=== PATIENT | female | born 1945 | race Caucasian/White ===

== ENCOUNTER → 2016-03-22 | Outpatient (CLI) | payer OTHER ==
[~2016-03-22] MED LIST: ACET325T96 PO; ALBINS/ INH; AMT24 PO; ARTIOIN2 OPB; ARTISOL8 OPB; ARTISPR; ARTISPR PO; ASPCH81X PO; CARB1GEL14 OPB; CLON0.5T3 PO; CRAN1TAB3 PO; CRANLIQ PO; CYAN10005 PO; CYM/30 PO; DICL50TA3 PO; DOCU100C31 PO; DULCOLOX SUPP RE; FAMO1TAB71 PO; FURO-85 PO; GLC/500 PO; GUAISYP4 PO; HMLI SC; INSU100I SC; INSU100I2 SC; LACTCAP3 PO; LEVO50TA6 PO; LINA1CAP PO; LINICRE EXT; LVMI SC; METO1TAB66 PO; METO50TA7 PO; MOML PO; MORP1CAP PO; MORP1CAP96 PO; MORP30TA PO; MOUTLIQ80 PO; MOUTLIQ83 PO; ONDA4TAB46 PO; POLYPOW97 PO; POTA10CA28 PO; PROB1CAP54; SALI0.6510 NAE; SENN-65 PO; SIMV40TA2 PO; SODIENE PR; SPRIN/30 INH; SUMA50TA15 PO; TRAM-10 PO; VENL150T33 PO; [UNRECOGNIZED DRUG - CODE] PO
[2016-03-22 10:39] LABS: BASO % 0.3 %; BASO ABS # 0.02 K/uL (0-0.2); COMPLETE YES; EOS % 3.5 %; HEMATOCRIT 37.8 % (37-47); IG% 0.3 %; LYMPH ABS # 1.75 K/uL (1.2-3.4); MEAN CELL VOLUME 92.9 fL (80-100); MEAN CORPUSCULAR HEMOGLOBIN 29.2 pg (25-34); MEAN CORPUSCULAR HGB CONC 31.5 g/dl (32-36); MEAN PLATELET VOLUME 10.7 fL (7.4-10.4); MONO % 15.2 %; NEUT % 51.7 %; PLATELET COUNT 168 K/uL (130-400); RED BLOOD COUNT 4.07 M/uL (4.2-5.4); WHITE BLOOD COUNT 6.04 K/uL (4.8-10.8)
[2016-03-22 10:57] LABS: BLOOD UREA NITROGEN 17 mg/dl (7-18); BUN/CREATININE RATIO 18.8 (10-20); CALCIUM 9.1 mg/dl (8.5-10.1); CARBON DIOXIDE 33 mmol/L (21-32); CHLORIDE 104 mmol/L (98-107); CREATININE 0.92 mg/dl (0.60-1.20); GLUCOSE 106 mg/dl (70-99); POTASSIUM 4.1 mmol/L (3.5-5.1); SODIUM 144 mmol/L (136-145)
== END ==
LOC: C.LABCC 09:56
PROVIDERS: ATTEND Internal Medicine
DX: N64.9 Disorder of breast, unspecified (principal)

== ENCOUNTER 2016-05-17 07:59 | Day surgery (SDC) | payer OTHER ==
--- NOTE | 2016-04-04 15:41 | PAT Medication Instructions ---
Service Date Apr 04, 2016. Current Home Medication List Acetaminophen Tab (Tylenol), 650 MG PO Q6H PRN for PRN Carboxymethylcellulose-Glyceri (Refresh Optive 1-0.9 %), 1 DOSE OPB QID [place] Oil (Pharmaceutic Aid) ([place] Oil), 30 ML PO QPM Clonazepam (Klonopin), 0.25 MG PO QAM Cranberry (Vaccinium Macrocarp (Cranberry), 450 MG PO QAM Duloxetine HCl (Cymbalta), 1 CAP PO QAM Famotidine (Pepcid), 20 MG PO BID Furosemide (Lasix), 20 MG PO QAM Guaifenesin/Codeine (Robitussin-Ac Syrup), 10 ML PO Q6H PRN for RN Insulin Detemir (Levemir), 90 UNITS SC QPM Insulin Lispro (Humalog), 1 DOSE SC DIRECTED Insulin Lispro (Human) (Humalog Kwikpen), 20 UNITS SC TID Lactobacillus (Acidophilus), 1 CAP PO HS Levothyroxine Sodium (Levothyroxine Sodium), 1 TAB PO QAM Linaclotide (Linzess), 1 CAP PO QAM Lubiprostone (Amitiza), 24 MCG PO BID Magnesium Hydroxide (Milk Of Magnesia), 30 ML PO UD PRN for N Menthol-Methyl Salicylate (Marissa (Bengay Arthritis Formula), 1 DOSE EXT QID PRN for MUSCLE SPASMS Metformin Hcl (Glucophage), 500 MG PO BIDM Metoprolol Succinate (Toprol Xl), 50 MG PO BID Morphine Sulfate (Morphine Sulfate Er), 1 TAB PO Q8H Morphine Sulfate (Morphine Sulfate Er), 1 TAB PO Q8H Mouthwashes (Biotene Pbf Dry Mouth Ashlee), 1 SPRAY PO TID Ondansetron Hcl (Zofran), 4 MG PO Q8H PRN for Nausea Potassium Chloride (Micro-K Ext Rel), 2 TAB PO QAM Senna/Docusate Sod (Senokot S), 4 TAB PO TID Simvastatin (Zocor), 40 MG PO QPM Sodium Phosphate/Biphosphate (Fleet Enema), 1 EA HI DAILY PRN Sumatriptan Succinate (Imitrex), 50 MG PO PRN Tiotropium [place] (Spiriva Handihaler), 1 CAP INH QAM Tramadol (Ultram), 50 MG PO Q6 PRN for Pain Venlafaxine Hcl (Venlafaxine Hcl Er), 1 TAB PO QAM [Artificial Tears], 1 DROP OPB TID PRN for RN [Dulcolox Supp], 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 Instructions For Your Scheduled Surgery - Hold the following medications as of 04/04/16: Cranberry (Vaccinium Macrocarp (Cranberry), 450 MG PO QAM - Hold the following medications 24 hours prior to surgery: Menthol-Methyl Salicylate (Marissa (Bengay Arthritis Formula), 1 DOSE EXT QID PRN for MUSCLE SPASMS - Hold the following medications 48 hours prior to surgery: Metformin Hcl (Glucophage), 500 MG PO BIDM - Hold the following medications the morning of surgery: Carboxymethylcellulose-Glyceri (Refresh Optive 1-0.9 %), 1 DOSE OPB QID Furosemide (Lasix), 20 MG PO QAM Lubiprostone (Amitiza), 24 MCG PO BID Linaclotide (Linzess), 1 CAP PO QAM Mouthwashes (Biotene Pbf Dry Mouth [place]), 1 SPRAY PO TID Guaifenesin/Codeine (Robitussin-Ac Syrup), 10 ML PO Q6H PRN Magnesium Hydroxide (Milk Of Magnesia), 30 ML PO UD PRN [Dulcolox Supp], 1 SUPP RE UD PRN Senna/Docusate Sod (Senokot S), 4 TAB PO TID Sodium Phosphate/Biphosphate (Fleet Enema), 1 EA HI DAILY PRN Potassium Chloride (Micro-K Ext Rel), 2 TAB PO QAM Insulin Lispro (Human) (Humalog Kwikpen), 20 UNITS SC TID Insulin Lispro (Humalog), 1 DOSE SC DIRECTED - Take the following medications the morning of surgery with a sip of water: Acetaminophen Tab (Tylenol), 650 MG PO Q6H PRN for PRN (may take if needed up to 4 hours prior to surgery) Tramadol (Ultram), 50 MG PO Q6 PRN for Pain (may take if needed up to 4 hours prior to surgery) Morphine Sulfate (Morphine Sulfate Er), 1 TAB PO Q8H (may take if needed up to 4 hours prior to surgery) Morphine Sulfate (Morphine Sulfate Er), 1 TAB PO Q8H (may take if needed up to 4 hours prior to surgery) Duloxetine HCl (Cymbalta), 1 CAP PO QAM Famotidine (Pepcid), 20 MG PO BID Levothyroxine Sodium (Levothyroxine Sodium), 1 TAB PO QAM Metoprolol Succinate (Toprol Xl), 50 MG PO BID Clonazepam (Klonopin), 0.25 MG PO QAM Sumatriptan Succinate (Imitrex), 50 MG PO PRN Venlafaxine Hcl (Venlafaxine Hcl Er), 1 TAB PO QAM Tiotropium [place] (Spiriva Handihaler), 1 CAP INH QAM [Dulcolox Supp], 1 SUPP RE UD PRN [Artificial Tears], 1 DROP OPB TID PRN Ondansetron Hcl (Zofran), 4 MG PO Q8H PRN for Nausea - Take the following medications as scheduled the night before surgery: Acetaminophen Tab (Tylenol), 650 MG PO Q6H PRN for PRN Tramadol (Ultram), 50 MG PO Q6 PRN for Pain Morphine Sulfate (Morphine Sulfate Er), 1 TAB PO Q8H Morphine Sulfate (Morphine Sulfate Er), 1 TAB PO Q8H Carboxymethylcellulose-Glyceri (Refresh Optive 1-0.9 %), 1 DOSE OPB QID Famotidine (Pepcid), 20 MG PO BID Simvastatin (Zocor), 40 MG PO QPM Insulin Detemir (Levemir), 90 UNITS SC QPM Metoprolol Succinate (Toprol Xl), 50 MG PO BID Lubiprostone (Amitiza), 24 MCG PO BID Lactobacillus (Acidophilus), 1 CAP PO HS Sumatriptan Succinate (Imitrex), 50 MG PO PRN [place] Oil (Pharmaceutic Aid) ([place] Oil), 30 ML PO QPM Mouthwashes (Biotene Pbf Dry Mouth [place]), 1 SPRAY PO TID Guaifenesin/Codeine (Robitussin-Ac Syrup), 10 ML PO Q6H PRN Magnesium Hydroxide (Milk Of Magnesia), 30 ML PO UD PRN [Artificial Tears], 1 DROP OPB TID PRN Senna/Docusate Sod (Senokot S), 4 TAB PO TID Sodium Phosphate/Biphosphate (Fleet Enema), 1 EA HI DAILY PRN Ondansetron Hcl (Zofran), 4 MG PO Q8H PRN for Nausea Insulin Lispro (Human) (Humalog Kwikpen), 20 UNITS SC TID If you have any questions please call us at [phone] or [phone] or [phone]
[2016-04-04 15:43] VITALS: BMI 48.0
[2016-04-05 10:07] VITALS: BMI 48.0
[~2016-05-17] VITALS: Ht 167.6 cm; Wt 136.4 kg
[~2016-05-17 07:59] MED LIST changes: -ALBINS/ INH; -ARTIOIN2 OPB; -ARTISPR; -ARTISPR PO; -ASPCH81X PO; -CRANLIQ PO; -CYAN10005 PO; -DICL50TA3 PO; -INSU100I SC; +LACTATED RINGER'S 1000ML 1,000 ML IV SCH; +METO-452 PO; -METO1TAB66 PO; -METO50TA7 PO; -MORP30TA PO; -MOUTLIQ83 PO; -PROB1CAP54; -SALI0.6510 NAE
[2016-05-17 09:20] VITALS: BP 135/66; PULSE 89; TEMP 37.7; O2SAT 92; Ht 167.6 cm; Wt 136.4 kg
[2016-05-17] MEDS ORDERED: FENTANYL CITRATE INJ 50 MCG/1 ML 2 ML VIAL ONE (09:48)
[2016-05-17] MEDS ORDERED: MIDAZOLAM HCL 1 MG/ML 2ML VIAL ONE (09:48)
[2016-05-17] MEDS ORDERED: BUPIVACAINE/EPINEPHRINE 0.5% MPF 1:200,000 30 ML VIAL ONE (10:07)
[2016-05-17] MEDS ORDERED: NURSING VERBAL MED ORDER ONE (10:15)
[2016-05-17] MEDS ORDERED: CIPROFLOXACIN / D5W 400 MG IV SCH (10:15)
[2016-05-17] MEDS ORDERED: CIPROFLOXACIN 400MG / 200ML D5W ONE (10:19)
--- NOTE | 2016-05-17 10:19 | History and Physical ---
History & Physical Date May 17, 2016. Chief Complaint pt had abnormal mammogram and bx and excisional bx recommended...pt had needle loc earlier to day and is here for excisional bx History of Present Illness The patient is a 71 year old female with complaints of Past Medical/Surgical History Medical Problems: (1) Chronic urinary tract infection (2) Diabetes mellitus (3) fibromyalgia (4) Herniated disc (5) Hypothyroidism (6) Multiple sclerosis Additional History Hepatic Disease: No Endocrine Disorder: Yes (hypothyroid) Kidney Disease: Yes (hematoma of kidney; vascular disorder of kidney; kidney stones) Hypertension: Yes Other: MS; parkinson's disease; diabetes mellitus; bipolar disorder; Allergies Coded Allergies: Adhesives (Verified Allergy, Unknown, unknown, 05/17/16) Amitriptyline (Verified Allergy, Unknown, unknown, 05/17/16) Amoxicillin (Verified Allergy, Unknown, unknown, 05/17/16) Baclofen (Verified Allergy, Unknown, unknown, 05/17/16) Benzalkonium Chloride (Verified Allergy, Unknown, UNKNOWN, 05/17/16) Benzocaine (Verified Allergy, Unknown, UNKNOWN, 05/17/16) Erythromycin (Verified Allergy, Unknown, unknown, 05/17/16) Isoflurane (Verified Allergy, Unknown, unknown, 05/17/16) Lanolin (Verified Allergy, Unknown, unknown, 05/17/16) Latex (Verified Allergy, Unknown, unknown, 05/17/16) Nitrofurantoin (Verified Allergy, Unknown, unknown, 05/17/16) Oxycodone (Verified Allergy, Unknown, unknown, 05/17/16) PATIENT TOLERATES MORPHINE Penicillins (Verified Allergy, Unknown, unknown, 05/17/16) Procaine (Verified Allergy, Unknown, unknown, 05/17/16) Promethazine (Verified Allergy, Unknown, unknown, 05/17/16) Propoxyphene (Verified Allergy, Unknown, unknown, 05/17/16) Sulfa Drugs (Verified Allergy, Unknown, unknown - CAN TAKE LASIX, 05/17/16) Zinc (Verified Allergy, Unknown, UNKNOWN, 05/17/16) Prednisone (Verified Adverse Reaction, Unknown, UNKNOWN, 05/17/16) Home Medications Scheduled Carboxymethylcellulose-Glyceri (Refresh Optive 1-0.9 %), 1 DOSE OPB QID [place] Oil (Pharmaceutic Aid) ([place] Oil), 30 ML PO QPM Clonazepam (Klonopin), 0.25 MG PO QAM Cranberry (Vaccinium Macrocarp (Cranberry), 450 MG PO QAM Duloxetine HCl (Cymbalta), 1 CAP PO QAM Famotidine (Pepcid), 20 MG PO BID Furosemide (Lasix), 20 MG PO QAM Insulin Detemir (Levemir), 90 UNITS SC QPM Insulin Lispro (Humalog), 1 DOSE SC DIRECTED Insulin Lispro (Human) (Humalog Kwikpen), 20 UNITS SC TID Lactobacillus (Acidophilus), 1 CAP PO HS Levothyroxine Sodium (Levothyroxine Sodium), 1 TAB PO QAM Linaclotide (Linzess), 1 CAP PO QAM Lubiprostone (Amitiza), 24 MCG PO BID Metformin Hcl (Glucophage), 500 MG PO BIDM Metoprolol Succinate (Toprol Xl), 50 MG PO BID Morphine Sulfate (Morphine Sulfate Er), 1 TAB PO Q8H Morphine Sulfate (Morphine Sulfate Er), 1 TAB PO Q8H Mouthwashes (Biotene Pbf Dry Mouth [place]), 1 SPRAY PO TID Potassium Chloride (Micro-K Ext Rel), 2 TAB PO QAM Senna/Docusate Sod (Senokot S), 4 TAB PO TID Simvastatin (Zocor), 40 MG PO QPM Sodium Phosphate/Biphosphate (Fleet Enema), [address] DAILY PRN Sumatriptan Succinate (Imitrex), 50 MG PO PRN Tiotropium [place] (Spiriva Handihaler), 1 CAP INH QAM Venlafaxine Hcl (Venlafaxine Hcl Er), 1 TAB PO QAM Scheduled PRN Acetaminophen Tab (Tylenol), 650 MG PO Q6H PRN for PRN Guaifenesin/Codeine (Robitussin-Ac Syrup), 10 ML PO Q6H PRN for RN Magnesium Hydroxide (Milk Of Magnesia), 30 ML PO UD PRN for N Menthol-Methyl Salicylate (Marissa (Bengay Arthritis Formula), 1 DOSE EXT QID PRN for MUSCLE SPASMS Ondansetron Hcl (Zofran), 4 MG PO Q8H PRN for Nausea Tramadol (Ultram), 50 MG PO Q6 PRN for Pain [Artificial Tears], 1 DROP OPB TID PRN for RN [Dulcolox Supp], 1 SUPP RE UD PRN for RN Physical Examination Skin: warm/dry Eyes: EOMI Head: normocephalic Neck: supple, no adenopathy Respiratory/Chest: no respiratory distress Cardiovascular: regular rate, rhythm Abdomen / GI: non tender Extremities: normal inspection Addiitonal Comments: nonpalpable breast mass. needle in place Diagnosis nonpalpable breast mass.... Plan of Treatment discussed options/risks. plan excisional bx of breast abnormality with needle loc.
[2016-05-17] MEDS ORDERED: ATROPINE SULFATE 0.1 MG/ML 5ML SYR IV PRN (10:30)
[2016-05-17] MEDS ORDERED: EpHEDrine SULFATE INJ 50 MG/ML AMP IV PRN (10:30)
[2016-05-17] MEDS ORDERED: ONDANSETRON INJ 2 MG/ML 2 ML VIAL IV PRN ×2 (10:30→12:00)
[2016-05-17] MEDS ORDERED: PROPOFOL IV EMULSION 10 MG/ML 20 ML VIAL IV ONE (11:00)
[2016-05-17] MEDS ORDERED: LIDOCAINE HCL 2% 2 ML VIAL (20MG/ML) ONE (11:00)
[2016-05-17] MEDS ORDERED: TISSEEL FIBRIN SEALANT 4ML TOP ONE (11:46)
[2016-05-17] MEDS ORDERED: SODIUM CHLORIDE 0.9% 1000ML 1,000 ML IV SCH (11:47)
[2016-05-17] MEDS: FENTANYL CITRATE INJ 50 MCG/1 ML 2 ML VIAL IV PRN ×4 (11:50→12:05)
--- NOTE | 2016-05-17 11:50 | [facility] Operative Report ---
Operative Report Operative Date May 17, 2016. Pre-Operative Diagnosis Abnormal Mammogram, Nonpalable Breast Mass Post-Operative Diagnosis same Procedure(s) Performed right breast lumpectomy s/p needle loc Surgeon Time Signal Wirer Surgeon(s) None Estimated Blood Loss 30 ml Findings abnormal breast tissue...neoplasm vs scarring Specimens A. Right breast tissue /2 short superior and 1 long lateral -Faxitron in room and sent to lab fresh at 1128 Anesthesia mac Disposition Recovery Room / PACU I attest to the content of the Intraoperative Record and any orders documented therein. Any exceptions are noted below.
--- NOTE | 2016-05-17 11:55 | Discharge Instructions ---
Discharge Instructions Date of Service May 17, 2016. Admission Reason for Admission: Rt Breast Lump, Diabetes, Parkinson's/Hosp Loc Discharge Discharge Diagnosis / Problem: right breast mass Discharge Goals Goal(s): Diagnostic testing, Prevent Disease Progression Activity Recommendations Activity Limitations: resume your previous activity Shower/Bathe: tomorrow . Instructions / Follow-Up Instructions / Follow-Up f/u as scheduled with dr. rivas on may 30. call [phone] if any problems or questions..... Current Hospital Diet Patient's current hospital diet: Discharge Diet Recommended Diet: Regular Diet Procedures Procedures Performed: Excisional Biopsy Right Breast with Needle Localization Pending Studies Studies pending at discharge: yes List of pending studies: path report Medical Emergencies . Who to Call and When: Medical Emergencies: If at any time you feel your situation is an emergency, please call 911 immediately. . Non-Emergent Contact Non-Emergency issues call your: Primary Care Provider, Surgeon Call Non-Emergent contact if: temperature is above 101, wound has increased drainage, wound has increased redness, wound has increased pain . "Provider Documentation" section prepared by Mason Rivas. VTE Core Measure Inpt VTE Proph given/why not?: SCD's
[2016-05-17] MEDS ORDERED: MoRPHine SULFATE 4 MG/ML 1 ML CARP\\VIAL IV PRN (12:00)
--- NOTE | 2016-05-17 12:18 | Anesthesiology Progress Note ---
Anesthesia Post Op Note Date & Time May 17, 2016 at 12:18 Vital Signs Vital Signs Past 12 Hours Date Time Temp Pulse Resp B/P Pulse Ox O2 Delivery O2 Flow Rate FiO2 05/17/16 12:10 79 16 126/87 100 Room Air 05/17/16 12:01 81 16 139/99 100 Room Air 05/17/16 11:51 79 16 131/85 94 Room Air 05/17/16 11:44 36.5 79 16 126/76 94 Room Air 05/17/16 09:20 37.7 89 20 135/66 92 Room Air Notes Mental Status: alert / awake / arousable, participated in evaluation Pt Amnestic to Procedure: Yes Nausea / Vomiting: adequately controlled Pain: adequately controlled Airway Patency, RR, SpO2: stable & adequate BP & HR: stable & adequate Hydration State: stable & adequate Anesthetic Complications: no major complications apparent
--- NOTE | 2016-05-17 12:22 | OPERATIVE REPORT ---
DATE OF OPERATION: 05/17/2016 PREOPERATIVE DIAGNOSIS: Abnormal mammogram of the right breast. POSTOPERATIVE DIAGNOSIS: Same. PROCEDURE: Right breast excisional biopsy after wire localization by radiology. SURGEON: Dr. Rivas. ESTIMATED BLOOD LOSS: Approximately 30 mL. COMPLICATIONS: No immediate. ANESTHESIA: MAC with local anesthetic. OPERATIVE NOTE: After informed consent was obtained, the patient was taken to the operating suite, placed in supine position. IV sedation was administered by anesthesia and titrated to effect. The tape and bandage from the needle was taken down and the right breast including the wire were sterilely prepped and draped in usual fashion. prior to incision we did use Marcaine with epinephrine to inject the skin as well as the deep spaces. We tried to create a field block around the area of the known lump. We then made an incision curvilinear just lateral to the wire. We carried this down through the skin and soft tissue using electrocautery. We made skin flaps medially and laterally. I then cut the wire and pulled it through the skin so it was in the middle of the incision. We then continued to use traction countertraction, retractors and electrocautery to continue to take down breast tissue at 360 degrees around the wire keeping it centrally located. We controlled bleeding points as we went primarily with cautery. We did tie off one of the vessels with 3-0 Vicryl. We continued to come down around the tip of the wire. We removed the specimen as 1 piece and oriented it such as 2 short sutures were superior 1 long suture laterally. It was then passed off. Radiograph was performed and did in fact show the clip as well as the wire centrally located in the specimen. We then thoroughly irrigated the wound. We controlled any small bleeders with electrocautery and then covered all the raw surfaces with Tisseel sealant. I then closed the wound with 2-0 Vicryl for the deep layers, 3-0 Vicryl for the mid layers and 4-0 Monocryl for the skin. Dermabond glue was used as a dressing. The patient was awakened and transferred to recovery in stable condition. I attest to the content of the Intraoperative Record and any orders documented therein. Any exceptio ns are noted below.
[2016-05-17 12:30] VITALS: BP 137/84; PULSE 79; TEMP 36.6; O2SAT 97
[2016-05-17 13:00] VITALS: BP 132/81; PULSE 80; O2SAT 97
--- NOTE | 2016-05-17 13:33 | MAMMOGRAPHY REPORT ---
NEEDLE LOCALIZATION RIGHT BREAST: 05/17/2016 CLINICAL HISTORY: Previous biopsy of a hypoechoic lesion in the right 10:00 breast yielded an atypic al glandular proliferation. PROCEDURE DESCRIPTION: The procedure was somewhat difficult due to difficulties with patient derick mary. She remains on a gurney and has difficulties being placed in a oblique position and cannot op timally raise her arm over her head. With imaging guidance, aseptic technique, and 1% lidocaine as the local anesthetic, the area of concern in the right breast at 10:00 was localized under ultrasoun d guidance with a 5 cm Hubbard II needle. The path of approach was lateral. The needle was removed . The hypoechoic lesion and associated biopsy marker clip is located approximately 1 cm proximal to the hook of the wire. The patient tolerated the procedure without complication. COMPARISON: Comparison is made to exams dated: 12/24/2014 ultrasound and 01/18/2016 ultrasound biops [facility]. IMPRESSION: NEEDLE LOCALIZATION Ultrasound guided needle localization of the hypoechoic lesion and associated biopsy marker clip in the right 10:00 breast. Miranda Thapa M.D. /:05/17/2016 08:54:53 Website Designer: Suzanne Cosme, [facility]
--- NOTE | 2016-05-17 13:33 | MAMMOGRAPHY REPORT ---
SPECIMEN RIGHT BREAST: 05/17/2016 CLINICAL HISTORY: Status post right breast surgical excision. COMPARISON: Comparison is made to exams dated: 02/24/2015 aspiration, 12/13/2015 ultrasound, and 12/21 ultrasound biopsy - [facility]. Findings: A radiograph was performed of the right breast surgical specimen. The localized biopsy ma rker clip is present centrally within the specimen. The intact needle localization wire is also pre sent. A vague density with probable associated architectural distortion is seen in the region of th e biopsy marker clip, which likely correlates with the biopsied hypoechoic lesion on ultrasound. Re sults were discussed with Dr. Rivas over the telephone. IMPRESSION: SPECIMEN The imaged specimen contains the localized biopsy marker clip. Miranda Thapa M.D. /:05/17/2016 11:51:06 Tray Delivery Aide: Suzanne Cosme, [facility]
[2016-05-17 13:36] VITALS: BP 132/81; PULSE 80; TEMP 36.6; O2SAT 97
[2016-06-21] MEDS ORDERED: LACTCAP3 PO (09:41)
[2016-06-21] MEDS ORDERED: AMT24 PO (09:41)
[2016-06-21] MEDS ORDERED: METO50TA7 PO (09:41)
[2016-06-21] MEDS ORDERED: MOUTLIQ83 PO (09:41)
[2016-06-21] MEDS ORDERED: SALI0.6510 NAE (09:41)
[2016-06-21] MEDS ORDERED: INSU100I SC (09:41)
[2016-06-21] MEDS ORDERED: CYAN10005 PO (09:41)
[2016-06-21] MEDS ORDERED: ASPCH81X PO (09:41)
[2016-06-21] MEDS ORDERED: ALBINS/ INH (09:41)
[2016-06-21] MEDS ORDERED: CRANLIQ PO (09:41)
[2016-06-28] MEDS ORDERED: LACTCAP3 PO (12:48)
[2016-06-28] MEDS ORDERED: ARTIOIN2 OPB (12:48)
[2016-06-28] MEDS ORDERED: AMT24 PO (12:48)
[2016-06-28] MEDS ORDERED: ARTISPR PO (12:48)
[2016-06-28] MEDS ORDERED: DICL50TA3 PO (12:48)
[2016-07-02] MEDS ORDERED: AMT24 PO (08:48)
[2016-07-02] MEDS ORDERED: PROB1CAP54 (08:48)
[2016-07-02] MEDS ORDERED: ARTISPR (09:09)
[2016-07-02] MEDS ORDERED: MORP30TA PO (12:11)
== END 2016-05-17 13:45 ==
LOC: C.ACU 07:59
PROVIDERS: ATTEND Surgery
DX: D05.91 Unspecified type of carcinoma in situ of right breast (principal); D24.1 Benign neoplasm of right breast; G35 Multiple sclerosis; E11.9 Type 2 diabetes mellitus without complications; E03.9 Hypothyroidism, unspecified; M51.9 Unspecified thoracic, thoracolumbar and lumbosacral intervertebral disc disorder; Z88.0 Allergy status to penicillin; Z88.1 Allergy status to other antibiotic agents; Z88.5 Allergy status to narcotic agent; Z88.8 Allergy status to other drugs, medicaments and biological substances

== ENCOUNTER → 2016-05-17 | Outpatient (CLI) | payer OTHER ==
[~2016-05-17] MED LIST changes: -DOCU100C31 PO; -POLYPOW97 PO
[2016-05-18 17:36] LABS: ALBUMIN 3.1 G/DL (3.8-4.8); GAMMA GLOBULIN 0.5 G/DL (0.8-1.7); TOTAL PROTEIN 5.5 G/DL (6.2-8.3)
--- NOTE | 2016-05-21 12:05 | CODING QUERY MEDICAL NECESSITY ---
SUPPORTING DIAGNOSIS NEEDED A supporting diagnosis is required for the test/procedure performed on this patient in order for us to be reimbursed by the patient's insurance. Please provide a supporting diagnosis for the following test/procedure listed below next to the test name along with your signature. *If there is no additional diagnosis for this patient that would support the following test/procedure please document that below next to the test/procedure. Test(s)/Procedure(s) that require a supporting diagnosis: * VITAMIN B-12 LEVEL DIAGNOSIS: * DOS: 05/17/16 Provider Signature: Date: Thank you Joy Triplett Health Information Management Once completed, please kindly fax back to [phone] For questions please call [phone]
== END ==
LOC: C.LABCC 08:06
PROVIDERS: ATTEND Internal Medicine
DX: G35 Multiple sclerosis (principal); I63.9 Cerebral infarction, unspecified; G62.9 Polyneuropathy, unspecified; R29.898 Other symptoms and signs involving the musculoskeletal system

== ENCOUNTER → 2016-06-15 | Outpatient (CLI) | payer OTHER ==
[~2016-06-15] MED LIST changes: +ALBINS/ INH; +ARTIOIN2 OPB; +ARTISPR; +ARTISPR PO; +ASPCH81X PO; +CEPH500C PO; +CRANLIQ PO; +CYAN10005 PO; +DICL50TA3 PO; +INSU100I SC; -LACTATED RINGER'S 1000ML 1,000 ML IV SCH; +METO50TA7 PO; +MORP30TA PO; +MOUTLIQ83 PO; +PROB1CAP54; +SALI0.6510 NAE
[2016-06-15 17:12] LABS: BLOOD UREA NITROGEN 28 mg/dl (7-18); CREATININE 0.78 mg/dl (0.60-1.20)
== END ==
LOC: C.LABCC 16:43
PROVIDERS: ATTEND Internal Medicine
DX: Z01.818 Encounter for other preprocedural examination (principal)

== ENCOUNTER → 2016-06-28 | Outpatient (CLI) | payer OTHER ==
[~2016-06-28] MED LIST changes: -CARB1GEL14 OPB; -DULCOLOX SUPP RE; -GUAISYP4 PO; -INSU100I2 SC; -METO-452 PO; -MOML PO; -MOUTLIQ80 PO; -SODIENE PR; -SUMA50TA15 PO; -[UNRECOGNIZED DRUG - CODE] PO
[2016-06-28 08:36] LABS: BASO % 0.3 %; BASO ABS # 0.02 K/uL (0-0.2); COMPLETE YES; EOS % 2.8 %; HEMATOCRIT 37.4 % (37-47); IG% 0.3 %; LYMPH % 20.1 %; LYMPH ABS # 1.49 K/uL (1.2-3.4); MEAN CELL VOLUME 91.9 fL (80-100); MEAN CORPUSCULAR HEMOGLOBIN 28.7 pg (25-34); MEAN CORPUSCULAR HGB CONC 31.3 g/dl (32-36); MEAN PLATELET VOLUME 10.4 fL (7.4-10.4); MONO % 11.5 %; PLATELET COUNT 165 K/uL (130-400); RED BLOOD COUNT 4.07 M/uL (4.2-5.4); WHITE BLOOD COUNT 7.42 K/uL (4.8-10.8)
[2016-06-28 08:44] LABS: ALT/SGPT 21 U/L (12-78); BLOOD UREA NITROGEN 26 mg/dl (7-18); BUN/CREATININE RATIO 34.5 (10-20); CARBON DIOXIDE 31 mmol/L (21-32); CHLORIDE 102 mmol/L (98-107); CHOLESTEROL 180 mg/dl (0-200); CREATININE 0.74 mg/dl (0.60-1.20); GLUCOSE 181 mg/dl (70-99); POTASSIUM 4.6 mmol/L (3.5-5.1); SODIUM 140 mmol/L (136-145)
[2016-06-28 08:48] LABS: CALCIUM 9.4 mg/dl (8.5-10.1)
[2016-06-28 08:54] LABS: ALKALINE PHOSPHATASE 141 U/L (45-117); AST/SGOT 13 U/L (15-37); HDL CHOLESTEROL 45 mg/dl; LDL CHOLESTEROL CALCULATED 73 mg/dl; TRIGLYCERIDES 311 mg/dl (0-150); VERY LOW DENSITY LIPOPROT CALC 62 mg/dl
[2016-06-28 09:46] LABS: ESTIMATED AVERAGE GLUCOSE 146 mg/dl; HA1C FLAG Normal (Normal)
== END ==
LOC: C.LABCC 08:04
PROVIDERS: ATTEND Internal Medicine
DX: I10 Essential (primary) hypertension (principal); F32.9 Major depressive disorder, single episode, unspecified; E11.9 Type 2 diabetes mellitus without complications; J44.9 Chronic obstructive pulmonary disease, unspecified

== ENCOUNTER → 2016-07-02 | Day surgery (SDC) | payer OTHER ==
[2016-06-28 12:14] VITALS: BMI 48.0
--- NOTE | 2016-06-28 17:28 | PAT Medication Instructions ---
Service Date June 28, 2016. Current Home Medication List Acetaminophen Tab (Tylenol), 650 MG PO Q6H PRN for PRN Albuterol Sulf (Proventil 0.083% 2.5MG/3ML), 2.5 MG INH Q4H PRN for Shortness of Breath Artificial Saliva (Biotene Moisturizing Mout), 1 SPRAY PO TID Artificial Tear Ointment (Refresh Lacri-Lube), 1 DOSE OPB QID PRN for DRY EYES Aspirin (Aspirin Chewable), 81 MG PO QAM Clonazepam (Klonopin), 0.25 MG PO QAM Cranberry (Vaccinium Macrocarp (Cranberry), 450 MG PO QAM Cranberry-Vitamin C-Inulin (Uti-Stat), 30 ML PO DAILY Cyanocobalamin (Vitamin B-12), 1,000 MCG PO DAILY Diclofenac (Voltaren), 50 MG PO Q8H PRN for HEADACHE Duloxetine HCl (Cymbalta), 1 CAP PO QAM Famotidine (Pepcid), 20 MG PO BID Furosemide (Lasix), 20 MG PO QAM Insulin Detemir (Levemir), 90 UNITS SC QPM Insulin Lispro (Humalog), 1 DOSE SC QID Insulin Lispro (Human) (Humalog), 20 UNITS SC AC Lactobacillus (Acidophilus), 1 CAP PO HS Levothyroxine Sodium (Levothyroxine Sodium), 1 TAB PO QAM Linaclotide (Linzess), 1 CAP PO QAM Lubiprostone (Amitiza), 24 MCG PO BID Menthol-Methyl Salicylate (Marissa (Bengay Arthritis Formula), 1 DOSE EXT QID PRN for MUSCLE SPASMS Metformin Hcl (Glucophage), 500 MG PO BIDM Metoprolol Succ (Toprol Xl) (Toprol-Xl), 1 TAB PO BID Morphine Sulfate (Morphine Sulfate Er), 1 TAB PO Q8H Morphine Sulfate (Morphine Sulfate Er), 1 TAB PO Q8H Ondansetron Hcl (Zofran), 4 MG PO Q8H PRN for Nausea Potassium Chloride (Micro-K Ext Rel), 2 TAB PO QAM Saline ([place] Nasal [place]), 1 SPRAY LITA BID Senna/Docusate Sod (Senokot S), 4 TAB PO TID Simvastatin (Zocor), 40 MG PO QPM Tiotropium [place] (Spiriva Handihaler), 1 CAP INH QAM Tramadol (Ultram), 50 MG PO Q6 PRN for Pain Venlafaxine Hcl (Venlafaxine Hcl Er), 1 TAB PO QAM [Artificial Tears], 1 DROP OPB BID 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 Instructions For Your Scheduled Surgery Aspirin (Aspirin Chewable), 81 MG PO QAM (per surgeon instructions) Diclofenac (Voltaren), 50 MG PO Q8H PRN for HEADACHE (per surgeon instructions) - Hold the following medications starting today 06/28/16: Cranberry (Vaccinium Macrocarp (Cranberry), 450 MG PO QAM Cranberry-Vitamin C-Inulin (Uti-Stat), 30 ML PO DAILY - Hold the following medications 48 hours prior to surgery: Metformin Hcl (Glucophage), 500 MG PO BIDM - Hold the following medications 24 hours prior to surgery: Menthol-Methyl Salicylate (Marissa ([place]eng[place] Arthritis Formula), 1 DOSE EXT QID PRN for MUSCLE SPASMS - Hold the following medications the morning of surgery: Senna/Docusate Sod (Senokot S), 4 TAB PO TID Potassium Chloride (Micro-K Ext Rel), 2 TAB PO QAM Linaclotide (Linzess), 1 CAP PO QAM Insulin Lispro (Human) (Humalog), 20 UNITS SC AC Furosemide (Lasix), 20 MG PO QAM Cyanocobalamin (Vitamin B-12), 1,000 MCG PO DAILY Artificial Saliva (Biotene Moisturizing Mout), 1 SPRAY PO TID Lubiprostone (Amitiza), 24 MCG PO BID - Take the following medications the morning of surgery with a sip of water: Venlafaxine Hcl (Venlafaxine Hcl Er), 1 TAB PO QAM Artificial Tears 1 DROP OPB BID PRN for RN Tiotropium [place] (Spiriva Handihaler), 1 CAP INH QAM Tramadol (Ultram), 50 MG PO Q6 PRN for Pain (can take up to four hours prior to surgery if needed) Saline ([place] Nasal [place]), 1 SPRAY LITA BID Ondansetron Hcl (Zofran), 4 MG PO Q8H PRN for Nausea (only if needed) Morphine Sulfate (Morphine Sulfate Er), 1 TAB PO Q8H (can take up to four hours prior to surgery if needed) Metoprolol Succ (Toprol Xl) (Toprol-Xl), 1 TAB PO BID Levothyroxine Sodium (Levothyroxine Sodium), 1 TAB PO QAM Famotidine (Pepcid), 20 MG PO BID Duloxetine HCl (Cymbalta), 1 CAP PO QAM Clonazepam (Klonopin), 0.25 MG PO QAM Artificial Tear Ointment (Refresh Lacri-Lube), 1 DOSE OPB QID PRN for DRY EYES Albuterol Sulf (Proventil 0.083% 2.5MG/3ML), 2.5 MG INH Q4H PRN for Shortness of Breath (if needed) Acetaminophen Tab (Tylenol), 650 MG PO Q6H PRN for PRN (if needed) - Take the following medications as scheduled the night before surgery: Artificial Tears 1 DROP OPB BID PRN for RN Tramadol (Ultram), 50 MG PO Q6 PRN for Pain Simvastatin (Zocor), 40 MG PO QPM Senna/Docusate Sod (Senokot S), 4 TAB PO TID Saline ([place] Nasal [place]), 1 SPRAY LITA BID Ondansetron Hcl (Zofran), 4 MG PO Q8H PRN for Nausea (only if needed) Morphine Sulfate (Morphine Sulfate Er), 1 TAB PO Q8H Metoprolol Succ (Toprol Xl) (Toprol-Xl), 1 TAB PO BID Lactobacillus (Acidophilus), 1 CAP PO HS Insulin Lispro (Human) (Humalog), 20 UNITS SC AC Insulin Detemir (Levemir), 90 UNITS SC QPM Famotidine (Pepcid), 20 MG PO BID Artificial Tear Ointment (Refresh Lacri-Lube), 1 DOSE OPB QID PRN for DRY EYES Artificial Saliva (Biotene Moisturizing Mout), 1 SPRAY PO TID Albuterol Sulf (Proventil 0.083% 2.5MG/3ML), 2.5 MG INH Q4H PRN for Shortness of Breath Acetaminophen Tab (Tylenol), 650 MG PO Q6H PRN for PRN Lubiprostone (Amitiza), 24 MCG PO BID If you have any questions please call us at [phone] or [phone] ( [place]) or [phone]
[~2016-07-02] VITALS: Ht 167.6 cm; Wt 136.4 kg
[~2016-07-02] MED LIST changes: +ATROPINE SULFATE 0.1 MG/ML 5ML SYR IV PRN; +BUPIVACAINE 0.5 % 5 MG/1 ML MPF 30ML VIAL ONE; +CLINDAMYCIN IV 900 MG in DEXTROSE 5% ADD-VANTAGE 100ML 100 ML IV SCH; +DEXAMETHASONE SOD INJ 4 MG/ML VIAL ONE; +EpHEDrine SULFATE INJ 50 MG/ML AMP IV PRN; +FENTANYL CITRATE INJ 50 MCG/1 ML 2 ML VIAL IV PRN; +FENTANYL CITRATE INJ 50 MCG/1 ML 2 ML VIAL ONE; +ISOSULFAN BLUE 10 MG/ML VIAL 5 ML ONE; +LACTATED RINGER'S 1000ML 1,000 ML IV SCH; +LIDOCAINE HCL 2% 2 ML VIAL (20MG/ML) ONE; +MIDAZOLAM HCL 1 MG/ML 2ML VIAL ONE; -MOUTLIQ83 PO; +MoRPHine SULFATE IR 15 MG TAB (IMMEDIATE RELEASE) PO PRN; +ONDANSETRON INJ 2 MG/ML 2 ML VIAL ONE; +PROPOFOL IV EMULSION 10 MG/ML 20 ML VIAL IV ONE
[2016-07-02 08:53] VITALS: BP 131/63; PULSE 87; TEMP 37.3; O2SAT 95; Ht 167.6 cm; Wt 136.4 kg
--- NOTE | 2016-07-02 09:27 | History & Physical Bridge Note ---
H&P Re-Evaluation Bridge Note: I have examined the patient, reviewed the History & Physical and in the interval since the performance of the History & Physical I have noted the following changes of clinical significance: No changes noted
--- NOTE | 2016-07-02 10:21 | DIAGNOSTIC IMAGING REPORT ---
LYMPHOSCINTIGRAPHY CLINICAL HISTORY: Right breast cancer. PROCEDURE: Using standard sterile technique, 4 intradermal and one deep injection of 0.537 mCi of Lymphoseek was placed in the right breast. The patient tolerated the procedure well. There were no immediate complications. The patient was subsequently transported to the surgical suite. No imaging was obtained at the referring physician's request. IMPRESSION: Injection of 0.537 mCi of Lymphoseek in the right breast. Electronically signed by: Morgan Kelly M.D. 07/02/2016 10:20 AM Dictated Date/Time: 07/02/2016 10:20 AM
--- NOTE | 2016-07-02 11:49 | [facility] Post Operative Brief Note ---
Immediate Operative Summary Operative Date July 02, 2016. Pre-Operative Diagnosis Rt breast cancer Post-Operative Diagnosis same Procedure(s) Performed Rt sentinel lymph node biopsy Surgeon Ld Gift Shop Manager Surgeon(s) Shanta Desai Estimated Blood Loss 10cc Findings sentinel lymph node- negative on frozen section Specimens lymph node Anesthesia gen/ LMA Complication(s) None Disposition Recovery Room / PACU
--- NOTE | 2016-07-02 12:14 | Discharge Instructions ---
Discharge Instructions Date of Service July 02, 2016. Visit Reason for Visit: Right Breast Cancer, Diabetes Discharge Discharge Diagnosis / Problem: Rt breast cancer Discharge Goals Goal(s): Decrease discomfort, Improve function, Improve disease control Activity Recommendations Activity Limitations: as noted below Lifting Limitations: gradually increase as tolerated Exercise/Sports Limitations: gradually increase as tolerated May Resume Sexual Activity: when tolerated Shower/Bathe: tomorrow (do not soak in tub until sutures are removed) SPECIAL CARE INSTRUCTIONS: * Cover incisions and change daily for comfort/drainage. * May use ibuprofen for pain as tolerated. * Expect some swelling and bruising. Call your doctor if: * Temperature above 101 degrees * Pain not relieved by pain medicine ordered * There is increased drainage or redness from any incision * You have any unanswered questions or concerns [phone]. FOLLOW UP VISIT: If not already scheduled, please call the office for a follow-up visit. for 2 weeks- suture removal OFFICE PHONE NUMBER: Dr. Jaffe Office Anesthesia . Post Anesthesia Instructions: If you have had General Anesthesia or IV Sedation: * Do not drive today. * Resume driving when surgeon permits. * Do not make important decisions or sign legal documents today. * Call surgeon for: 1. Temperature elevations greater than 101 degrees F. 2. Uncontrollable pain. 3. Excessive bleeding. 4. Persistent nausea and vomiting. 5. Medication intolerance (nausea, vomiting or rash). * For nausea and vomiting use only clear liquids such as: tea, soda, bouillon until nausea subsides, then gradually increase diet as tolerated. * If you have any concerns or questions, call your surgeon's office. If physician is unavailable and it is an emergency, call 911 or go to the nearest emergency room. . Diet Recommendations Recommended Home Diet: resume previous diet Procedures Procedures Performed: Right [place] Lymph Node Biopsy Pending Studies Studies pending at discharge: no Medical Emergencies . Who to Call and When: Medical Emergencies: If at any time you feel your situation is an emergency, please call 911 immediately. . Non-Emergent Contact Non-Emergency issues call your: Primary Care Provider, Surgeon . . "Provider Documentation" section prepared by Gian Jaffe. .
--- NOTE | 2016-07-02 12:40 | Anesthesiology Progress Note ---
Anesthesia Post Op Note Date & Time July 02, 2016 at 12:40 Vital Signs Pain Intensity: 9 Vital Signs Past 12 Hours Date Time Temp Pulse Resp B/P Pulse Ox O2 Delivery O2 Flow Rate FiO2 07/02/16 12:03 36.2 94 14 122/74 93 Room Air 07/02/16 08:53 37.3 87 20 131/63 95 Room Air Notes Mental Status: alert / awake / arousable, participated in evaluation Pt Amnestic to Procedure: Yes Nausea / Vomiting: adequately controlled Pain: adequately controlled Airway Patency, RR, SpO2: stable & adequate BP & HR: stable & adequate Hydration State: stable & adequate Anesthetic Complications: no major complications apparent
--- NOTE | 2016-07-02 12:48 | OPERATIVE REPORT ---
DATE OF OPERATION: 07/02/2016 NAME OF OPERATION: Right sentinel lymph node biopsy. PREOPERATIVE DIAGNOSIS: Right breast cancer. POSTOPERATIVE DIAGNOSIS: Same. STAFF SURGEON: Dr. Jaffe. ANESTHESIA: General. DESCRIPTION OF PROCEDURE: The patient was brought in the operating room and placed on the operating table in supine position. Her right arm was extended on an arm board. Her right axilla was prepped and draped in usual fashion. Using the Neoprobe, incision was made in the right axilla using 0.5% plain Marcaine to anesthetize the skin and subcutaneous tissue. The dissection was carried down deeply into the axilla, identifying the lymph node using the Neoprobe. Initially, the activity was minimal; however, when I dissected deeper, I was able to identify the lymph node and dissected from surrounding tissue. Tissue was ligated using 2-0 silk suture. Lymph node was then sent for frozen section and found to be negative. Deep tissue was reapproximated using 2-0 plain catgut suture then the skin reapproximated using 4-0 nylon suture. The patient was transferred to recovery room in stable condition. I attest to the content of the Intraoperative Record and any orders documented therein. Any exceptio ns are noted below.
[2016-07-02 12:55] VITALS: BP 119/61; PULSE 93; TEMP 36.8; O2SAT 93
[2016-07-02 13:25] VITALS: BP 142/69; PULSE 90; O2SAT 94
[2016-07-02 14:00] VITALS: BP 145/84; PULSE 95; O2SAT 92
== END | disposition home or self-care (01) ==
LOC: C.ACU 08:31
PROVIDERS: ATTEND Surgery
DX: C50.911 Malignant neoplasm of unspecified site of right female breast (principal); M19.90 Unspecified osteoarthritis, unspecified site; F30.9 Manic episode, unspecified; J44.9 Chronic obstructive pulmonary disease, unspecified; E11.9 Type 2 diabetes mellitus without complications; M79.7 Fibromyalgia; I10 Essential (primary) hypertension; E03.9 Hypothyroidism, unspecified; G35 Multiple sclerosis; Z96.649 Presence of unspecified artificial hip joint; Z87.891 Personal history of nicotine dependence; Z80.0 Family history of malignant neoplasm of digestive organs; Z80.3 Family history of malignant neoplasm of breast

== ENCOUNTER → 2016-07-17 | Outpatient (CLI) | payer OTHER ==
[~2016-07-17] MED LIST changes: -ARTISPR; -ATROPINE SULFATE 0.1 MG/ML 5ML SYR IV PRN; -BUPIVACAINE 0.5 % 5 MG/1 ML MPF 30ML VIAL ONE; -CLINDAMYCIN IV 900 MG in DEXTROSE 5% ADD-VANTAGE 100ML 100 ML IV SCH; -DEXAMETHASONE SOD INJ 4 MG/ML VIAL ONE; -EpHEDrine SULFATE INJ 50 MG/ML AMP IV PRN; -FENTANYL CITRATE INJ 50 MCG/1 ML 2 ML VIAL IV PRN; -FENTANYL CITRATE INJ 50 MCG/1 ML 2 ML VIAL ONE; -ISOSULFAN BLUE 10 MG/ML VIAL 5 ML ONE; -LACTATED RINGER'S 1000ML 1,000 ML IV SCH; -LIDOCAINE HCL 2% 2 ML VIAL (20MG/ML) ONE; -MIDAZOLAM HCL 1 MG/ML 2ML VIAL ONE; -MoRPHine SULFATE IR 15 MG TAB (IMMEDIATE RELEASE) PO PRN; -ONDANSETRON INJ 2 MG/ML 2 ML VIAL ONE; -PROPOFOL IV EMULSION 10 MG/ML 20 ML VIAL IV ONE
[2016-07-17 10:05] LABS: BASO % 0.5 %; BASO ABS # 0.04 K/uL (0-0.2); COMPLETE YES; EOS % 3.5 %; HEMATOCRIT 36.8 % (37-47); IG% 0.1 %; LYMPH % 23.6 %; MEAN CELL VOLUME 91.5 fL (80-100); MEAN CORPUSCULAR HEMOGLOBIN 29.4 pg (25-34); MEAN CORPUSCULAR HGB CONC 32.1 g/dl (32-36); MEAN PLATELET VOLUME 10.1 fL (7.4-10.4); MONO % 10.2 %; NEUT % 62.1 %; PLATELET COUNT 166 K/uL (130-400); RED BLOOD COUNT 4.02 M/uL (4.2-5.4); WHITE BLOOD COUNT 8.49 K/uL (4.8-10.8)
[2016-07-17 10:10] LABS: BLOOD UREA NITROGEN 21 mg/dl (7-18); CARBON DIOXIDE 31 mmol/L (21-32); CHLORIDE 102 mmol/L (98-107); CREATININE 0.93 mg/dl (0.60-1.20); GLUCOSE 304 mg/dl (70-99); POTASSIUM 4.3 mmol/L (3.5-5.1); SODIUM 140 mmol/L (136-145)
[2016-07-17 10:13] LABS: ALB/GLOB RATIO 0.8 (0.9-2); ALT/SGPT 23 U/L (12-78); AST/SGOT 12 U/L (15-37)
[2016-07-17 10:20] LABS: ALKALINE PHOSPHATASE 164 U/L (45-117); BETA-HYDROXYBUTYRATE 0.94 mg/dL (0.2-2.81); CALCIUM 8.8 mg/dl (8.5-10.1)
== END | disposition home or self-care (01) ==
LOC: C.LABCC 09:39
PROVIDERS: ATTEND Internal Medicine
DX: C50.919 Malignant neoplasm of unspecified site of unspecified female breast (principal)

== ENCOUNTER → 2016-07-18 | Outpatient (CLI) | payer OTHER | LOC: C.LABCC 15:41 | PROVIDERS: ATTEND Internal Medicine | DX: C50.919 Malignant neoplasm of unspecified site of unspecified female breast (principal) ==

== ENCOUNTER → 2016-08-14 | Outpatient (CLI) | payer OTHER ==
[2016-08-14 10:19] LABS: BLOOD UREA NITROGEN 27 mg/dl (7-18)
== END ==
LOC: C.LABCC 07:47
PROVIDERS: ATTEND Internal Medicine
DX: C50.919 Malignant neoplasm of unspecified site of unspecified female breast (principal)

== ENCOUNTER → 2016-09-05 | Outpatient (CLI) | payer OTHER ==
[~2016-09-05] MED LIST changes: -CEPH500C PO
[2016-09-05 09:40] LABS: MEAN CORPUSCULAR HGB CONC 31.3 g/dl (32-36); MEAN PLATELET VOLUME 10.8 fL (7.4-10.4); PLATELET COUNT 131 K/uL (130-400)
[2016-09-05 09:50] LABS: ALB/GLOB RATIO 0.9 (0.9-2); ALT/SGPT 36 U/L (12-78); AST/SGOT 24 U/L (15-37); BLOOD UREA NITROGEN 20 mg/dl (7-18); BUN/CREATININE RATIO 19.8 (10-20); CARBON DIOXIDE 35 mmol/L (21-32); CHLORIDE 102 mmol/L (98-107); GLUCOSE 347 mg/dl (70-99); POTASSIUM 4.5 mmol/L (3.5-5.1); SODIUM 140 mmol/L (136-145)
[2016-09-05 09:58] LABS: ALKALINE PHOSPHATASE 126 U/L (45-117)
[2016-09-05 10:48] LABS: HEMATOCRIT 39.3 % (37-47); MEAN CELL VOLUME 93.8 fL (80-100); MEAN CORPUSCULAR HEMOGLOBIN 29.4 pg (25-34); RED BLOOD COUNT 4.19 M/uL (4.2-5.4); WHITE BLOOD COUNT 4.35 K/uL (4.8-10.8)
[2016-09-05 10:51] LABS: BASO % 0.5 %; BASO ABS # 0.02 K/uL (0-0.2); COMPLETE YES; EOS % 3.7 %; IG% 0.5 %; LYMPH % 24.1 %; LYMPH ABS # 1.05 K/uL (1.2-3.4); MONO % 21.4 %; NEUT % 49.8 %
== END | disposition home or self-care (01) ==
LOC: C.LABCC 09:25
PROVIDERS: ATTEND Internal Medicine
DX: C50.919 Malignant neoplasm of unspecified site of unspecified female breast (principal)

== ENCOUNTER 2016-12-31 17:42 | Emergency (ER) | payer OTHER ==
[~2016-12-31] VITALS: Ht 172.7 cm; Wt 110.5 kg
[2016-12-31 17:51] VITALS: TEMP 37.3; Ht 172.7 cm; Wt 110.5 kg
[2016-12-31 18:35] LABS: BASO % 0.5 %; BASO ABS # 0.04 K/uL (0-0.2); COMPLETE YES; HEMATOCRIT 38.1 % (37-47); IG% 0.1 %; LYMPH % 18.7 %; MEAN CELL VOLUME 94.3 fL (80-100); MEAN CORPUSCULAR HEMOGLOBIN 29.7 pg (25-34); MEAN CORPUSCULAR HGB CONC 31.5 g/dl (32-36); MEAN PLATELET VOLUME 10.2 fL (7.4-10.4); MONO % 8.2 %; NEUT % 69.5 %; PLATELET COUNT 164 K/uL (130-400); RED BLOOD COUNT 4.04 M/uL (4.2-5.4); WHITE BLOOD COUNT 8.56 K/uL (4.8-10.8)
[2016-12-31 18:52] LABS: ALT/SGPT 30 U/L (12-78); BLOOD UREA NITROGEN 20 mg/dl (7-18); BUN/CREATININE RATIO 21.5 (10-20); CALCIUM 9.2 mg/dl (8.5-10.1); CARBON DIOXIDE 30 mmol/L (21-32); CHLORIDE 100 mmol/L (98-107); CREATININE 0.93 mg/dl (0.60-1.20); GLUCOSE 184 mg/dl (70-99); POTASSIUM 4.6 mmol/L (3.5-5.1); SODIUM 140 mmol/L (136-145)
[2016-12-31 18:55] LABS: ALKALINE PHOSPHATASE 145 U/L (45-117); AST/SGOT 22 U/L (15-37)
--- NOTE | 2016-12-31 19:02 | DIAGNOSTIC IMAGING REPORT ---
LUMBAR SPINE WITHOUT CLINICAL HISTORY: Lower back and abdominal pain. COMPARISON STUDY: CT of the lumbar spine August 21, 2012. FINDINGS: Mild dextroscoliosis of the lumbar spine is noted. A mild superior endplate L1 compression fracture is unchanged since CT of August 21, 2012. There is no acute lumbar spine fracture or subluxation. Disc space narrowing with osteophytosis and vacuum disc phenomenon at L5-S1 is similar to prior exam. Central canal and neural foramen are suboptimally assessed by CT. Paravertebral soft tissues are unremarkable. The CT of the abdomen and pelvis will be reported separately. There is moderate multilevel facet arthrosis. IMPRESSION: 1. No acute lumbar spine fracture or subluxation. 2. Old mild superior endplate L1 compression fracture which is unchanged since CT of August 21, 2012. 3. Moderate multilevel degenerative disc disease and facet arthrosis of the lumbar spine. Electronically signed by: Rojelio Bill M.D. 12/31/2016 7:00 PM Dictated Date/Time: 12/31/2016 6:55 PM
--- NOTE | 2016-12-31 19:04 | DIAGNOSTIC IMAGING REPORT ---
ABDOMEN AND PELVIS CT WITHOUT CONTRAST CT DOSE: 1820.71 mGy.cm HISTORY: Acute low back and abdominal pain. No reported trauma lower back pain TECHNIQUE: Multiaxial CT images of the abdomen and pelvis were performed without contrast. A dose lowering technique was utilized adhering to the principles of ALARA. COMPARISON STUDY: CT abdomen and pelvis 05/22/2012. FINDINGS: Lung bases are generally clear. Small left Bochdalek hernia. There is no pneumoperitoneum. Study is mildly limited secondary to patient arm positioning. The imaged inferior cardiac chambers are unremarkable. There are calcifications of the mitral annulus. Nonspecific calcification of the right hepatic lobe near the middle hepatic vein. 11 mm low attenuating lesion of the inferior right hepatic lobe and 9 mm low attenuating lesion of the lateral left hepatic lobe are noted in addition to a 9 mm lesion of the hepatic dome. These lesions are nonspecific however suggests hepatic cysts. Gallbladder is contracted. The spleen and left adrenal gland are unremarkable. There is a low attenuating 10 mm right adrenal nodule suggesting an adenoma. Multifocal renal parenchymal scarring and cortical lobulation is present bilaterally. Multiple bilateral low attenuating renal lesions suggests cysts. Cysts with calcifications are noted in the inferior pole left kidney compatible with complex cysts. Focal area of increased attenuation within the interpolar left kidney, 4 mm may also reflect a complex cyst. Nonobstructing 3 mm calculus seen within the interpolar right kidney. No ureteral calculi or hydronephrosis. Moderate left fat filled inguinal hernias noted containing a portion of the left lateral urinary bladder. Nonspecific calcifications are seen within the hernia sac. Uterus appears age-appropriate. No definite adnexal mass lesions identified. Moderate to extensive atherosclerosis of the abdominal aorta. No bulky adenopathy identified. No bowel obstruction or focal bowel wall thickening. Moderate stool volume throughout the colon with mild rectal wall thickening. Scattered noninflamed colonic diverticulosis. The appendix appears noninflamed. Diastases recti. Right hip arthroplasty noted. Bones appear mildly demineralized. Multilevel degenerative changes of the spine. Dextroscoliosis of the lumbar spine. IMPRESSION: 1. Moderate stool volume throughout the colon suggest constipation. Mild associated rectal wall thickening may reflect underlying stercoral proctitis. No bowel obstruction. 2. Normal appendix. 3. Colonic diverticulosis without diverticulitis. 4. 3 mm nonobstructing calculus of the interpolar right kidney. 5. Moderate sized fat filled left inguinal hernia contains a portion of the anterolateral left urinary bladder. 6. Additional findings as above. Electronically signed by: Eric Oconnor M.D. 12/31/2016 7:03 PM Dictated Date/Time: 12/31/2016 6:53 PM
[2016-12-31 22:26] LABS: URINE APPEARANCE CLOUDY (CLEAR); URINE BILIRUBIN NEG (NEG); URINE COLOR YELLOW; URINE EPITHELIAL CELL AUTO >30 /lpf (0-5); URINE NITRITE NEG (NEG); URINE PH 6.5 (4.5-7.5); URINE SPECIFIC GRAVITY 1.014 (1.000-1.030); UROBILINOGEN NEG (NEG); ZZURINE CULT IF INDIC CATH YES
[2016-12-31 22:30] LABS: MANUAL MICROSCOPIC REQUIRED? NO; REVIEW REQ? YES
[2016-12-31] MEDS ORDERED: CEPH500C PO (22:49)
[2016-12-31] MEDS ORDERED: CEPHALEXIN MONOHYDRATE 250 MG CAP PO ONE (23:00)
--- NOTE | 2016-12-31 23:38 | EMERGENCY ROOM VISIT NOTE ---
History Report prepared by Amelia: Shruti Elizabeth Under the Supervision of: Anjel RiosO. First contact with patient: 17:48 Stated Complaint: BACK PAIN History of Present Illness The patient is a 71 year old female who presents to the Emergency Room with complaints of constant lower back pain beginning 4 days ago. The patient states that she has a history of MS and has been having back pain for the last 4 days. She reports that she does not normally get out of bed and her last bowel movement was this afternoon. She notes that her back pain is worsened with sitting up. The patient denies any new pain, numbness or weakness, new urinary symptoms, new abdominal pain, nausea, vomiting, dysuria, and recent trauma. She notes that her left leg is normally slightly weaker than right. Source of History: patient Onset: 4 days ago Position: back (lower) Timing: constant Modifying Factors (Worsening): other (sitting up) Associated Symptoms: No nausea, No vomiting, No abdominal pain, No urinary symptoms, No weakness, No numbness Note: The patient denies any new pain and recent trauma. Review of Systems See HPI for pertinent positives & negatives. A total of 10 systems reviewed and were otherwise negative. Past Medical & Surgical Medical Problems: (1) Chronic urinary tract infection (2) Diabetes mellitus (3) fibromyalgia (4) Herniated disc (5) Hypothyroidism (6) Multiple sclerosis Family History No pertinent family history stated. Social History Smoking Status: Never Smoker Marital Status: Housing Status: halfway Occupation Status: retired Current/Historical Medications Scheduled Artificial Saliva (Biotene Moisturizing Mout), 1 SPRAY PO TID Aspirin (Aspirin Chewable), 81 MG PO QAM Cephalexin Monohydrate (Keflex), 500 MG PO TID Clonazepam (Klonopin), 0.25 MG PO QAM Cranberry (Vaccinium Macrocarp (Cranberry), 450 MG PO QAM Cranberry-Vitamin C-Inulin (Uti-Stat), 30 ML PO DAILY Cyanocobalamin (Vitamin B-12), 1,000 MCG PO DAILY Duloxetine HCl (Cymbalta), 1 CAP PO QAM Famotidine (Pepcid), 20 MG PO BID Furosemide (Lasix), 20 MG PO QAM Insulin Detemir (Levemir), 90 UNITS SC QPM Insulin Lispro (Humalog), 1 DOSE SC QID Insulin Lispro (Human) (Humalog), 20 UNITS SC AC Lactobacillus (Acidophilus), 1 CAP PO HS Levothyroxine Sodium (Levothyroxine Sodium), 1 TAB PO QAM Linaclotide (Linzess), 1 CAP PO QAM Lubiprostone (Amitiza), 24 MCG PO BID Metformin Hcl (Glucophage), 500 MG PO BIDM Metoprolol Succ (Toprol Xl) (Toprol-Xl), 1 TAB PO BID Morphine Sulfate (Morphine Sulfate Er), 1 TAB PO Q8H Morphine Sulfate (Morphine Sulfate Er), 1 TAB PO Q8H Morphine Sulfate (Morphine Sulfate Ir), 30 MG PO Q4 Potassium Chloride (Micro-K Ext Rel), 2 TAB PO QAM Saline (Camanche Nasal [place]), 1 SPRAY LITA BID Senna/Docusate Sod (Senokot S), 4 TAB PO TID Simvastatin (Zocor), 40 MG PO QPM Tiotropium Morrow (Spiriva Handihaler), 1 CAP INH QAM Venlafaxine Hcl (Venlafaxine Hcl Er), 1 TAB PO QAM Scheduled PRN Acetaminophen Tab (Tylenol), 650 MG PO Q6H PRN for PRN Albuterol Sulf (Proventil 0.083% 2.5MG/3ML), 2.5 MG INH Q4H PRN for Shortness of Breath Artificial Tear Ointment (Refresh Lacri-Lube), 1 DOSE OPB QID PRN for DRY EYES Diclofenac (Voltaren), 50 MG PO Q8H PRN for HEADACHE Menthol-Methyl Salicylate (Marissa (Bengay Arthritis Formula), 1 DOSE EXT QID PRN for MUSCLE SPASMS Ondansetron Hcl (Zofran), 4 MG PO Q8H PRN for Nausea Tramadol (Ultram), 50 MG PO Q6 PRN for Pain [Artificial Tears], 1 DROP OPB BID PRN for RN Miscellaneous Medications Probiotic Product (Acidophilus) Allergies Coded Allergies: Adhesives (Verified Allergy, Unknown, unknown, 07/02/16) Amitriptyline (Verified Allergy, Unknown, unknown, 07/02/16) Amoxicillin (Verified Allergy, Unknown, unknown, 07/02/16) Baclofen (Verified Allergy, Unknown, unknown, 07/02/16) Benzalkonium Chloride (Verified Allergy, Unknown, UNKNOWN, 07/02/16) Benzocaine (Verified Allergy, Unknown, UNKNOWN, 07/02/16) Erythromycin (Verified Allergy, Unknown, unknown, 07/02/16) Isoflurane (Verified Allergy, Unknown, unknown, 07/02/16) Lanolin (Verified Allergy, Unknown, unknown, 07/02/16) Latex (Verified Allergy, Unknown, unknown, 07/02/16) Nitrofurantoin (Verified Allergy, Unknown, unknown, 07/02/16) Oxycodone (Verified Allergy, Unknown, unknown, 07/02/16) PATIENT TOLERATES MORPHINE Penicillins (Verified Allergy, Unknown, unknown, 07/02/16) Procaine (Verified Allergy, Unknown, unknown, 07/02/16) Promethazine (Verified Allergy, Unknown, unknown, 07/02/16) Propoxyphene (Verified Allergy, Unknown, unknown, 07/02/16) Sulfa Antibiotics (Verified Allergy, Unknown, CAN TAKE LASIX, 07/02/16) Zinc (Verified Allergy, Unknown, UNKNOWN, 07/02/16) Prednisone (Verified Adverse Reaction, Unknown, UNKNOWN, 07/02/16) Uncoded Allergies: STEROID (Allergy, Intermediate, Unknown, 07/02/16) Physical Exam Vital Signs Date Time Temp Pulse Resp B/P (MAP) Pulse Ox O2 Delivery O2 Flow Rate FiO2 12/31/16 21:14 92 20 90/72 95 Room Air 12/31/16 17:51 37.3 96 18 133/81 93 Room Air Physical Exam GENERAL: Laying in bed, alert, chronically ill appearing appearing, well nourished, no distress, non-toxic EYE EXAM: normal conjunctiva. OROPHARYNX: no exudate, no erythema, lips, buccal mucosa, and tongue normal and mucous membranes are moist NECK: supple, no nuchal rigidity, no adenopathy, non-tender LUNGS: Clear to auscultation. Normal chest wall mechanics HEART: no murmurs, S1 normal and S2 normal ABDOMEN: abdomen soft, non-tender, normo-active bowel sounds, no masses, no rebound or guarding. BACK: Back is symmetrical on inspection and there is no deformity, no midline tenderness, no CVA tenderness. Bilateral mid to upper lumbar paraspinal tenderness to palpation. SKIN: no rashes and no bruising UPPER EXTREMITIES: upper extremities are grossly normal. LOWER EXTREMITIES: No pitting edema. Flexes at the right hip, unable to flex with hip (old per patient) plantar and dorsal flexion intact along with EHL. NEURO EXAM: Normal sensorium, cranial nerves II-XII grossly intact, normal speech, no gross weakness of arms. Medical Decision & Procedures ER Provider Diagnostic Interpretation: Radiology results as stated below per my review and the radiologist's interpretation: LUMBAR SPINE WITHOUT FINDINGS: Mild dextroscoliosis of the lumbar spine is noted. A mild superior endplate L1 compression fracture is unchanged since CT of August 21, 2012. There is no acute lumbar spine fracture or subluxation. Disc space narrowing with osteophytosis and vacuum disc phenomenon at L5-S1 is similar to prior exam. Central canal and neural foramen are suboptimally assessed by CT. Paravertebral soft tissues are unremarkable. The CT of the abdomen and pelvis will be reported separately. There is moderate multilevel facet arthrosis. IMPRESSION: 1. No acute lumbar spine fracture or subluxation. 2. Old mild superior endplate L1 compression fracture which is unchanged since CT of August 21, 2012. 3. Moderate multilevel degenerative disc disease and facet arthrosis of the lumbar spine. Electronically signed by: Rojelio Bill M.D. 12/31/2016 7:00 PM Dictated Date/Time: 12/31/2016 6:55 PM [address]EN AND PELVIS CT WITHOUT CONTRAST FINDINGS: Lung bases are generally clear. Small left Bochdalek hernia. There is no pneumoperitoneum. Study is mildly limited secondary to patient arm positioning. The imaged inferior cardiac chambers are unremarkable. There are calcifications of the mitral annulus. Nonspecific calcification of the right hepatic lobe near the middle hepatic vein. 11 mm low attenuating lesion of the inferior right hepatic lobe and 9 mm low attenuating lesion of the lateral left hepatic lobe are noted in addition to a 9 mm lesion of the hepatic dome. These lesions are nonspecific however suggests hepatic cysts. Gallbladder is contracted. The spleen and left adrenal gland are unremarkable. There is a low attenuating 10 mm right adrenal nodule suggesting an adenoma. Multifocal renal parenchymal scarring and cortical lobulation is present bilaterally. Multiple bilateral low attenuating renal lesions suggests cysts. Cysts with calcifications are noted in the inferior pole left kidney compatible with complex cysts. Focal area of increased attenuation within the interpolar left kidney, 4 mm may also reflect a complex cyst. Nonobstructing 3 mm calculus seen within the interpolar right kidney. No ureteral calculi or hydronephrosis. Moderate left fat filled inguinal hernias noted containing a portion of the left lateral urinary bladder. Nonspecific calcifications are seen within the hernia sac. Uterus appears age-appropriate. No definite adnexal mass lesions identified. Moderate to extensive atherosclerosis of the abdominal aorta. No bulky adenopathy identified. No bowel obstruction or focal bowel wall thickening. Moderate stool volume throughout the colon with mild rectal wall thickening. Scattered noninflamed colonic diverticulosis. The appendix appears noninflamed. Diastases recti. Right hip arthroplasty noted. Bones appear mildly demineralized. Multilevel degenerative changes of the spine. Dextroscoliosis of the lumbar spine. IMPRESSION: 1. Moderate stool volume throughout the colon suggest constipation. Mild associated rectal wall thickening may reflect underlying stercoral proctitis. No bowel obstruction. 2. Normal appendix. 3. Colonic diverticulosis without diverticulitis. 4. 3 mm nonobstructing calculus of the interpolar right kidney. 5. Moderate sized fat filled left inguinal hernia contains a portion of the anterolateral left urinary bladder. 6. Additional findings as above. Electronically signed by: Eric Oconnor M.D. 12/31/2016 7:03 PM Dictated Date/Time: 12/31/2016 6:53 PM Laboratory Results 12/31/16 18:20 Red Blood Count 4.04, Mean Corpuscular Volume 94.3, Mean Corpuscular Hemoglobin 29.7, Mean Corpuscular Hemoglobin Concent 31.5, Mean Platelet Volume 10.2, Neutrophils (%) (Auto) 69.5, Lymphocytes (%) (Auto) 18.7, Monocytes (%) (Auto) 8.2, Eosinophils (%) (Auto) 3.0, Basophils (%) (Auto) 0.5, Neutrophils # (Auto) 5.95, Lymphocytes # (Auto) 1.60, Monocytes # (Auto) 0.70, Eosinophils # (Auto) 0.26, Basophils # (Auto) 0.04 12/31/16 18:20 Test 12/31/16 18:20 12/31/16 22:00 White Blood Count 8.56 K/uL (4.8-10.8) Red Blood Count 4.04 M/uL (4.2-5.4) Hemoglobin 12.0 g/dL (12.0-16.0) Hematocrit 38.1 % (37-47) Mean Corpuscular Volume 94.3 fL (80-100) Mean Corpuscular Hemoglobin 29.7 pg (25-34) Mean Corpuscular Hemoglobin Concent 31.5 g/dl (32-36) Platelet Count 164 K/uL (130-400) Mean Platelet Volume 10.2 fL (7.4-10.4) Neutrophils (%) (Auto) 69.5 % Lymphocytes (%) (Auto) 18.7 % Monocytes (%) (Auto) 8.2 % Eosinophils (%) (Auto) 3.0 % Basophils (%) (Auto) 0.5 % Neutrophils # (Auto) 5.95 K/uL (1.4-6.5) Lymphocytes # (Auto) 1.60 K/uL (1.2-3.4) Monocytes # (Auto) 0.70 K/uL (0.11-0.59) Eosinophils # (Auto) 0.26 K/uL (0-0.5) Basophils # (Auto) 0.04 K/uL (0-0.2) RDW Standard Deviation 51.6 fL (36.4-46.3) RDW Coefficient of Variation 15.1 % (11.5-14.5) Immature Granulocyte % (Auto) 0.1 % Immature Granulocyte # (Auto) 0.01 K/uL (0.00-0.02) Anion Gap 9.0 mmol/L (3-11) Est Creatinine Clear Calc Drug Dose 73.3 ml/min Estimated GFR () 72.2 Estimated GFR (Non- 62.3 BUN/Creatinine Ratio 21.5 (10-20) Calcium Level 9.2 mg/dl (8.5-10.1) Total Bilirubin 0.2 mg/dl (0.2-1) Direct Bilirubin < 0.1 mg/dl (0-0.2) Aspartate Amino Transf (AST/SGOT) 22 U/L (15-37) Alanine Aminotransferase (ALT/SGPT) 30 U/L (12-78) Alkaline Phosphatase 145 U/L (45-117) Total Protein 6.7 gm/dl (6.4-8.2) Albumin 3.1 gm/dl (3.4-5.0) Lipase 238 U/L (73-393) Urine Color YELLOW Urine Appearance CLOUDY (CLEAR) Urine pH 6.5 (4.5-7.5) Urine Specific [place] 1.014 (1.000-1.030) Urine Protein NEG (NEG) Urine Glucose (UA) NEG (NEG) Urine Ketones NEG (NEG) Urine Occult Blood TRACE (NEG) Urine Nitrite NEG (NEG) Urine Bilirubin NEG (NEG) Urine Urobilinogen NEG (NEG) Urine Leukocyte Esterase LARGE (NEG) Urine WBC (Auto) >30 /hpf (0-5) Urine RBC (Auto) 5-10 /hpf (0-4) Urine Hyaline Casts (Auto) 5-10 /lpf (0-5) Urine Epithelial Cells (Auto) >30 /lpf (0-5) Urine Bacteria (Auto) 2+ (NEG) Urine Renal Epithelial Cells 5-10 /lpf (0-5) Laboratory results per my review. ED Course ED COURSE: Vital signs were reviewed and showed tachycardia The patients medical record was reviewed The above diagnostic studies were performed and reviewed. ED treatments and interventions as stated above. 1747: The patient was evaluated in room B5. A complete history and physical examination was performed. 1852: I reevaluated and updated the patient. She is doing well. 1905: The patient denies a straight cath. 1932: I spoke to Dr. Mayen and she said that it is non surgical in regards to the bladder. 1935: I spoke to Dr. Rivas who suggests that the patient follows up as an outpatient. 1952: I reevaluated and updated the patient. 2299: Keflex Cap 500mg PO. 2302: Upon reevaluation, the patient is doing well.I discussed my findings with the patient and she understands and agrees with the treatment plan. Based on the patients age, coexisting illnesses, exam and lab findings the decision to treat as an outpatient was made. The patient remained stable while under my care. The patient appeared well at the time of discharge. Medical Decision Differential diagnosis: Etiologies such as musculoskeletal, disc herniation, fracture, aortic disease, metastatic disease, cord compression, discitis, infection, renal colic, gastrointestinal, acute exacerbation of chronic back pain, sciatica, cauda equina, as well as others were entertained. Patient is a 71-year-old female that presents to ER for lower back pain. This radiates out bilaterally. She denies any new weakness numbness. She has a history of urinary incontinence and notes that this is not new. No saddle paresthesias. Left leg is weaker than right and this is present for quite some time secondary to MS. CT lumbar spine was unremarkable. CT of the abdomen shows a hernia which involves the bladder in the left inguinal canal. Discussed with urology and Gen. surgery. Both recommend follow-up as an outpatient. We eventually obtained a UA which was contaminated. She declined straight cath. Patient notes that she has no symptoms but we both agreed to start her on an antibiotic at this time. Patient was updated bedside. She is discharged to follow-up from [facility]. Discussed with Pt concerning signs and symptoms to watch out for. Pt was instructed to follow up with their PCP and discussed with the patient their option to return to the ED at anytime for persistent or worsening symptoms. The appropriate anticipatory guidance and out- patient management, including indications for return to the emergency department , were explained at length to the patient and understood. Medication Reconcilliation Current Medication List: was personally reviewed by me Blood Pressure Screening Patient's blood pressure: Elevated blood pressure Blood pressure disposition: Elevated BP felt to be situational Impression Primary Impression: Back pain Additional Impressions: Hernia of bladder UTI (urinary tract infection) Scribe Attestation The scribe's documentation has been prepared under my direction and personally reviewed by me in its entirety. I confirm that the note above accurately reflects all work, treatment, procedures, and medical decision making performed by me. Departure Information Dispostion Home / Self-Care Prescriptions Cephalexin Monohydrate (Keflex) 500 Mg Cap 500 MG PO TID for 7 Days, CAP Prov: Robbin Casey DO 12/31/16 [facility] Forms HOME CARE DOCUMENTATION FORM, IMPORTANT VISIT INFORMATION Patient Instructions Back Pain - [facility], [facility] Additional Instructions Please follow up with your primary care doctor with in the next 24 hours. Any worsening of your symptoms, please return to the ED immediately. This includes any fevers greater than 100.4, worsening pain, chest pain, shortness breath, persistent nausea, vomiting, unable to eat or drink, or any other concerning signs or symptoms from your standpoint. Please follow up with general surgery for a left inguinal hernia which contains portion of your bladder. We do not believe that this is acute at this time. This should be followed up. Problem Qualifiers Primary Impression: Back pain Back pain location: back pain in unspecified location Chronicity: unspecified Back pain laterality: unspecified Qualified Codes: M54.9 - Dorsalgia, unspecified Additional Impressions: UTI (urinary tract infection) Urinary tract infection type: site unspecified Hematuria presence: with hematuria Qualified Codes: N39.0 - Urinary tract infection, site not specified ; R31.9 - Hematuria, unspecified
[2017-01-01] MEDS ORDERED: MoRPHine SULFATE CR 15 MG TAB (MS CONTIN) PO STA (00:25)
[2017-01-01 02:16] VITALS: BP 152/99; PULSE 82; O2SAT 95
== END 2017-01-01 02:17 | disposition home or self-care (01) ==
LOC: EDBD 17:42 → C.EDB 17:44
DX: M54.5 Low back pain (principal); N81.10 Cystocele, unspecified; N39.0 Urinary tract infection, site not specified; E11.9 Type 2 diabetes mellitus without complications; E03.9 Hypothyroidism, unspecified; G35 Multiple sclerosis; Z87.440 Personal history of urinary (tract) infections; Z79.82 Long term (current) use of aspirin; Z79.4 Long term (current) use of insulin; Z79.84 Long term (current) use of oral hypoglycemic drugs; Z79.899 Other long term (current) drug therapy; Z88.0 Allergy status to penicillin; Z88.1 Allergy status to other antibiotic agents; Z88.2 Allergy status to sulfonamides; Z88.5 Allergy status to narcotic agent; Z88.8 Allergy status to other drugs, medicaments and biological substances; Z91.040 Latex allergy status; Z91.09 Other allergy status, other than to drugs and biological substances

== ENCOUNTER → 2017-01-23 | Outpatient (CLI) | payer OTHER ==
[2017-01-23 13:21] LABS: BASO % 0.4 %; BASO ABS # 0.04 K/uL (0-0.2); COMPLETE YES; EOS % 3.4 %; HEMATOCRIT 39.6 % (37-47); IG% 0.1 %; LYMPH % 19.2 %; LYMPH ABS # 1.74 K/uL (1.2-3.4); MEAN CELL VOLUME 94.7 fL (80-100); MEAN CORPUSCULAR HEMOGLOBIN 29.9 pg (25-34); MEAN CORPUSCULAR HGB CONC 31.6 g/dl (32-36); MEAN PLATELET VOLUME 10.3 fL (7.4-10.4); MONO % 12.6 %; NEUT % 64.3 %; PLATELET COUNT 195 K/uL (130-400); RED BLOOD COUNT 4.18 M/uL (4.2-5.4); WHITE BLOOD COUNT 9.06 K/uL (4.8-10.8)
[2017-01-23 13:50] LABS: ESTIMATED AVERAGE GLUCOSE 163 mg/dl; HA1C FLAG Normal (Normal)
[2017-01-23 14:01] LABS: FERRITIN 18.5 ng/ml (8.0-388.0)
== END | disposition home or self-care (01) ==
LOC: C.LAB1850 12:00
PROVIDERS: ATTEND Dermatology
DX: L65.9 Nonscarring hair loss, unspecified (principal); L30.4 Erythema intertrigo; L71.9 Rosacea, unspecified; E11.9 Type 2 diabetes mellitus without complications

== ENCOUNTER → 2017-01-25 | Outpatient (CLI) | payer OTHER ==
[~2017-01-25] MED LIST changes: +FAMO-103 PO; -FAMO1TAB71 PO
--- NOTE | 2017-01-25 13:38 | MAMMOGRAPHY REPORT ---
ULTRASOUND OF RIGHT BREAST: 01/25/2017 CLINICAL HISTORY: History of right breast cancer status post lumpectomy April 2016. The patient had residual pain after her surgery at her surgical bed, which is now resolved. The patient currently mensah s no lump, pain, or other breast complaints. COMPARISON: Comparison is made to exams dated: 05/17/2016 specimen, 05/17/2016 localization, 6 ultrasound biopsy, 12/13/2015 ultrasound, 02/24/2015 aspiration, and 12/24/2014 ultrasound - [facility]. TECHNIQUE: Real-time targeted ultrasound of the right breast was performed. FINDINGS: Real-time, high resolution targeted ultrasound was performed of the area of the lumpectomy bed in the right 9:00 breast, at the site of prior pain which has now resolved. Ill-defined hypoechoic regions are seen at the surgical bed, consistent with expected postsurgical changes. No fluid collection is seen at the surgical bed to suggest postsurgical seroma/hematoma or abscess. No suspicious solid ma sses evident. The exam is slightly suboptimal as the patient was strapped to a gurney and could not a ngle into decubitus positioning for the exam. IMPRESSION: ACR BI-RADS CATEGORY 2: BENIGN Expected postsurgical changes in the right 9:00 breast at the lumpectomy bed, with no sonographic reggie dence of malignancy. Recommend clinical follow-up for right breast pain which has now resolved. The patient was verbally notified of the results. Miranda Thapa M.D. /:01/25/2017 10:29:54 Kindergartner: Miranda Thapa MD, [facility] letter sent: Normal 1/2 BI-RADS Code: ACR BI-RADS Category 2: Benign
== END | disposition home or self-care (01) ==
LOC: C.MAMM 09:54
PROVIDERS: ATTEND Internal Medicine Hematology & Oncology
DX: N64.4 Mastodynia (principal); Z85.3 Personal history of malignant neoplasm of breast

== ENCOUNTER 2017-03-11 00:14 | Inpatient (IN) | payer OTHER ==
[2017-03-11] VITALS (10 sets, daily range): BP systolic 100–162; BP diastolic 65–130; PULSE 107–132; TEMP 36.4–36.9; O2SAT 94–97; Ht 172.7 cm; Wt 98.1 kg
[~2017-03-11] VITALS: Ht 172.7 cm; Wt 98.1 kg
[~2017-03-11 00:14] MED LIST changes: -PROB1CAP54; +PROB1CAP54 PO
[2017-03-11 01:11] LABS: BASO % 0.5 %; BASO ABS # 0.05 K/uL (0-0.2); EOS % 0.6 %; EOS ABS # 0.06 K/uL (0-0.5); HEMATOCRIT 41.5 % (37-47); HEMOGLOBIN 13.7 g/dL (12.0-16.0); IG# 0.04 K/uL (0.00-0.02); LYMPH % 9.6 %; LYMPH ABS # 0.96 K/uL (1.2-3.4); MEAN CELL VOLUME 88.7 fL (80-100); MEAN CORPUSCULAR HEMOGLOBIN 29.3 pg (25-34); MEAN PLATELET VOLUME 10.7 fL (7.4-10.4); MONO % 9.2 %; MONO ABS # 0.92 K/uL (0.11-0.59); NEUT % 79.7 %; NEUT ABS # 8.02 K/uL (1.4-6.5); PLATELET COUNT 211 K/uL (130-400); RED CELL DISTRIBUTION WIDTH CV 14.8 % (11.5-14.5); RED CELL DISTRIBUTION WIDTH SD 47.8 fL (36.4-46.3); WHITE BLOOD COUNT 10.05 K/uL (4.8-10.8)
[2017-03-11 01:43] LABS: ALBUMIN 3.4 gm/dl (3.4-5.0); ALT/SGPT 33 U/L (12-78); AST/SGOT 24 U/L (15-37); BLOOD UREA NITROGEN 21 mg/dl (7-18); CALCIUM 9.3 mg/dl (8.5-10.1); CARBON DIOXIDE 24 mmol/L (21-32); CREATININE 1.14 mg/dl (0.60-1.20); GLUCOSE 448 mg/dl (70-99); POTASSIUM 3.6 mmol/L (3.5-5.1); SODIUM 129 mmol/L (136-145)
[2017-03-11 01:47] LABS: ALKALINE PHOSPHATASE 245 U/L (45-117)
[2017-03-11] MEDS ORDERED: SODIUM CHLORIDE 0.9% 1000ML 1,000 ML IV STA (02:23)
[2017-03-11] MEDS ORDERED: MORP30TA PO (02:24)
[2017-03-11] MEDS ORDERED: UMEC1AER INH (02:30)
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
[2017-03-11] MEDS ORDERED: SENN1TAB65 PO (02:36)
[2017-03-11] MEDS ORDERED: CARB1GEL14 OPB (02:38)
[2017-03-11] MEDS ORDERED: DIVA250T PO (02:41)
[2017-03-11] MEDS ORDERED: INSULIN IV INFUSION PROTOCOL STA (02:49)
[2017-03-11] MEDS ORDERED: ARTISOL12 OPB ×2 (02:50)
[2017-03-11] MEDS ORDERED: MOUTLIQ83 PO ×2 (02:51→02:52)
[2017-03-11] MEDS ORDERED: [UNRECOGNIZED DRUG - CODE] TOP (02:54)
[2017-03-11] MEDS ORDERED: ACETAMINOPHEN 325 MG TAB PO PRN ×2 (03:00→03:30)
[2017-03-11] MEDS ORDERED: DKA GOAL RANGE 150-250 mg/dl 1 EA ONE (03:00)
[2017-03-11] MEDS ORDERED: ONDANSETRON 4 MG TAB PO PRN (03:00)
[2017-03-11] MEDS ORDERED: DIMETHICONE TOP PRN (03:00)
[2017-03-11] MEDS ORDERED: ARTIFICIAL TEAR OPB PRN (03:00)
[2017-03-11] MEDS ORDERED: [UNRECOGNIZED DRUG - OTHER] TOP PRN (03:00)
[2017-03-11] MEDS ORDERED: PENDING NSS+20mEq KCL IVF SCH (03:00)
[2017-03-11] MEDS ORDERED: MODERATE STRESS LEVEL ONE (03:00)
[2017-03-11] MEDS ORDERED: DC ALL PREVIOUSLY ORDERED DIABETES MEDS ONE (03:00)
[2017-03-11] MEDS ORDERED: DICLOFENAC SOD 25 MG TABEC PO PRN (03:00)
[2017-03-11] MEDS ORDERED: [UNRECOGNIZED DRUG - OTHER] PO PRN (03:00)
[2017-03-11] MEDS ORDERED: ALBUTEROL 0.083% NEBU SOLN 3 ML VIAL INH PRN (03:00)
[2017-03-11] MEDS ORDERED: PETROLATUM TOP PRN (03:00)
[2017-03-11] MEDS ORDERED: LORAZEPAM 2 MG/ML 1 ML VIAL IV STA ×3 (03:25→03:53)
[2017-03-11] MEDS ORDERED: ALUMINUM/MAGNESIUM/SIMETH (MAALOX MAX) 30 ML UDC PO PRN (03:30)
[2017-03-11] MEDS ORDERED: MAGNESIUM HYDROXIDE SUSP 30 ML UDC PO PRN (03:30)
[2017-03-11] MEDS ORDERED: ONDANSETRON INJ 2 MG/ML 2 ML VIAL IV PRN (03:30)
[2017-03-11] MEDS ORDERED: OLANZAPINE ZYDIS 5 MG ORALLY DIS. TAB PO STA (03:33)
--- NOTE | 2017-03-11 03:41 | History and Physical ---
History & Physical Date & Time of Service: Mar 11, 2017 at 03:30 Chief Complaint: Urinary Symptoms Primary Care Physician: Cy Boyle M.D. History of Present Illness Source: clinic records, hospital records This is a 71 yo f with a h/o breast ca, multiple sclerosis, chronic pain and bipolar disorder that is presenting to us with acute change in mental status over the past 24 hours. The patient has been apparently having a lot of erratic behavior and includes trying to create a "shank" from her mirror. She has fallen out of bed as well apparently. She was brought via EMS for evaluation. On exam of the patient she is oriented x 3 but very agitated and is refusing all medications and treatments. Patient is not cooperative. The patient states that " I worked in [place] and helped create the patient bills of rights. I refuse you now get the hell out." When discussing the insulin for her hyperglycemia " I'm not diabetic, i'm hypoglycemic I don't need these medications, I refuse." She is also apparently extremely suspicious of staff here and at the SNF. She c/o of left leg pain however you are unable to look or assess the leg as the patient refuses. Past Medical/Surgical History Medical Problems: (1) Chronic urinary tract infection Status: Chronic (2) Diabetes mellitus Status: Chronic (3) fibromyalgia Status: Chronic (4) Herniated disc Status: Chronic (5) Hypothyroidism Status: Chronic (6) Multiple sclerosis Status: Chronic Family History No pertinent family history Social History Smoking Status: Never Smoker Marital Status: Occupational Status: retired Immunizations History of Influenza Vaccine: N/A Influenza Vaccine Date: Dec 08, 2011 History of Tetanus Vaccine?: Unknown Tetanus Immunization Date: May 07, 2010 History of Pneumococcal: Unknown Pneumococcal Date: May 07, 2010 History of Hepatitis B Vaccine: Unknown Multi-Drug Resistant Organisms History of MDRO: Yes Type of MDRO: MRSA Allergies Coded Allergies: Adhesives (Verified Allergy, Unknown, unknown, 07/02/16) Amitriptyline (Verified Allergy, Unknown, unknown, 03/11/17) Amoxicillin (Verified Allergy, Unknown, unknown, 03/11/17) Baclofen (Verified Allergy, Unknown, unknown, 03/11/17) Benzalkonium Chloride (Verified Allergy, Unknown, UNKNOWN, 07/02/16) Benzocaine (Verified Allergy, Unknown, UNKNOWN, 07/02/16) Erythromycin (Verified Allergy, Unknown, unknown, 03/11/17) Isoflurane (Verified Allergy, Unknown, unknown, 03/11/17) Lanolin (Verified Allergy, Unknown, unknown, 03/11/17) Latex (Verified Allergy, Unknown, unknown, 03/11/17) Nitrofurantoin (Verified Allergy, Unknown, unknown, 03/11/17) Oxycodone (Verified Allergy, Unknown, unknown, 03/11/17) PATIENT TOLERATES MORPHINE Penicillins (Verified Allergy, Unknown, unknown, 03/11/17) Procaine (Verified Allergy, Unknown, unknown, 03/11/17) Promethazine (Verified Allergy, Unknown, unknown, 03/11/17) Propoxyphene (Verified Allergy, Unknown, unknown, 07/02/16) Sulfa Antibiotics (Verified Allergy, Unknown, CAN TAKE LASIX, 03/11/17) Sulfamethoxazole w/Trimethoprim (Verified Allergy, Unknown, unknown, ) Zinc (Verified Allergy, Unknown, UNKNOWN, 07/02/16) Prednisone (Verified Adverse Reaction, Unknown, UNKNOWN, 07/02/16) Home Medications Scheduled Artificial Tear Solution (Artificial Tears), 1 DROPS OPB DAILY Aspirin (Aspirin Chewable), 81 MG PO QAM Carboxymethylcellulose-Glyceri (Refresh Optive 1-0.9 %), 1 DROP OPB BID Cyanocobalamin (Vitamin B-12), 1,000 MCG PO DAILY Divalproex Sodium (Depakote Er), 250 MG PO DAILY Duloxetine HCl (Cymbalta), 30 MG PO QAM Famotidine (Pepcid), 20 MG PO BID Furosemide (Lasix), 20 MG PO QAM Insulin Detemir (Levemir), 90 UNITS SC QPM Insulin Lispro (Humalog), 1 DOSE SC ACHS Insulin Lispro (Human) (Humalog), 20 UNITS SC AC Levothyroxine Sodium (Levothyroxine Sodium), 50 MCG PO QAM Linaclotide (Linzess), 145 MCG PO QAM Lubiprostone (Amitiza), 24 MCG PO BID Metformin Hcl (Glucophage), 500 MG PO BIDM Metoprolol Succ (Toprol Xl) (Toprol-Xl), 50 MG PO BID Morphine Sulfate (Morphine Sulfate Er), 30 MG PO Q8H Morphine Sulfate (Morphine Sulfate Er), 60 MG PO Q8H Mouthwashes (Biotene Dry Mouth Oral Ri), 1 SPRAY PO TID Potassium Chloride (Micro-K Ext Rel), 2 TAB PO QAM Probiotic Product (Acidophilus), 1 CAP PO HS Saline ([place] Nasal [place]), 1 SPRAY LITA BID Sennosides-Docusate Sodium (Senna Plus), 4 TABS PO TID Simvastatin (Zocor), 40 MG PO QPM Umeclidinium-Vilanterol (Anoro Ellipta 62.5-25 Mcg/INH), 1 PUFF INH DAILY Venlafaxine Hcl (Venlafaxine Hcl Er), 1 TAB PO QAM Scheduled PRN Acetaminophen Tab (Tylenol), 650 MG PO Q12 PRN for Pain or Fever Albuterol Sulf (Proventil 0.083% 2.5MG/3ML), 2.5 MG INH Q4H PRN for SOB/Wheezing Artificial Tear Solution (Artificial Tears), 1 DROPS OPB Q8 PRN for DRYNESS Diclofenac (Voltaren), 50 MG PO Q8H PRN for HEADACHE Dimethicone-Petrolatum ([place] Ultimate Diabet 3-30 %), 1 AU TOP TID PRN for DRY SKIN Morphine Sulfate Ir (Morphine Sulfate Ir), 30 MG PO Q6 PRN for Pain Mouthwashes (Biotene Dry Mouth Oral Ri), 1 SPRAY PO Q4 PRN for dry mouth Ondansetron Hcl (Zofran), 4 MG PO Q8H PRN for Nausea Tramadol (Ultram), 50 MG PO Q6 PRN for Pain Review of Systems Unable to obtain full ROS as patient uncooperative Physical Exam Vital Signs Date Time Temp Pulse Resp B/P (MAP) Pulse Ox O2 Delivery O2 Flow Rate FiO2 03/11/17 02:58 117 20 162/124 94 Room Air 03/11/17 00:32 36.8 120 22 163/124 96 Room Air General Appearance: + pertinent finding (agitated) Head: normocephalic, atraumatic Eyes: normal inspection ENT: + pertinent finding (adentulous) Neck: supple Respiratory/Chest: normal breath sounds, no respiratory distress, no accessory muscle use Cardiovascular: no murmur, + tachycardia Abdomen/GI: normal bowel sounds, non tender, + distended Back: + pertinent finding (unable to inspect due to refusal) Extremities/Musculoskelatal: + pertinent finding (pedal edema bilat with venous changes, unable to assess due to refusal as left leg "painful") Neurologic/Psych: alert, + pertinent finding (agitated, screaming) Skin: normal color, warm/dry, no rash Lymphatic: no adenopathy Diagnostics Laboratory Results Results Past 24 Hours Test 03/11/17 00:54 03/11/17 03:18 Range/Units White Blood Count 10.05 4.8-10.8 K/uL Red Blood Count 4.68 4.2-5.4 M/uL Hemoglobin 13.7 12.0-16.0 g/dL Hematocrit 41.5 37-47 % Mean Corpuscular Volume 88.7 80-100 fL Mean Corpuscular Hemoglobin 29.3 25-34 pg Mean Corpuscular Hemoglobin Concent 33.0 32-36 g/dl Platelet Count 211 130-400 K/uL Mean Platelet Volume 10.7 7.4-10.4 fL Neutrophils (%) (Auto) 79.7 % Lymphocytes (%) (Auto) 9.6 % Monocytes (%) (Auto) 9.2 % Eosinophils (%) (Auto) 0.6 % Basophils (%) (Auto) 0.5 % Neutrophils # (Auto) 8.02 1.4-6.5 K/uL Lymphocytes # (Auto) 0.96 1.2-3.4 K/uL Monocytes # (Auto) 0.92 0.11-0.59 K/uL Eosinophils # (Auto) 0.06 0-0.5 K/uL Basophils # (Auto) 0.05 0-0.2 K/uL RDW Standard Deviation 47.8 36.4-46.3 fL RDW Coefficient of Variation 14.8 11.5-14.5 % Immature Granulocyte % (Auto) 0.4 % Immature Granulocyte # (Auto) 0.04 0.00-0.02 K/uL Sodium Level 129 136-145 mmol/L Potassium Level 3.6 3.5-5.1 mmol/L Chloride Level 94 98-107 mmol/L Carbon Dioxide Level 24 21-32 mmol/L Anion Gap 11.0 3-11 mmol/L Blood Urea Nitrogen 21 7-18 mg/dl Creatinine 1.14 0.60-1.20 mg/dl Estimated GFR () 56.4 Estimated GFR (Non- 48.7 BUN/Creatinine Ratio 18.0 10-20 Random Glucose 448 70-99 mg/dl Calcium Level 9.3 8.5-10.1 mg/dl Total Bilirubin 0.5 0.2-1 mg/dl Direct Bilirubin 0.1 0-0.2 mg/dl Aspartate Amino Transf (AST/SGOT) 24 15-37 U/L Alanine Aminotransferase (ALT/SGPT) 33 12-78 U/L Alkaline Phosphatase 245 45-117 U/L Total Protein 7.0 6.4-8.2 gm/dl Albumin 3.4 3.4-5.0 gm/dl Beta-Hydroxybutyric Acid 15.98 0.2-2.81 mg/dL Thyroid Stimulating Hormone (TSH) 1.410 0.300-4.500 uIu/ml Salicylates Level < 1.7 2.8-20 mg/dl Acetaminophen Level < 2 10-30 ug/ml Ethyl Alcohol mg/dL < 3.0 0-3 mg/dl Diagnostic Radiology CT no overt bleeding appreciated knee xray - mild osteoarthritic changes noted on patella, no fracture appreciated EKG not completed in ED Impression Assessment and Plan This is a 71 yo f with bipolar disorder most likely suffering from an acute manic episode. Patient was extremely non cooperative/ combative despite discussing the case with her, verbally abusive to staff. Patient was deemed a danger to self as she is currently acutely psychotic and refusing life saving treatments/ evaluation. Patient was chemically restrained with 2.5 mg of IV Ativan and 10 mg of IM geodon as well as physically restrained in soft limb. Patient required security in the room during this procedure. Acute psychosis/ jun possibly secondary to medication non compliance, need for medication augmentation, infection of unknown source, hyperglycemia - Tele admission - chemical/ physical restraints for reasons noted above - Depakote level - psych consult - KUB and pelvic/hip xray ( c/o left hip pain) - Ativan/ Geodon IM for chemical restraints - depakote level, cont depakote ER 250 mg daily, reassess dose with level - Hold Cymbalta and Venlafaxine overnight until seen by psych - ekg - RPR Hyperglycemia without overt DKA/ HHS - insulin infusion - NSS with 20 K @ 150cc/h, received 1 L of NSS in ED at 250 cc/h - repeat labs per protocol - no AG noted - metformin held as well as home insulin - HBA1c level Hyperlipidemia Zocor 40 mg cont HTN/ PAF /CAD - Cont Toprol 50 mg daily - ASA 81 mg Breast Cancer, Ductal carcinoma I, 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 sorto during the history and exam. I discussed the case with the resident and agree with the findings and plan as documented in the note. Any exceptions or clarifications are listed here: 71 y/o F Hx breast ca, multiple sclerosis, chronic pain, bipolar disorder, DM - presenting from nursing facility where she is reported to have developed acute psychosis with severe paranoia. The pt fashioned a shank from a glass shard and continuously stated that she was being poisoned by the care staff. There were no reported fevers. She may have initially complained of dysuria and has had L leg pain since that time. She is unable to provide any objective history and was refusing any treatment or diagnostic workup at the time of admission. OE AAO - tangential and agitated S1,2 R CTAB NT, ND No CCE L leg painful to palpation - appeared rotated although she is able to lift off bed P: Acute psychosis - unclear cause - she is listed as bipolar - per nursing staff she has not had such episodes in the past. We will complete a medical workup and a UA - unfortunately we will need to sedate the pt prior as she is refusing any treatment and is highly agitated She is markedly hyperglycemic and will be placed on an insulin drip initially A UA is pending as is a Depakote level. An MRI with contrast should be considered. We are waiting for imaging of her L hip. She will likely require additional input from mental health when medically cleared. She is currently at risk of self harm due to medical noncompliance and her underlying conditions Above discussed with resident and ER attending Level of Care Telemetry Resuscitation Status DO NOT RESUSCITATE VTE Prophylaxis VTE Risk Assessment Done? Y/N: Yes Risk Level: Moderate Given or contraindicated: Unfractionated heparin SQ, SCD's Social Service Consult Lives in [facility] Note Total Time: Critical Care 30 - 74 minutes Additional Copies To Cy Boyle M.D.
[2017-03-11] MEDS ORDERED: ZIPRASIDONE 20 MG/ML SDV IM STA (03:56)
[2017-03-11 04:05] LABS: BLOOD UREA NITROGEN 20 mg/dl (7-18); CALCIUM 9.3 mg/dl (8.5-10.1); CARBON DIOXIDE 27 mmol/L (21-32); CREATININE 1.09 mg/dl (0.60-1.20); GLUCOSE 444 mg/dl (70-99); PHOSPHORUS 2.9 mg/dl (2.5-4.9); POTASSIUM 3.7 mmol/L (3.5-5.1); SODIUM 131 mmol/L (136-145)
[2017-03-11] MEDS ORDERED: GLUCOSE 10 TABS/TUBE PO PRN (05:00)
[2017-03-11] MEDS ORDERED: DEXTROSE 50% 50 ML SYR IV PRN (05:00)
[2017-03-11] MEDS ORDERED: GLUCOSE 40% GEL 15 GM TUBE PO PRN (05:00)
[2017-03-11] MEDS ORDERED: GLUCAGON FOR INJ 1 MG VIAL SQ PRN (05:00)
[2017-03-11] MEDS ORDERED: NovoLIN R BOLUS FROM BAG IV ONE (05:00)
[2017-03-11] MEDS: INSULIN REGULAR 250 UNITS in SODIUM CHLORIDE 0.9% 250ML 250 ML IV SCH ×2 (05:18→07:12)
[2017-03-11] MEDS: MoRPHine SULFATE CR 60 MG TAB (MS CONTIN) PO SCH ×3 (06:00→22:00)
[2017-03-11] MEDS: MoRPHine SULFATE CR 15 MG TAB (MS CONTIN) PO SCH ×3 (06:00→22:00)
[2017-03-11] MEDS: NSS + 20MEQ KCL 1000ML 1,000 ML IV SCH ×3 (06:38→22:20)
[2017-03-11] MEDS: LEVOTHYROXINE 50 MCG TAB PO SCH (07:00)
--- NOTE | 2017-03-11 07:03 | DIAGNOSTIC IMAGING REPORT ---
CT OF THE HEAD WITHOUT CONTRAST CLINICAL HISTORY: acute paranoia; h/o breast CA COMPARISON STUDY: Head CT December 04, 2013. CT DOSE: 614.27 mGy.cm TECHNIQUE: Helical axial images of the head were obtained without IV contrast. Automated exposure control was utilized for the study. A dose lowering technique was utilized adhering to the principles of ALARA. FINDINGS: No acute intracranial hemorrhage, midline shift or mass effect is present. Ventricular system is stable. Basilar cisterns are patent. There are no extra-axial collections. White matter hypodensity suggests small vessel disease. There are no findings to suggest acute dural sinus thrombosis or acute territorial infarct. There are no significant calvarial abnormalities. Visualized portions of the sinuses and mastoid air cells are clear. IMPRESSION: No acute intracranial findings. No significant change since previous exam. Electronically signed by: Rojelio Bill M.D. 03/11/2017 7:02 AM Dictated Date/Time: 03/11/2017 7:00 AM
--- NOTE | 2017-03-11 07:16 | DIAGNOSTIC IMAGING REPORT ---
LEFT KNEE 2 VIEWS HISTORY: left knee pain COMPARISON: None. FINDINGS: There is no fracture or dislocation. Soft tissues are unremarkable. The bones are osteopenic. No significant knee effusion. Mild tricompartmental osteoarthritis. IMPRESSION: No fractures. Electronically signed by: Morgan Kelly M.D. 03/11/2017 7:14 AM Dictated Date/Time: 03/11/2017 7:12 AM
[2017-03-11 07:51] LABS: PTT PATIENT 23.1 SECONDS (21.0-31.0)
[2017-03-11] MEDS: ANORO ELLIPTA~ORDER AWAITING ACTION SCH ×2 (08:00→14:30)
[2017-03-11] MEDS ORDERED: INSULIN ASPART 100 UNITS/ML 3 ML PEN SC SCH (08:00)
[2017-03-11 08:04] LABS: HEMOGLOBIN A1C 8.1 % (4.5-5.6)
[2017-03-11 08:16] LABS: CALCIUM 9.2 mg/dl (8.5-10.1); CREATININE 0.87 mg/dl (0.60-1.20); POTASSIUM 3.4 mmol/L (3.5-5.1)
[2017-03-11 08:17] LABS: PHOSPHORUS 2.8 mg/dl (2.5-4.9)
[2017-03-11] MEDS ORDERED: PNEUMOCOCCAL POLYSACCHARIDES 25 MCG/0.5 ML VIAL/SYR IM. ONE (08:30)
[2017-03-11] MEDS ORDERED: INFLUENZA ADMINISTRATION CHARGE ONE ×2 (08:30→08:45)
[2017-03-11] MEDS ORDERED: PNEUMOCOCCAL ADMINISTRATION CHARGE ONE (08:30)
[2017-03-11] MEDS ORDERED: INFLUENZA VIRUS QUAD VACCINE 0.5 ML SYR IM. ONE (08:30)
[2017-03-11] MEDS ORDERED: INFLUENZA VACCINE HIGH DOSE 65+ 0.5 ML SYR IM. ONE (08:45)
[2017-03-11] MEDS: METOPROLOL SUCC 50MG EXT REL TAB PO SCH ×2 (09:00→21:00)
[2017-03-11] MEDS ORDERED: METOPROLOL TARTRATE 1 MG/ML VIAL IV PRN (09:00)
[2017-03-11] MEDS ORDERED: DIVALPROEX 250 MG EXTENDED REL TAB PO SCH (09:00)
[2017-03-11] MEDS ORDERED: CARBOXYMETHYLCELLULOSE GLYCERI OPB SCH (09:00)
[2017-03-11] MEDS ORDERED: [UNRECOGNIZED DRUG - OTHER] PO SCH (09:00)
[2017-03-11] MEDS: FUROSEMIDE 20 MG TAB PO SCH (09:00)
[2017-03-11] MEDS: SODIUM CHLORIDE 0.65% NA SOLN 45 ML (OCEAN) NAE SCH ×2 (09:00→21:00)
[2017-03-11] MEDS: POTASSIUM CHLORIDE 10 MEQ TABCR PO SCH (09:00)
[2017-03-11] MEDS: ASPIRIN 81 MG ECTAB PO SCH (09:00)
[2017-03-11] MEDS ORDERED: ARTIFICIAL TEAR OPB SCH (09:00)
[2017-03-11] MEDS: FAMOTIDINE 20 MG TAB PO SCH ×2 (09:00→21:00)
[2017-03-11] MEDS: DOCUSATE SODIUM/SENNA 50/8.6MG TAB PO SCH ×3 (09:00→21:00)
[2017-03-11] MEDS ORDERED: VENLAFAXINE HCL XR 150 MG CAPXR PO SCH (09:00)
[2017-03-11] MEDS ORDERED: DULOXETINE (CYMBALTA) 30 MG CAP PO SCH (09:00)
[2017-03-11] MEDS: CYANOCOBALAMIN 500 MCG TAB (VIT B-12) PO SCH (09:00)
[2017-03-11] MEDS: LUBIPROSTONE 8 MCG CAP PO SCH ×2 (09:00→21:00)
[2017-03-11] MEDS: POLYETHYLENE (MIRALAX) 17 GM PACK PO SCH (09:00)
[2017-03-11] MEDS: VALPROATE SOD IV 250 MG in DEXTROSE 5% 50ML 50 ML IV SCH (09:32)
[2017-03-11] MEDS: HEPARIN SOD 5000 UNIT/0.5 ML CARP SQ SCH ×2 (09:34→21:46)
[2017-03-11] MEDS: INSULIN GLARGINE SOLOSTAR 100 UNITS/ML 3 ML PEN SC SCH ×2 (09:34→21:41)
[2017-03-11] MEDS: POTASSIUM CHLR 10 MEQ / WTR 10 MEQ in PREMIXED WATER 100 ML IV SCH ×3 (10:49→13:45)
--- NOTE | 2017-03-11 12:08 | DIAGNOSTIC IMAGING REPORT ---
SINGLE VIEW PELVIS; SINGLE VIEW LEFT HIP CLINICAL HISTORY: Left leg pain. FINDINGS: An AP view of the pelvis and an AP view of the left hip are compared to study dated 08/21/2012. The skeletal structures are osteopenic. No acute fracture is seen. A right hip arthroplasty is in near-anatomic alignment. Advanced arthritic change and chronic deformity is present in the left hip. There is near complete loss of the joint space, and this has progressed from 2012. The sacroiliac joints are normal in appearance. The overlying soft tissues are within normal limits. There is no evidence of bowel obstruction. IMPRESSION: 1. No acute bony abnormality is seen involving the hips or pelvis. 2. Osteopenia with advanced degenerative change and deformity of the left hip. This has progressed from 2012. Electronically signed by: Franklin Costa M.D. 03/11/2017 12:07 PM Dictated Date/Time: 03/11/2017 12:05 PM
--- NOTE | 2017-03-11 12:12 | DIAGNOSTIC IMAGING REPORT ---
KUB CLINICAL HISTORY: Abdominal distention. COMPARISON STUDY: CT of the abdomen and pelvis December 31, 2016. FINDINGS: Right hip arthroplasty is noted. There are severe osteophytosis of the left hip. There is a moderate amount of stool within the colon and large amount stool within the rectum. Bowel gas pattern is normal. IMPRESSION: 1. No evidence for a bowel obstruction. 2. Moderate to large amount of stool within the colon and rectum. Electronically signed by: Rojelio Bill M.D. 03/11/2017 12:11 PM Dictated Date/Time: 03/11/2017 12:03 PM
[2017-03-11] MEDS: INSULIN ASPART 100 UNITS/ML 3 ML PEN SC SCH ×3 (12:20→21:42)
--- NOTE | 2017-03-11 12:39 | Psychiatric Consultation ---
Consultation Date of Consultation Mar 11, 2017. Identifying Data 71-year-old female who currently resides at [facility], admitted medically with altered mental status, agitation. We are consulted for medication management for diagnosis of bipolar disorder. Information is gathered from the electronic medical record, the nurse at [facility]. The patient is not able to be interviewed at this time. Chief Complaint Not arousable. Consult requested to manage agitation in the setting of bipolar disorder History of Present Illness The patient is a 71-year-old woman who currently resides at [facility] in [place]. Per the records, she is diagnosed with bipolar disorder and has had increasingly agitated behaviors over at least the last 2 months. Per the nurse, Amanda, at [facility], the patient has refused all but her pain medications in the last 2 months or so. She has been increasingly difficult to manage with erratic behaviors most recently having made a shank out of the near. Attempts have been made to get her into see Dr. Villagran, the psychiatrist at [facility], however she has refused. Notes also indicate that she had thrown herself on the floor recently and on the day of admission, had fallen out of bed. At that time in the emergency room, she denied making a weapon out of a mirror, denied suicidal or homicidal thinking. She complained of left knee pain saying she was unable to walk. She did voice delusions that the long-term is secretly poisoning her which she reported in whispered tones to the emergency room physician. At the time of admission, the patient's blood sugar was almost 500. She was placed on insulins drip. In terms of psychiatric medications, the patient has received one dose of IV Depakote 250 mg this morning. She received 10 mg of Geodon IM at 0400 this morning, and a total of 2.5 mg of Ativan IV as well. Blood pressure remains elevated 162/130, pulse 107, afebrile. No urine specimen yet obtained for UA and culture but urine smell in the room is strong. At the time and to the room she is lying on her back, x-ray has just attempted a steady. She has soft limb restraints on. She will not rouse to verbal or tactile. She does not appear to be in distress, although mildly flushed. Past Psychiatric History Current OP Treatment: no current treatment Prior OP Treatment: psychiatrist (assumed, based on diagnosis) Access to a Gun: No Past Medical/Surgical History (1) Diabetes mellitus (2) Multiple sclerosis (3) fibromyalgia (4) Hypothyroidism (5) Herniated disc (6) Breast cancer (7) Atrial fibrillation (8) Hypertension (9) Dyslipidemia (10) GERD (gastroesophageal reflux disease) (11) Hx of TIA (transient ischemic attack) and stroke (12) COPD (chronic obstructive pulmonary disease) Allergies Allergies: Coded Allergies: Adhesives (Verified Allergy, Unknown, unknown, 07/02/16) Amitriptyline (Verified Allergy, Unknown, unknown, 03/11/17) Amoxicillin (Verified Allergy, Unknown, unknown, 03/11/17) Baclofen (Verified Allergy, Unknown, unknown, 03/11/17) Benzalkonium Chloride (Verified Allergy, Unknown, UNKNOWN, 07/02/16) Benzocaine (Verified Allergy, Unknown, UNKNOWN, 07/02/16) Erythromycin (Verified Allergy, Unknown, unknown, 03/11/17) Isoflurane (Verified Allergy, Unknown, unknown, 03/11/17) Lanolin (Verified Allergy, Unknown, unknown, 03/11/17) Latex (Verified Allergy, Unknown, unknown, 03/11/17) Nitrofurantoin (Verified Allergy, Unknown, unknown, 03/11/17) Oxycodone (Verified Allergy, Unknown, unknown, 03/11/17) PATIENT TOLERATES MORPHINE Penicillins (Verified Allergy, Unknown, unknown, 03/11/17) Procaine (Verified Allergy, Unknown, unknown, 03/11/17) Promethazine (Verified Allergy, Unknown, unknown, 03/11/17) Propoxyphene (Verified Allergy, Unknown, unknown, 07/02/16) Sulfa Antibiotics (Verified Allergy, Unknown, CAN TAKE LASIX, 03/11/17) Sulfamethoxazole w/Trimethoprim (Verified Allergy, Unknown, unknown, ) Zinc (Verified Allergy, Unknown, UNKNOWN, 07/02/16) Prednisone (Verified Adverse Reaction, Unknown, UNKNOWN, 07/02/16) Home Medications Scheduled Artificial Tear Solution (Artificial Tears), 1 DROPS OPB DAILY Aspirin (Aspirin Chewable), 81 MG PO QAM Carboxymethylcellulose-Glyceri (Refresh Optive 1-0.9 %), 1 DROP OPB BID Cyanocobalamin (Vitamin B-12), 1,000 MCG PO DAILY Divalproex Sodium (Depakote Er), 250 MG PO DAILY Duloxetine HCl (Cymbalta), 30 MG PO QAM Famotidine (Pepcid), 20 MG PO BID Furosemide (Lasix), 20 MG PO QAM Insulin Detemir (Levemir), 90 UNITS SC QPM Insulin Lispro (Humalog), 1 DOSE SC ACHS Insulin Lispro (Human) (Humalog), 20 UNITS SC AC Levothyroxine Sodium (Levothyroxine Sodium), 50 MCG PO QAM Linaclotide (Linzess), 145 MCG PO QAM Lubiprostone (Amitiza), 24 MCG PO BID Metformin Hcl (Glucophage), 500 MG PO BIDM Metoprolol Succ (Toprol Xl) (Toprol-Xl), 50 MG PO BID Morphine Sulfate (Morphine Sulfate Er), 30 MG PO Q8H Morphine Sulfate (Morphine Sulfate Er), 60 MG PO Q8H Mouthwashes (Biotene Dry Mouth Oral Ri), 1 SPRAY PO TID Potassium Chloride (Micro-K Ext Rel), 2 TAB PO QAM Probiotic Product (Acidophilus), 1 CAP PO HS Saline ([place] Nasal [place]), 1 SPRAY LITA BID Sennosides-Docusate Sodium (Senna Plus), 4 TABS PO TID Simvastatin (Zocor), 40 MG PO QPM Umeclidinium-Vilanterol (Anoro Ellipta 62.5-25 Mcg/INH), 1 PUFF INH DAILY Venlafaxine Hcl (Venlafaxine Hcl Er), 1 TAB PO QAM Scheduled PRN Acetaminophen Tab (Tylenol), 650 MG PO Q12 PRN for Pain or Fever Albuterol Sulf (Proventil 0.083% 2.5MG/3ML), 2.5 MG INH Q4H PRN for SOB/Wheezing Artificial Tear Solution (Artificial Tears), 1 DROPS OPB Q8 PRN for DRYNESS Diclofenac (Voltaren), 50 MG PO Q8H PRN for HEADACHE Dimethicone-Petrolatum (Gold [place] Ultimate Diabet 3-30 %), 1 AU TOP TID PRN for DRY SKIN Morphine Sulfate Ir (Morphine Sulfate Ir), 30 MG PO Q6 PRN for Pain Mouthwashes (Biotene Dry Mouth Oral Ri), 1 SPRAY PO Q4 PRN for dry mouth Ondansetron Hcl (Zofran), 4 MG PO Q8H PRN for Nausea Tramadol (Ultram), 50 MG PO Q6 PRN for Pain Family History No pertinent family history Unable to obtain due to patient condition Alcohol Use Alcohol Use In Past 12 Months: No Smoking Use Smoking Status: Never Smoker Personal History Lives in: [facility] Review of Systems Unable to obtain due to patient's condition Examination Vital Signs Vital Signs Past 12 Hours Date Time Temp Pulse Resp B/P (MAP) Pulse Ox O2 Delivery O2 Flow Rate FiO2 03/11/17 12:12 36.4 114 22 109/81 (90) 94 Room Air 03/11/17 12:03 97 Room Air 03/11/17 08:13 36.4 107 14 162/130 (141) 96 Room Air 03/11/17 08:01 97 Room Air 03/11/17 06:00 36.9 132 24 100/76 97 T-piece 03/11/17 05:22 107 18 145/79 95 03/11/17 05:00 108 20 134/71 95 Room Air 03/11/17 04:45 109 18 109/63 94 Room Air 03/11/17 04:30 116 18 134/68 91 Room Air 03/11/17 04:15 128 22 130/79 93 Room Air 03/11/17 04:11 130 03/11/17 04:10 136 24 156/76 92 Room Air 03/11/17 02:58 117 20 162/124 94 Room Air 03/11/17 00:32 36.8 120 22 163/124 96 Room Air Laboratory Results Last 24 Hours Test 03/11/17 00:54 03/11/17 02:45 03/11/17 04:43 03/11/17 06:01 White Blood Count 10.05 K/uL Red Blood Count 4.68 M/uL Hemoglobin 13.7 g/dL Hematocrit 41.5 % Mean Corpuscular Volume 88.7 fL Mean Corpuscular Hemoglobin 29.3 pg Mean Corpuscular Hemoglobin Concent 33.0 g/dl Platelet Count 211 K/uL Mean Platelet Volume 10.7 fL Neutrophils (%) (Auto) 79.7 % Lymphocytes (%) (Auto) 9.6 % Monocytes (%) (Auto) 9.2 % Eosinophils (%) (Auto) 0.6 % Basophils (%) (Auto) 0.5 % Neutrophils # (Auto) 8.02 K/uL Lymphocytes # (Auto) 0.96 K/uL Monocytes # (Auto) 0.92 K/uL Eosinophils # (Auto) 0.06 K/uL Basophils # (Auto) 0.05 K/uL RDW Standard Deviation 47.8 fL RDW Coefficient of Variation 14.8 % Immature Granulocyte % (Auto) 0.4 % Immature Granulocyte # (Auto) 0.04 K/uL Sodium Level 129 mmol/L 131 mmol/L Potassium Level 3.6 mmol/L 3.7 mmol/L Chloride Level 94 mmol/L 94 mmol/L Carbon Dioxide Level 24 mmol/L 27 mmol/L Anion Gap 11.0 mmol/L 10.0 mmol/L Blood Urea Nitrogen 21 mg/dl 20 mg/dl Creatinine 1.14 mg/dl 1.09 mg/dl Estimated GFR () 56.4 59.6 Estimated GFR (Non- 48.7 51.4 BUN/Creatinine Ratio 18.0 18.2 Random Glucose 448 mg/dl 444 mg/dl Calcium Level 9.3 mg/dl 9.3 mg/dl Total Bilirubin 0.5 mg/dl Direct Bilirubin 0.1 mg/dl Aspartate Amino Transf (AST/SGOT) 24 U/L Alanine Aminotransferase (ALT/SGPT) 33 U/L Alkaline Phosphatase 245 U/L Total Protein 7.0 gm/dl Albumin 3.4 gm/dl Beta-Hydroxybutyric Acid 15.98 mg/dL 14.80 mg/dL Thyroid Stimulating Hormone (TSH) 1.410 uIu/ml Salicylates Level < 1.7 mg/dl Acetaminophen Level < 2 ug/ml Ethyl Alcohol mg/dL < 3.0 mg/dl Estimated Average Glucose 186 mg/dl Hemoglobin A1c 8.1 % Phosphorus Level 2.9 mg/dl Magnesium Level 2.0 mg/dl Valproic Acid (Depakene) Level 4 mcg/ml Bedside Glucose 383 mg/dl 275 mg/dl Test 03/11/17 07:01 03/11/17 07:05 03/11/17 08:10 03/11/17 08:59 Bedside Glucose 233 mg/dl 216 mg/dl 267 mg/dl Prothrombin Time 10.6 SECONDS Prothromb Time International Ratio 1.0 Activated Partial Thromboplast Time 23.1 SECONDS Partial Thromboplastin Ratio 0.9 Sodium Level 135 mmol/L Potassium Level 3.4 mmol/L Chloride Level 99 mmol/L Carbon Dioxide Level 27 mmol/L Anion Gap 9.0 mmol/L Blood Urea Nitrogen 17 mg/dl Creatinine 0.87 mg/dl Est Creatinine Clear Calc Drug Dose 73.7 ml/min Estimated GFR () 78.2 Estimated GFR (Non- 67.5 BUN/Creatinine Ratio 19.8 Random Glucose 216 mg/dl Calcium Level 9.2 mg/dl Phosphorus Level 2.8 mg/dl Magnesium Level 2.0 mg/dl Test 03/11/17 11:49 03/11/17 12:10 Bedside Glucose 205 mg/dl Mental Examination During interview pt is: other (obtunded) Appearance: disheveled (and malodorous) Eye contact is: other (will not awaken) Motor behavior is: no abnormal motor movements Impression / Recommendations Impression 71-year-old resident of [facility] with reports of a history of bipolar disorder who has been noncompliant with psychiatric medications for at least 2 months, presents with altered mental status,? UTI. Apparently the patient must been agitated at 4:00 this morning and received IM Geodon, Ativan and is now receiving Depakote IV. Today she is too sedated to wake up. By the description, the patient sounds paranoid and in need of psychiatric treatment. I certainly agree with giving her a mood stabilizer IV, specifically Depakote, as this was ordered at [facility] for mood stabilization. If we can get her to take an antipsychotic once she awakens, I would suggest we use and orally dissolvable form of either Risperdal or Zyprexa for ease of administration. There is a report of chronic UTIs in her problem list and certainly her condition may be aggravated if she has a UTI. QTC on EKG is 466 ms currently. BP is elevated, and is tachycardic. Would like to see her medically stabilized before we begin an antipsychotic if possible, but behavior will dictate. We will continue to follow with you. Recommendations (1) bipolar disorder by history, with psychosis 03/11 - Agree with Depakote IV for now for mood stabilization - - Would like to see her medically stabilized before beginning an atypical antipsychotic as PT currently elevated and tachycardic - Is stable and willing would give an orally dissolving form of either Risperdal or Zyprexa to target her paranoia. - Inpatient mental health treatment may be necessary and we will continue to evaluate - Dr. Sarah Arriola is personally been involved in the review and development of these recommendations.
[2017-03-11 13:21] LABS: CALCIUM 9.1 mg/dl (8.5-10.1); CREATININE 0.74 mg/dl (0.60-1.20); PHOSPHORUS 2.8 mg/dl (2.5-4.9); POTASSIUM 4.1 mmol/L (3.5-5.1)
[2017-03-11 16:58] LABS: CALCIUM 8.8 mg/dl (8.5-10.1); CREATININE 0.73 mg/dl (0.60-1.20); PHOSPHORUS 2.4 mg/dl (2.5-4.9); POTASSIUM 4.2 mmol/L (3.5-5.1)
--- NOTE | 2017-03-11 19:08 | Progress Note ---
Progress Note Date of Service Mar 11, 2017. Progress Note pt seen ~9a in f/u of early am admission no HPI or ROS obtainable labs and w/u reviewed, later pelvis/hip films showed no fx vitals noted nad breathing unlabored no r/r/w HR reg no r/m/g probable acute psychosis - no clear medical cause - ?related to bipolar. was at risk - had to have chemical sedation as well await psych input
[2017-03-11 20:57] LABS: CALCIUM 8.9 mg/dl (8.5-10.1); CREATININE 0.77 mg/dl (0.60-1.20); POTASSIUM 4.1 mmol/L (3.5-5.1)
[2017-03-11] MEDS: SIMVASTATIN 40 MG TAB PO SCH (21:00)
[2017-03-11] MEDS ORDERED: PROBIOTIC PRODUCT PO SCH (21:00)
[2017-03-12] VITALS (11 sets, daily range): BP systolic 133–171; BP diastolic 70–95; PULSE 94–111; TEMP 36.6; O2SAT 91–98
[2017-03-12 00:12] LABS: CALCIUM 8.7 mg/dl (8.5-10.1); CREATININE 0.64 mg/dl (0.60-1.20); POTASSIUM 3.8 mmol/L (3.5-5.1)
[2017-03-12] MEDS: NSS + 20MEQ KCL 1000ML 1,000 ML IV SCH ×3 (05:59→22:13)
[2017-03-12] MEDS: LEVOTHYROXINE 50 MCG TAB PO SCH (06:00)
[2017-03-12] MEDS: MoRPHine SULFATE CR 60 MG TAB (MS CONTIN) PO SCH ×3 (06:00→21:59)
[2017-03-12] MEDS: MoRPHine SULFATE CR 15 MG TAB (MS CONTIN) PO SCH ×3 (06:00→21:59)
[2017-03-12] MEDS: ANORO ELLIPTA~ORDER AWAITING ACTION SCH ×4 (08:00→22:14)
[2017-03-12] MEDS: VALPROATE SOD IV 250 MG in DEXTROSE 5% 50ML 50 ML IV SCH (08:50)
[2017-03-12] MEDS: INSULIN ASPART 100 UNITS/ML 3 ML PEN SC SCH ×4 (08:55→21:00)
[2017-03-12] MEDS: INSULIN GLARGINE SOLOSTAR 100 UNITS/ML 3 ML PEN SC SCH ×2 (08:56→21:00)
[2017-03-12] MEDS: HEPARIN SOD 5000 UNIT/0.5 ML CARP SQ SCH ×2 (08:58→20:39)
[2017-03-12] MEDS: CYANOCOBALAMIN 500 MCG TAB (VIT B-12) PO SCH (09:00)
[2017-03-12] MEDS: POLYETHYLENE (MIRALAX) 17 GM PACK PO SCH (09:00)
[2017-03-12] MEDS: POTASSIUM CHLORIDE 10 MEQ TABCR PO SCH (09:00)
[2017-03-12] MEDS: FUROSEMIDE 20 MG TAB PO SCH (09:00)
[2017-03-12] MEDS: METOPROLOL SUCC 50MG EXT REL TAB PO SCH ×2 (09:00→20:38)
[2017-03-12] MEDS: LUBIPROSTONE 8 MCG CAP PO SCH ×2 (09:00→20:38)
[2017-03-12] MEDS: FAMOTIDINE 20 MG TAB PO SCH ×2 (09:00→20:38)
[2017-03-12] MEDS: ASPIRIN 81 MG ECTAB PO SCH (09:00)
[2017-03-12] MEDS: DOCUSATE SODIUM/SENNA 50/8.6MG TAB PO SCH ×3 (09:00→20:38)
[2017-03-12] MEDS: SODIUM CHLORIDE 0.65% NA SOLN 45 ML (OCEAN) NAE SCH ×2 (09:00→20:38)
[2017-03-12] MEDS ORDERED: HALOPERIDOL LACTATE 5 MG/ML 1 ML VIAL IM STA ×2 (11:33→21:38)
--- NOTE | 2017-03-12 13:01 | DIAGNOSTIC IMAGING REPORT ---
LEFT HIP CT CT DOSE: 673.82 mGycm HISTORY: Left hip pain with movement, ?occult fracture TECHNIQUE: Multiaxial CT images of the left hip were performed and reformatted in the sagittal and coronal plane without the use of contrast. A dose lowering technique was utilized adhering to the principles of ALARA. COMPARISON: Left hip 03/11/2017. FINDINGS: No acute fracture dislocation within the left hip. The visualized pelvic bones are intact. Severe osteoarthritis within the left hip with [id number] articulation, subchondral sclerosis, and large marginal osteophytes. There is also flattening/deformity of the superior femoral head. Soft tissues are unremarkable. A Fitzgerald catheter within the decompressed bladder. IMPRESSION: 1. No acute fracture or dislocation within the left hip. 2. Severe osteoarthritis within the left hip. There is also flattening/deformity of the superior femoral head. This could be due to the long-standing degenerative change, however, avascular necrosis could also have a similar appearance. Electronically signed by: Morgan Kelly M.D. 03/12/2017 1:00 PM Dictated Date/Time: 03/12/2017 12:54 PM
[2017-03-12] MEDS: LEVOFLOXACIN / D5W 250 MG in PREMIXED IN D5W 50 ML IV SCH (18:10)
[2017-03-12] MEDS ORDERED: LEVO-17 PO (18:33)
--- NOTE | 2017-03-12 18:37 | Discharge Instructions ---
Discharge Instructions Date of Service Mar 12, 2017. Admission Reason for Admission: Acute Psychosis, Hyperglycemia, Mariella Discharge Discharge Diagnosis / Problem: psychosis/probable mariella Discharge Goals Goal(s): Diagnostic testing, Therapeutic intervention Activity Recommendations Activity Limitations: as noted below (per psychiatric facility) . Instructions / Follow-Up Instructions / Follow-Up mariella - admitted from SNF for uncontrolled psychiatric issues - tried to manage at SNF but was refusing care, in house psychiatry unable to successfully help - sent to ER both due to danger to herself and others as well as to r/o underlying medical causes. does have positive urine culture but appears to be incidental finding rather than defining cause (difficult to tell if even significant due to inability to get a reliable history, she does adamantly deny any urinary symptoms, but due to mariella therefore obligated to treat, but with age/gender it may even simply be asymptomatic bacteriuria) - is sensitive to cephalosporins - treat as uncomplicated cystitis w cephalexin as per med rec UTI -see above Current Hospital Diet Patient's current hospital diet: Discharge Diet Recommended Diet: Low Sodium Diet (2gm Na), Diabetes Type 2 Diet Pending Studies Studies pending at discharge: yes List of pending studies: final sensitivities on urine culture Laboratory Results Hemoglobin A1c Test 03/11/17 02:45 Range/Units Estimated Average Glucose 186 mg/dl Hemoglobin A1c 8.1 H 4.5-5.6 % Medical Emergencies . Who to Call and When: Medical Emergencies: If at any time you feel your situation is an emergency, please call 911 immediately. . Non-Emergent Contact Non-Emergency issues call your: Primary Care Provider, Specialist (psychiatrist ) . . "Provider Documentation" section prepared by Robbin Osman. . VTE Core Measure Inpt VTE Proph given/why not?: Unfractionated heparin SQ, SCD's
--- NOTE | 2017-03-12 18:47 | Progress Note ---
Subjective Date of Service: Mar 12, 2017. 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 appears trusting of me, but VERY distrusting of nursing and asks me how many babies have been harmed today. also speaks a lot in whisper difficult to understand but appearing to be discussing her fear/ distrust of current situation. hip pain L sided, radiates to middle of knee. notes it's fairly severe. almost impossible to get further HPI or ROS due to mental state Problem List Medical Problems: (1) Acute paranoia Status: Acute (2) Back pain Status: Acute (3) DKA (diabetic ketoacidosis) Status: Acute (4) Hernia of bladder Status: Acute (5) Hyponatremia Status: Acute (6) UTI (urinary tract infection) Status: Acute Review of Systems all other ROS otherwise negative except for as above Objective Vital Signs Date Time Temp Pulse Resp B/P (MAP) Pulse Ox O2 Delivery O2 Flow Rate FiO2 03/12/17 17:00 96 Room Air 03/12/17 16:57 94 19 161/82 (108) 96 03/12/17 16:08 97 Room Air 03/12/17 12:15 105 16 171/95 (120) 96 Room Air 03/12/17 12:07 97 Room Air 03/12/17 08:01 97 Room Air 03/12/17 07:39 36.6 111 25 154/78 (103) 96 03/12/17 04:07 36.6 105 18 133/70 (91) 98 Room Air 03/12/17 04:00 96 Room Air 03/12/17 00:05 96 Room Air 03/11/17 23:50 36.8 107 17 133/65 (87) 96 Room Air 03/11/17 20:00 95 Room Air 03/11/17 19:18 36.4 110 21 149/87 (107) 95 Room Air Physical Exam General Appearance: no apparent distress Eyes: EOMI ENT: hearing grossly normal Neck: trachea midline Respiratory/Chest: no respiratory distress, no accessory muscle use Extremities: + pertinent finding (LLE very tender to move in any ROM, no crepitis, LE edema without erythema or calf tenderness) Laboratory Results Last 24 Hours Test 03/11/17 20:14 03/11/17 21:05 03/11/17 23:34 03/12/17 11:30 Sodium Level 140 mmol/L 142 mmol/L Potassium Level 4.1 mmol/L 3.8 mmol/L Chloride Level 108 mmol/L 111 mmol/L Carbon Dioxide Level 25 mmol/L 24 mmol/L Anion Gap 7.0 mmol/L 8.0 mmol/L Blood Urea Nitrogen 11 mg/dl 9 mg/dl Creatinine 0.77 mg/dl 0.64 mg/dl Est Creatinine Clear Calc Drug Dose 83.2 ml/min 100.2 ml/min Estimated GFR () 90.7 104.8 Estimated GFR (Non- 78.2 90.4 BUN/Creatinine Ratio 13.9 14.7 Random Glucose 215 mg/dl 181 mg/dl Calcium Level 8.9 mg/dl 8.7 mg/dl Phosphorus Level 2.0 mg/dl 2.0 mg/dl Magnesium Level 2.0 mg/dl 2.0 mg/dl Bedside Glucose 208 mg/dl 106 mg/dl Assessment and Plan acute psychosis/jun -appearing most c/w jun - ongoing med management/psych management -anticipate need for inpatient psych - clearly not having capacity to make safe decisions, and was putting herself/others at risk, fashioning weapons, etc hip pain -due to severity of pain, obligated to check CT, due to her lack of capacity to make decisions/refusal to have CT done and risk of having undiagnosed fx - obligated to sedate to rule this out - d/w psych who agreed wtih this plan of action given the overall situation positive urine culture -unclear if truly an infection or asymptomatic bacteriuria - givne age/gender and lack of septic picture, favor the latter, but given lack of ability to get reliable hx, obligated to treat. does NOT appear to be a precipitating factor for any of above, however. given allergies will start w levaquin 250mg daily DM -reasonable control given current psych circumstances -continue current insulins -follow glucoses as she'll allow DVT proph -heparin SQ
[2017-03-12] MEDS: MoRPHine SULFATE IR 15 MG TAB (IMMEDIATE RELEASE) PO PRN (18:59)
[2017-03-12] MEDS: SIMVASTATIN 40 MG TAB PO SCH (20:38)
[2017-03-12] MEDS ORDERED: LORAZEPAM 2 MG/ML 1 ML VIAL IV STA (21:38)
[2017-03-13] VITALS (7 sets, daily range): BP systolic 116–137; BP diastolic 66–72; PULSE 90–112; TEMP 36.6–36.7; O2SAT 93–98
[2017-03-13] MEDS: NSS + 20MEQ KCL 1000ML 1,000 ML IV SCH ×3 (04:55→17:24)
[2017-03-13] MEDS: MoRPHine SULFATE CR 15 MG TAB (MS CONTIN) PO SCH ×3 (06:00→21:52)
[2017-03-13] MEDS: MoRPHine SULFATE CR 60 MG TAB (MS CONTIN) PO SCH ×3 (06:00→21:52)
[2017-03-13] MEDS: LEVOTHYROXINE 50 MCG TAB PO SCH (06:02)
[2017-03-13] MEDS: INSULIN ASPART 100 UNITS/ML 3 ML PEN SC SCH ×4 (07:00→21:53)
[2017-03-13] MEDS: ANORO ELLIPTA~ORDER AWAITING ACTION SCH ×2 (07:44→16:00)
[2017-03-13] MEDS: VALPROATE SOD IV 250 MG in DEXTROSE 5% 50ML 50 ML IV SCH (07:53)
[2017-03-13] MEDS: SODIUM CHLORIDE 0.65% NA SOLN 45 ML (OCEAN) NAE SCH ×2 (07:53→20:00)
[2017-03-13] MEDS: METOPROLOL SUCC 50MG EXT REL TAB PO SCH ×2 (07:54→20:00)
[2017-03-13] MEDS: DOCUSATE SODIUM/SENNA 50/8.6MG TAB PO SCH ×3 (07:55→20:00)
[2017-03-13] MEDS: ASPIRIN 81 MG ECTAB PO SCH (07:56)
[2017-03-13] MEDS: CYANOCOBALAMIN 500 MCG TAB (VIT B-12) PO SCH (07:56)
[2017-03-13] MEDS: FAMOTIDINE 20 MG TAB PO SCH ×2 (07:57→20:00)
[2017-03-13] MEDS: FUROSEMIDE 20 MG TAB PO SCH (07:57)
[2017-03-13] MEDS: POLYETHYLENE (MIRALAX) 17 GM PACK PO SCH (07:58)
[2017-03-13] MEDS: LUBIPROSTONE 8 MCG CAP PO SCH ×2 (07:58→20:00)
[2017-03-13] MEDS: POTASSIUM CHLORIDE 10 MEQ TABCR PO SCH (07:59)
[2017-03-13] MEDS: HEPARIN SOD 5000 UNIT/0.5 ML CARP SQ SCH ×2 (08:00→21:00)
[2017-03-13] MEDS: MoRPHine SULFATE IR 15 MG TAB (IMMEDIATE RELEASE) PO PRN ×2 (08:01→23:56)
[2017-03-13] MEDS: INSULIN GLARGINE SOLOSTAR 100 UNITS/ML 3 ML PEN SC SCH ×2 (09:00→20:00)
[2017-03-13] MEDS ORDERED: CEPH-570 PO (10:21)
[2017-03-13] MEDS ORDERED: CEPHALEXIN MONOHYDRATE 250 MG CAP PO ONE (10:30)
[2017-03-13] MEDS: CEPHALEXIN MONOHYDRATE 250 MG CAP PO SCH ×3 (13:13→20:00)
--- NOTE | 2017-03-13 13:19 | Discharge Summary ---
Discharge Summary Date of Service Mar 13, 2017. Discharge Summary Admission Date: Mar 11, 2017 at 04:05 Discharge Date: Mar 13, 2017 Discharge Disposition: Acute care mental health Principal Diagnosis: jun Problems/Secondary Diagnoses: positive urine culture - simple cystitis vs asymptomatic bacteriuria (but with jun clouding reliability of her history, obligated to treat) Immunizations: Have You Had Influenza Vaccine: N/A Influenza Vaccine Date: Dec 08, 2011 History of Tetanus Vaccine?: Unknown Tetanus Immunization Date: May 07, 2010 History of Pneumococcal: Unknown Pneumococcal Date: May 07, 2010 History of Hepatitis B Vaccine: Unknown Procedures: Date/Time Source Procedure Growth Status 03/11/17 06:45 Nasal MRSA DNA Surveillance Screen - Final Specimen Negative for MRSA by DNA Probe Complete 03/11/17 18:15 Urine , Clean Catch Urine Culture - Final Escherichia Coli Escherichia Coli#2 Complete E Coli listed as sensitive to cephalosporins, resistant to quinolones. E Coli # 2 final sensitivities pending Last Resulted CBC 03/11/17 00:54 Red Blood Count 4.68, Mean Corpuscular Volume 88.7, Mean Corpuscular Hemoglobin 29.3, Mean Corpuscular Hemoglobin Concent 33.0, Mean Platelet Volume 10.7, Neutrophils (%) (Auto) 79.7, Lymphocytes (%) (Auto) 9.6, Monocytes (%) (Auto) 9.2, Eosinophils (%) (Auto) 0.6, Basophils (%) (Auto) 0.5, Neutrophils # (Auto) 8.02, Lymphocytes # (Auto) 0.96, Monocytes # (Auto) 0.92, Eosinophils # (Auto) 0.06, Basophils # (Auto) 0.[address] DOSE: 673.82 mGycm HISTORY: Left hip pain with movement, ?occult fracture TECHNIQUE: Multiaxial CT images of the left hip were performed and reformatted in the sagittal and coronal plane without the use of contrast. A dose lowering technique was utilized adhering to the principles of ALARA. COMPARISON: Left hip 03/11/2017. FINDINGS: No acute fracture dislocation within the left hip. The visualized pelvic bones are intact. Severe osteoarthritis within the left hip with [id number] articulation, subchondral sclerosis, and large marginal osteophytes. There is also flattening/deformity of the superior femoral head. Soft tissues are unremarkable. A Fitzgerald catheter within the decompressed bladder. IMPRESSION: 1. No acute fracture or dislocation within the left hip. 2. Severe osteoarthritis within the left hip. There is also flattening/deformity of the superior femoral head. This could be due to the long-standing degenerative change, however, avascular necrosis could also have a similar appearance. Electronically signed by: Morgan Kelly M.D. 03/12/2017 1:00 PM Dictated Date/Time: 03/12/2017 12:54 PM [~ rep ct add3]] CT OF THE HEAD WITHOUT CONTRAST CLINICAL HISTORY: acute paranoia; h/o breast CA COMPARISON STUDY: Head CT December 04, 2013. CT DOSE: 614.27 mGy.cm TECHNIQUE: Helical axial images of the head were obtained without IV contrast. Automated exposure control was utilized for the study. A dose lowering technique was utilized adhering to the principles of ALARA. FINDINGS: No acute intracranial hemorrhage, midline shift or mass effect is present. Ventricular system is stable. Basilar cisterns are patent. There are no extra-axial collections. White matter hypodensity suggests small vessel disease. There are no findings to suggest acute dural sinus thrombosis or acute territorial infarct. There are no significant calvarial abnormalities. Visualized portions of the sinuses and mastoid air cells are clear. IMPRESSION: No acute intracranial findings. No significant change since previous exam. Electronically signed by: Rojelio Bill M.D. 03/11/2017 7:02 AM Dictated Date/Time: 03/11/2017 7:00 AM Consultations: psychiatry Medication Reconciliation New Medications: Cephalexin (Keflex) 250 Mg Cap 1 CAP PO QID for 10 Days, #20 CAP Continued Medications: Acetaminophen Tab (Tylenol) 325 Mg Tab 650 MG PO Q12 PRN for Pain or Fever not to exceed 3gm/24hr Albuterol Sulf (Proventil 0.083% 2.5MG/3ML) 2.5 Mg/3 Ml Nebu 2.5 MG INH Q4H PRN for SOB/Wheezing Artificial Tear Solution (Artificial Tears) 1 Gisell Gisell 1 DROPS OPB Q8 PRN for DRYNESS, 5 Refills Artificial Tear Solution (Artificial Tears) 1 Gisell Gisell 1 DROPS OPB DAILY, 5 Refills Aspirin (Aspirin Chewable) 81 Mg Chew 81 MG PO QAM Carboxymethylcellulose-Glyceri (Refresh Optive 1-0.9 %) 1 Gel Gel 1 DROP OPB BID Cyanocobalamin (Vitamin B-12) 1,000 Mcg Tab 1000 MCG PO DAILY, TAB Diclofenac (Voltaren) 50 Mg Tabec 50 MG PO Q8H PRN for HEADACHE, TAB Dimethicone-Petrolatum (Gold Patterson Ultimate Diabet 3-30 %) 1 Cre Cre 1 AU TOP TID PRN for DRY SKIN USE ON LOWER LEGS Divalproex Sodium (Depakote Er) 250 Mg Tab 250 MG PO DAILY Duloxetine HCl (Cymbalta) 30 Mg Cap 30 MG PO QAM, 2 Refills Famotidine (Pepcid) 20 Mg Tab 20 MG PO BID heartburn, indigestion Furosemide (Lasix) 20 Mg Tab 20 MG PO QAM Insulin Detemir (Levemir) 100 Units/Ml Inj 90 UNITS SC QPM Insulin Lispro (Humalog) Inj 1 DOSE SC ACHS, VIAL ALSO SLIDING SCALE DIRECTED- 350-400=8 UNITS 401-450=12 UNITS 451-500=16 UNITS >500=18 UNITS, RECHECK IN 2 HRS Insulin Lispro (Human) (Humalog) 100 Unit/Ml Inj 20 UNITS SC AC Levothyroxine Sodium (Levothyroxine Sodium) 50 Mcg Tab 50 MCG PO QAM, 3 Refills Linaclotide (Linzess) 145 Mcg Cap 145 MCG PO QAM Lubiprostone (Amitiza) 24 Mcg Cap 24 MCG PO BID, CAP Metformin Hcl (Glucophage) 500 Mg Tab 500 MG PO BIDM Metoprolol Succ (Toprol Xl) (Toprol-Xl) 50 Mg Tabcr 50 MG PO BID, 5 Refills Morphine Sulfate (Morphine Sulfate Er) 30 Mg Cap 30 MG PO Q8H Morphine Sulfate Ir (Morphine Sulfate Ir) 30 Mg Tab 30 MG PO Q6 PRN for Pain, TAB Morphine Sulfate (Morphine Sulfate Er) 60 Mg Cap 60 MG PO Q8H Mouthwashes (Biotene Dry Mouth Oral Ri) 1 Liq Liq 1 SPRAY PO Q4 PRN for dry mouth Mouthwashes (Biotene Dry Mouth Oral Ri) 1 Liq Liq 1 SPRAY PO TID Ondansetron Hcl (Zofran) 4 Mg Tab 4 MG PO Q8H PRN for Nausea, TAB Potassium Chloride (Micro-K Ext Rel) 10 Meq Capcr 2 TAB PO QAM, CAP Probiotic Product (Acidophilus) 1 Cap Cap 1 CAP PO HS Saline ([place] Nasal [place]) 0.65 % Spr 1 SPRAY LITA BID Sennosides-Docusate Sodium (Senna Plus) 1 Tab Tab 4 TABS PO TID Simvastatin (Zocor) 40 Mg Tab 40 MG PO QPM, TAB Tramadol (Ultram) 50 Mg Tab 50 MG PO Q6 PRN for Pain, TAB Umeclidinium-Vilanterol (Anoro Ellipta 62.5-25 Mcg/INH) 1 Aer Aer 1 PUFF INH DAILY Venlafaxine Hcl (Venlafaxine Hcl Er) 150 Mg Tab 1 TAB PO QAM for 30 Days, #30 TAB 2 Refills Discharge Exam Physical Exam: General Appearance: no apparent distress Eyes: EOMI Neck: trachea midline Respiratory/Chest: no respiratory distress, no accessory muscle use Extremities: normal inspection Neurologic/Psychiatric: 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 appearing VERY arthritic. supportive care, can give trial of voltaren gel if doesn't improve w time over next few days positive urine culture -unclear if truly an infection or asymptomatic bacteriuria - given age/gender and lack of septic picture, favor the latter, but given lack of ability to get reliable hx (for what it's worth she totally denies UTI sx), obligated to treat. does NOT appear to be a precipitating factor for any of above, however. 2 strains of E Coli - first strain showing sensitivities to cephalosporins - will treat w keflex, can alter course of treatment if second culture shows different sensitivities -for clarification -- again no symptoms, no sepsis, question significance in general, so does not appear that her mental status was encephalopathy related to UTI DM -reasonable control given current psych circumstances -continue current insulins -follow glucoses as she'll allow DVT proph -heparin SQ utilized while inpatient stable for inpatient psych Total Time Spent: Less than 30 minutes This includes examination of the patient, discharge planning, medication reconciliation, and communication with other providers. Discharge Instructions Please refer to the electronic Patient Visit Report (Discharge Instructions) for additional information. Additional Copies To [place] [place]
[2017-03-13] MEDS: LEVOFLOXACIN / D5W 250 MG in PREMIXED IN D5W 50 ML IV SCH (17:25)
[2017-03-13] MEDS: SIMVASTATIN 40 MG TAB PO SCH (21:00)
[2017-03-14] MEDS: NSS + 20MEQ KCL 1000ML 1,000 ML IV SCH ×3 (00:55→13:54)
[2017-03-14] MEDS: TRAMADOL HCL 50 MG TAB PO PRN ×2 (01:08→12:41)
[2017-03-14] MEDS ORDERED: LORAZEPAM IV STA (05:54)
[2017-03-14] MEDS ORDERED: HALOPERIDOL LACTATE 5 MG/ML 1 ML VIAL IM STA (05:54)
[2017-03-14] MEDS: MoRPHine SULFATE CR 15 MG TAB (MS CONTIN) PO SCH ×2 (06:00→13:53)
[2017-03-14] MEDS ORDERED: LORAZEPAM INJ 1 MG in SYRINGE 0.5 ML IV PRN (06:00)
[2017-03-14] MEDS: MoRPHine SULFATE CR 60 MG TAB (MS CONTIN) PO SCH ×2 (06:00→13:54)
[2017-03-14] MEDS: HALOPERIDOL LACTATE 5 MG/ML 1 ML VIAL ONE ×2 (06:22→06:23)
[2017-03-14] MEDS: LEVOTHYROXINE 50 MCG TAB PO SCH (06:30)
[2017-03-14] MEDS: ANORO ELLIPTA~ORDER AWAITING ACTION SCH ×2 (06:55)
[2017-03-14] MEDS: LUBIPROSTONE 8 MCG CAP PO SCH (09:47)
[2017-03-14] MEDS: VALPROATE SOD IV 250 MG in DEXTROSE 5% 50ML 50 ML IV SCH (09:47)
[2017-03-14] MEDS: SODIUM CHLORIDE 0.65% NA SOLN 45 ML (OCEAN) NAE SCH (09:47)
[2017-03-14] MEDS: INSULIN ASPART 100 UNITS/ML 3 ML PEN SC SCH ×2 (09:47→12:53)
[2017-03-14] MEDS: FUROSEMIDE 20 MG TAB PO SCH (09:48)
[2017-03-14] MEDS: ASPIRIN 81 MG ECTAB PO SCH (09:48)
[2017-03-14] MEDS: FAMOTIDINE 20 MG TAB PO SCH (09:48)
[2017-03-14] MEDS: DOCUSATE SODIUM/SENNA 50/8.6MG TAB PO SCH ×2 (09:48→13:54)
[2017-03-14] MEDS: POLYETHYLENE (MIRALAX) 17 GM PACK PO SCH (09:48)
[2017-03-14] MEDS: POTASSIUM CHLORIDE 10 MEQ TABCR PO SCH (09:48)
[2017-03-14] MEDS: CEPHALEXIN MONOHYDRATE 250 MG CAP PO SCH ×2 (09:48→12:54)
[2017-03-14] MEDS: METOPROLOL SUCC 50MG EXT REL TAB PO SCH (09:49)
[2017-03-14] MEDS: CYANOCOBALAMIN 500 MCG TAB (VIT B-12) PO SCH (09:49)
[2017-03-14] MEDS: INSULIN GLARGINE SOLOSTAR 100 UNITS/ML 3 ML PEN SC SCH (09:49)
[2017-03-14] MEDS: HEPARIN SOD 5000 UNIT/0.5 ML CARP SQ SCH (09:49)
[2017-03-14] MEDS: MoRPHine SULFATE IR 15 MG TAB (IMMEDIATE RELEASE) PO PRN (10:06)
--- NOTE | 2017-03-14 19:15 | Progress Note ---
Progress Note Date of Service Mar 14, 2017. Progress Note no new problems - was agitated again through the night but similar to how she was when first in ER sleeping comfortably when i see her vitals noted breathing unlabored no pallor or icterus jun - for inpatient psych - stable for transfer; otherwise see yesterday's full discharge summary for more details
== END 2017-03-14 14:30 | DRG 885 ==
LOC: EDBD 00:14 → C.EDB 00:17 → EDBEDREQ 03:42 → C.2E 04:05 → EDBEDREQSVC 04:06 → ENRESERV 04:39 → C.MS4W 03-13 17:56
PROVIDERS: ADMIT Student in an Organized Health Care Education/Training Program; ATTEND Family Medicine
DX: F30.9 Manic episode, unspecified (principal); E11.10 Type 2 diabetes mellitus with ketoacidosis without coma; E87.1 Hypo-osmolality and hyponatremia; N39.0 Urinary tract infection, site not specified; M79.7 Fibromyalgia; G35 Multiple sclerosis; F31.9 Bipolar disorder, unspecified; Z88.2 Allergy status to sulfonamides; Z91.14 Patient's other noncompliance with medication regimen; E78.5 Hyperlipidemia, unspecified; I10 Essential (primary) hypertension; I25.10 Atherosclerotic heart disease of native coronary artery without angina pectoris; J44.9 Chronic obstructive pulmonary disease, unspecified; Z79.4 Long term (current) use of insulin; Z92.3 Personal history of irradiation; G89.29 Other chronic pain; M79.661 Pain in right lower leg; M79.662 Pain in left lower leg; B96.20 Unspecified Escherichia coli [E. coli] as the cause of diseases classified elsewhere; I48.91 Unspecified atrial fibrillation; M25.552 Pain in left hip; Z88.0 Allergy status to penicillin; Z79.84 Long term (current) use of oral hypoglycemic drugs; Z87.440 Personal history of urinary (tract) infections; Z85.3 Personal history of malignant neoplasm of breast

== ENCOUNTER → 2017-04-04 | Outpatient (CLI) | payer OTHER ==
[~2017-04-04] MED LIST changes: +ACET-1693 PO; -ACET325T96 PO; -ARTIOIN2 OPB; +ARTISOL12 OPB; -ARTISOL8 OPB; -ARTISPR PO; +CARB1GEL14 OPB; +CEPH-570 PO; -CLON0.5T3 PO; -CRAN1TAB3 PO; -CRANLIQ PO; +DIVA250T PO; -LACTCAP3 PO; -LINICRE EXT; -METO50TA7 PO; +METO50TA8 PO; +MOUTLIQ83 PO; -SENN-65 PO; +SENN1TAB65 PO; -SPRIN/30 INH; +UMEC1AER INH; +[UNRECOGNIZED DRUG - CODE] TOP
[2017-04-04 08:45] LABS: BASO % 0.2 %; BASO ABS # 0.01 K/uL (0-0.2); EOS % 2.4 %; EOS ABS # 0.12 K/uL (0-0.5); HEMOGLOBIN 10.6 g/dL (12.0-16.0); IG# 0.02 K/uL (0.00-0.02); LYMPH % 32.5 %; LYMPH ABS # 1.63 K/uL (1.2-3.4); MEAN CELL VOLUME 94.1 fL (80-100); MEAN CORPUSCULAR HEMOGLOBIN 28.5 pg (25-34); MEAN CORPUSCULAR HGB CONC 30.3 g/dl (32-36); MONO % 13.1 %; MONO ABS # 0.66 K/uL (0.11-0.59); NEUT % 51.4 %; NEUT ABS # 2.58 K/uL (1.4-6.5); PLATELET COUNT 186 K/uL (130-400); RED CELL DISTRIBUTION WIDTH CV 15.4 % (11.5-14.5); RED CELL DISTRIBUTION WIDTH SD 52.6 fL (36.4-46.3); WHITE BLOOD COUNT 5.02 K/uL (4.8-10.8)
[2017-04-04 08:56] LABS: ALBUMIN 2.6 gm/dl (3.4-5.0); ALT/SGPT 16 U/L (12-78); AST/SGOT 10 U/L (15-37); BLOOD UREA NITROGEN 18 mg/dl (7-18); CALCIUM 8.9 mg/dl (8.5-10.1); CARBON DIOXIDE 30 mmol/L (21-32); CREATININE 0.72 mg/dl (0.60-1.20); GLUCOSE 177 mg/dl (70-99); POTASSIUM 4.2 mmol/L (3.5-5.1); SODIUM 142 mmol/L (136-145)
[2017-04-04 09:05] LABS: ALKALINE PHOSPHATASE 125 U/L (45-117); TOTAL PROTEIN 5.7 gm/dl (6.4-8.2)
[2017-04-04 09:24] LABS: HEMOGLOBIN A1C 8.9 % (4.5-5.6)
== END ==
LOC: C.LABCC 08:30
PROVIDERS: ATTEND Internal Medicine
DX: R41.82 Altered mental status, unspecified (principal); I48.91 Unspecified atrial fibrillation; I10 Essential (primary) hypertension; E78.5 Hyperlipidemia, unspecified; E11.9 Type 2 diabetes mellitus without complications

== ENCOUNTER → 2017-04-19 | Outpatient (CLI) | payer OTHER ==
[2017-04-19 08:54] LABS: BASO % 0.2 %; BASO ABS # 0.02 K/uL (0-0.2); EOS ABS # 0.24 K/uL (0-0.5); HEMATOCRIT 36.5 % (37-47); HEMOGLOBIN 11.2 g/dL (12.0-16.0); IG# 0.02 K/uL (0.00-0.02); LYMPH ABS # 1.69 K/uL (1.2-3.4); MEAN CELL VOLUME 91.7 fL (80-100); MEAN CORPUSCULAR HEMOGLOBIN 28.1 pg (25-34); MEAN CORPUSCULAR HGB CONC 30.7 g/dl (32-36); MEAN PLATELET VOLUME 11.1 fL (7.4-10.4); MONO % 12.8 %; MONO ABS # 1.03 K/uL (0.11-0.59); NEUT % 62.8 %; NEUT ABS # 5.04 K/uL (1.4-6.5); PLATELET COUNT 138 K/uL (130-400); RED CELL DISTRIBUTION WIDTH CV 14.7 % (11.5-14.5); RED CELL DISTRIBUTION WIDTH SD 49.5 fL (36.4-46.3); WHITE BLOOD COUNT 8.04 K/uL (4.8-10.8)
== END ==
LOC: C.LABCC 08:32
PROVIDERS: ATTEND Internal Medicine
DX: D64.9 Anemia, unspecified (principal)

== ENCOUNTER → 2017-05-31 | Outpatient (CLI) | payer OTHER | LOC: C.LABCC 07:45 | PROVIDERS: ATTEND Internal Medicine | DX: E78.5 Hyperlipidemia, unspecified (principal) ==

== ENCOUNTER 2017-06-23 07:35 | Inpatient (IN) | payer OTHER ==
[~2017-06-23] VITALS: Ht 170.2 cm; Wt 76.5 kg
[2017-06-23] VITALS (8 sets, daily range): BP systolic 127–161; BP diastolic 60–87; PULSE 114–127; TEMP 37.1–37.3; O2SAT 91–100; BMI 36.3
[2017-06-23] MEDS ORDERED: SODIUM CHLORIDE 0.9% 1000ML 1,000 ML IV ONE (07:44)
--- NOTE | 2017-06-23 07:57 | EMERGENCY ROOM VISIT NOTE ---
History Report prepared by Amelia: Eun Castro Under the Supervision of: Dr. Charles Barragan D.O. First contact with patient: 07:36 Stated Complaint: FEVER/ILLNESS History of Present Illness The patient is a 72 year old female who presents to the Emergency Room with complaints of a fever beginning yesterday. As per EMS, she had a temperature of 101.7 tympanically and her oxygen saturation was 90% on room air. She was started n Macrobid yesterday. She has arm pain but denies a cough or headache. HPI and ROS limited due to the patient's altered mental status. Source of History: patient History Limited By: AMS Onset: yesterday Position: other (global) Quality: other (fever of 101.7) Associated Symptoms: No headache, No cough Note: Positive arm pain Review of Systems See HPI for pertinent positives & negatives. HPI and ROS limited due to the patient's altered mental status. A total of 6 systems reviewed and were otherwise negative. Past Medical & Surgical Medical Problems: (1) Acute psychosis (2) Atrial fibrillation (3) bipolar disorder by history, with psychosis (4) Chronic urinary tract infection (5) COPD (chronic obstructive pulmonary disease) (6) Diabetes mellitus (7) Dyslipidemia (8) fibromyalgia (9) GERD (gastroesophageal reflux disease) (10) Herniated disc (11) Hx of TIA (transient ischemic attack) and stroke (12) Hyperglycemia (13) Hypertension (14) Hypothyroidism (15) Mariella (16) Multiple sclerosis (17) SIRS (systemic inflammatory response syndrome) Family History No pertinent family history Social History Smoking Status: Never Smoker Smokeless Tobacco Use: Unknown Marital Status: Housing Status: [facility] Occupation Status: retired Current/Historical Medications Scheduled Artificial Tear Solution (Artificial Tears), 1 DROPS OPB HS Aspirin (Aspirin Chewable), 81 MG PO QAM Bisacodyl (Dulcolax), 10 MG [place] Q2D Carboxymethylcellulose-Glyceri (Refresh Optive 1-0.9 %), 1 DROP OPB BID Cyanocobalamin (Vitamin B-12), 1,000 MCG PO DAILY Famotidine (Pepcid), 20 MG PO BID Furosemide (Lasix), 20 MG PO QAM Insulin Detemir (Levemir), 90 UNITS SC HS Insulin Lispro (Human) (Humalog), 20 UNITS SC AC Insulin Lispro (Human) (Humalog), 1 DOSE SQ UD Levothyroxine Sodium (Levothyroxine Sodium), 50 MCG PO QAM Menthol-Methyl Salicylate (Marissa (Bengay Greaseless), 1 APPLN TOP TID Metformin Hcl (Glucophage), 500 MG PO BIDM Metoprolol Tartrate (Lopressor), 50 MG PO BID Mouthwashes (Biotene Dry Mouth Oral Ri), 1 SPRAY PO TID Potassium Chloride (Potassium Chloride ER), 20 MEQ PO QAM Probiotic Product (Acidophilus), 1 CAP PO HS Saline ([place] Nasal [place]), 1 SPRAY LITA HS Sennosides-Docusate Sodium (Senna Plus), 1 TABS PO TID Simvastatin (Zocor), 40 MG PO QPM Umeclidinium-Vilanterol (Anoro Ellipta 62.5-25 Mcg/INH), 1 PUFF INH DAILY Venlafaxine Hcl (Venlafaxine Hcl Er), 1 TAB PO QAM Scheduled PRN Acetaminophen (Tylenol), 650 MG [place] Q12 PRN for Pain or Fever Albuterol Sulf (Proventil 0.083% 2.5MG/3ML), 2.5 MG INH Q4H PRN for SOB/Wheezing Artificial Tear Solution (Artificial Tears), 1 DROPS OPB Q8 PRN for DRYNESS Diclofenac Sod (Diclofenac Sodium Dr), 50 MG PO TID PRN for Pain Dimethicone-Petrolatum (Gold Patterson Ultimate Diabet 3-30 %), 1 APPLN TOP TID PRN for DRY SKIN Divalproex Sodium (Depakote Sprinkles), 125 MG PO TID PRN for MOOD SWINGS Haloperidol (Haldol), 5 MG PO HS PRN for PSYCHOSIS Morphine Sulfate (Morphine Sulfate ER), 60 MG PO TID PRN for Pain Mouthwashes (Biotene Dry Mouth Oral Ri), 1 SPRAY PO Q4 PRN for dry mouth Nitrofurantoin Monohyd Macro (Macrobid), 100 MG PO BID PRN for UTI Ondansetron Hcl (Zofran), 4 MG PO Q8H PRN for Nausea Tramadol (Ultram), 50 MG PO Q6 PRN for Pain Allergies Coded Allergies: Adhesives (Verified Allergy, Unknown, unknown, 06/23/17) Amitriptyline (Verified Allergy, Unknown, unknown, 06/23/17) Amoxicillin (Verified Allergy, Unknown, unknown, 06/23/17) Baclofen (Verified Allergy, Unknown, unknown, 06/23/17) Benzalkonium Chloride (Verified Allergy, Unknown, UNKNOWN, 06/23/17) Benzocaine (Verified Allergy, Unknown, UNKNOWN, 06/23/17) Erythromycin (Verified Allergy, Unknown, unknown, 06/23/17) Gabapentin (Unverified Allergy, Unknown, UNKNOWN, 06/23/17) Isoflurane (Verified Allergy, Unknown, unknown, 06/23/17) Lanolin (Verified Allergy, Unknown, unknown, 06/23/17) Latex (Verified Allergy, Unknown, unknown, 06/23/17) Nitrofurantoin (Verified Allergy, Unknown, unknown, 06/23/17) Oxycodone (Verified Allergy, Unknown, unknown, 06/23/17) PATIENT TOLERATES MORPHINE Penicillins (Verified Allergy, Unknown, unknown, 06/23/17) Pregabalin (Unverified Allergy, Unknown, UNKNOWN, 06/23/17) Procaine (Verified Allergy, Unknown, unknown, 06/23/17) Promethazine (Verified Allergy, Unknown, unknown, 06/23/17) Propoxyphene (Verified Allergy, Unknown, unknown, 06/23/17) Sulfa Antibiotics (Verified Allergy, Unknown, CAN TAKE LASIX, 06/23/17) Sulfamethoxazole w/Trimethoprim (Verified Allergy, Unknown, unknown, ) Zinc (Verified Allergy, Unknown, UNKNOWN, 06/23/17) Prednisone (Verified Adverse Reaction, Unknown, UNKNOWN, 06/23/17) Physical Exam Vital Signs Date Time Temp Pulse Resp B/P (MAP) Pulse Ox O2 Delivery O2 Flow Rate FiO2 06/23/17 10:05 37.3 118 20 116/67 94 Nasal Cannula 3.0 06/23/17 09:53 96 Nasal Cannula 3.0 06/23/17 08:34 122 22 127/68 96 Nasal Cannula 3.0 06/23/17 08:32 96 Nasal Cannula 3.0 06/23/17 08:10 132 06/23/17 07:41 38.5 127 24 141/78 92 Room Air Physical Exam GENERAL: Patient is slow to respond but awake to verbal questioning EYES: The conjunctivae are clear. The pupils are round and reactive. EARS, NOSE, MOUTH AND THROAT: The nose is without any evidence of any deformity. Mucous membranes are dry tongue is midline NECK: The neck is nontender and supple. RESPIRATORY: Lungs sounds diminished at the right base. CARDIOVASCULAR: Heart is tachycardic but regular. No definite murmur noted. GASTROINTESTINAL: The abdomen is soft. Bowel sounds are present in all quadrants. Abdomen is nontender MUSCULOSKELETAL/EXTREMITIES: There is no evidence of gross deformity full range of motion is noted in the hips and shoulders SKIN: Pedal edema bilaterally. No signs of cellulitis in the LE. Erythema noted to the left lower leg. Appears more consistent with stasis dermatitis. NEUROLOGIC: Patient is oriented to person or place, but not time or situation. Medical Decision & Procedures ER Provider Diagnostic Interpretation: Radiology results as stated below per my review and radiologist interpretation: CHEST ONE VIEW PORTABLE HISTORY: 72 years-old Female Sepsis acute sepsis COMPARISON: Chest radiograph 12/04/2013 TECHNIQUE: Portable AP view of the chest FINDINGS: Patient is slightly rotated to the left. Cardiomediastinal and hilar silhouettes are within normal limits. No pneumothorax, pleural effusion, lobar airspace consolidation or overt pulmonary edema. Minimal subsegmental left basilar opacities suggest atelectasis. Degenerative changes of the shoulders and spine. IMPRESSION: No acute process. The above report was generated using voice recognition software. It may contain grammatical, syntax or spelling errors. Electronically signed by: Eric Oconnor M.D. 06/23/2017 9:01 AM Laboratory Results 06/23/17 07:55 Red Blood Count 4.25, Mean Corpuscular Volume 87.3, Mean Corpuscular Hemoglobin 29.4, Mean Corpuscular Hemoglobin Concent 33.7, Mean Platelet Volume 10.7, Neutrophils (%) (Auto) 91.2, Lymphocytes (%) (Auto) 2.3, Monocytes (%) (Auto) 6.2, Eosinophils (%) (Auto) 0.0, Basophils (%) (Auto) 0.1, Neutrophils # (Auto) 8.78, Lymphocytes # (Auto) 0.22, Monocytes # (Auto) 0.60, Eosinophils # (Auto) 0.00, Basophils # (Auto) 0.01 06/23/17 07:55 Test 5/6/18 07:55 06/23/17 08:15 06/23/17 08:17 06/23/17 08:18 White Blood Count 9.63 K/uL (4.8-10.8) Red Blood Count 4.25 M/uL (4.2-5.4) Hemoglobin 12.5 g/dL (12.0-16.0) Hematocrit 37.1 % (37-47) Mean Corpuscular Volume 87.3 fL (80-100) Mean Corpuscular Hemoglobin 29.4 pg (25-34) Mean Corpuscular Hemoglobin Concent 33.7 g/dl (32-36) Platelet Count 89 K/uL (130-400) Mean Platelet Volume 10.7 fL (7.4-10.4) Neutrophils (%) (Auto) 91.2 % Lymphocytes (%) (Auto) 2.3 % Monocytes (%) (Auto) 6.2 % Eosinophils (%) (Auto) 0.0 % Basophils (%) (Auto) 0.1 % Neutrophils # (Auto) 8.78 K/uL (1.4-6.5) Lymphocytes # (Auto) 0.22 K/uL (1.2-3.4) Monocytes # (Auto) 0.60 K/uL (0.11-0.59) Eosinophils # (Auto) 0.00 K/uL (0-0.5) Basophils # (Auto) 0.01 K/uL (0-0.2) RDW Standard Deviation 50.2 fL (36.4-46.3) RDW Coefficient of Variation 15.6 % (11.5-14.5) Immature Granulocyte % (Auto) 0.2 % Immature Granulocyte # (Auto) 0.02 K/uL (0.00-0.02) Platelet Estimate DECREASED Erythrocyte Sedimentation Rate 29 mm/hr (0-21) Prothrombin Time 10.8 SECONDS (9.0-12.0) Prothromb Time International Ratio 1.0 (0.9-1.1) Activated Partial Thromboplast Time 19.9 SECONDS (21.0-31.0) Partial Thromboplastin Ratio 0.8 Anion Gap 8.0 mmol/L (3-11) Est Creatinine Clear Calc Drug Dose 62.5 ml/min Estimated GFR () 63.3 Estimated GFR (Non- 54.6 BUN/Creatinine Ratio 15.6 (10-20) Calcium Level 8.6 mg/dl (8.5-10.1) Phosphorus Level 3.0 mg/dl (2.5-4.9) Magnesium Level 1.4 mg/dl (1.8-2.4) Total Bilirubin 0.4 mg/dl (0.2-1) Aspartate Amino Transf (AST/SGOT) 12 U/L (15-37) Alanine Aminotransferase (ALT/SGPT) 18 U/L (12-78) Alkaline Phosphatase 102 U/L (45-117) Total Creatine Kinase 73 U/L (26-192) Creatine Kinase MB 0.7 ng/ml (0.5-3.6) Creatine Kinase MB Ratio 1.0 (0-3.0) Troponin I 0.062 ng/ml (0-0.045) C-Reactive Protein 9.98 mg/dl (0-0.29) Pro-B-Type Natriuretic Peptide 2926 pg/ml (0-900) Total Protein 6.3 gm/dl (6.4-8.2) Albumin 2.8 gm/dl (3.4-5.0) Globulin 3.5 gm/dl (2.5-4.0) Albumin/Globulin Ratio 0.8 (0.9-2) Lipase 131 U/L (73-393) Beta-Hydroxybutyric Acid 2.25 mg/dL (0.2-2.81) Influenza Type A (RT-PCR) Neg for Influ A (NEG) Influenza Type B (RT-PCR) Neg for Influ B (NEG) Bedside Lactic Acid Venous 4.63 mmol/L (0.90-1.70) Venous Blood pH 7.37 (7.36-7.41) Venous Blood Partial Pressure CO2 44 mmHg (38.0-50.0) Venous Blood Partial Pressure O2 37 mmHg Venous Blood HCO3 25 mmol/L Venous Blood Oxygen Saturation 67.4 % Venous Blood Base Excess -0.6 mEq/L Ammonia < 10.0 umol/L (11-32) Test 06/23/17 08:25 Urine Color DK YELLOW Urine Appearance CLOUDY (CLEAR) Urine pH 6.0 (4.5-7.5) Urine Specific [place] 1.019 (1.000-1.030) Urine Protein 2+ (NEG) Urine Glucose (UA) 2+ (NEG) Urine Ketones 1+ (NEG) Urine Occult Blood NEG (NEG) Urine Nitrite NEG (NEG) Urine Bilirubin NEG (NEG) Urine Urobilinogen NEG (NEG) Urine Leukocyte Esterase MODERATE (NEG) Urine WBC (Auto) >30 /hpf (0-5) Urine RBC (Auto) 0-4 /hpf (0-4) Urine Hyaline Casts (Auto) 1-5 /lpf (0-5) Urine Epithelial Cells (Auto) 10-20 /lpf (0-5) Urine Bacteria (Auto) NEG (NEG) Urine Renal Epithelial Cells /lpf (0-5) Laboratory results per my review. Medications Administered Medications (Trade) Dose Ordered Sig/[place] Route Start Time Stop Time Status Last Admin Dose Admin Sodium Chloride 1,000 ml @ 999 mls/hr Q1H1M ONCE IV 06/23/17 07:44 06/23/17 08:44 DC 06/23/17 08:15 999 MLS/HR Magnesium Sulfate (Magnesium Sulfate 1gm / D5W) 2 gm NOW STAT IV 06/23/17 08:36 06/23/17 08:37 DC 06/23/17 08:56 2 GM Levofloxacin (Levaquin / D5W) 750 mg NOW STAT IV 06/23/17 09:03 06/23/17 09:05 DC 06/23/17 10:04 750 MG Sodium Chloride 1,000 ml @ 100 mls/hr Q10H IV 06/23/17 09:59 07/23/17 09:58 06/23/17 12:00 100 MLS/HR ECG Per My Interpretation Indication: other (fever) Rate (beats per minute): 133 Rhythm: sinus tachycardia Findings: ST depression (Lateral), other (no PVCs) Comparison ECG Date: 03/11/17 Change: no significant change ED Course 0740: The patient was evaluated in room B4. A complete history and physical examination were performed. 0744: Sodium Chloride 1000 ml @ 999 mls/hr IV 0836: Magnesium Sulfate 2 gm IV 0903: Levofloxacin 750 mg IV 0918: I discussed the patient's case with Dr. Ann, [facility] Hospitalist. The patient will be evaluated for further management. Medical Decision Prior records/ancillary studies reviewed. Triage Nursing notes reviewed. Additional history obtained from EMS. The patient's history was concerning for fever. Differential diagnosis: Etiologies such as viral syndrome, otitis, pharyngitis, pneumonia, influenza, meningitis, urinary tract infection, sepsis, bacteremia, as well as others were entertained. The patient is a 72-year-old female who presented to the emergency department for an evaluation of altered mental status. She was found to have a fever at her [facility]. The patient was found to have signs of urinary tract infection. She was found to have altered mental status by the nursing staff. The patient was treated with IV antibiotics and emergency department. I reviewed the patient's recent urinary cultures. It is possible she may require a second antibiotic. I discussed patient's laboratory and radiographic studies with the on-call [facility] hospitalist. They have agreed to evaluate the patient in the emergency department for further management and disposition. Medication Reconcilliation Current Medication List: was personally reviewed by me Blood Pressure Screening Patient's blood pressure: Normal blood pressure Blood pressure disposition: Did not require urgent referral Consults Time Called: 911 Consulting Physician: Dr. Ann [facility] Hospitalist Returned Call: [phone] I discussed the patient's case with Dr. Ann [facility] Hospitalist. The patient will be evaluated for further management. Impression Primary Impression: Altered mental status Additional Impressions: UTI (urinary tract infection) Fever Scribe Attestation The scribe's documentation has been prepared under my direction and personally reviewed by me in its entirety. I confirm that the note above accurately reflects all work, treatment, procedures, and medical decision making performed by me. Departure Information Dispostion Being Evaluated By Hospitalist (Dr. Ann [facility] Hospitalist) Referrals [place] (PCP) Problem Qualifiers Primary Impression: Altered mental status Altered mental status type: unspecified Qualified Codes: R41.82 - Altered mental status, unspecified Additional Impressions: UTI (urinary tract infection) Urinary tract infection type: site unspecified Hematuria presence: without hematuria Qualified Codes: N39.0 - Urinary tract infection, site not specified Fever Fever type: unspecified Qualified Codes: R50.9 - Fever, unspecified
[2017-06-23 08:18] LABS: HEMATOCRIT 37.1 % (37-47); HEMOGLOBIN 12.5 g/dL (12.0-16.0); MEAN CELL VOLUME 87.3 fL (80-100); MEAN CORPUSCULAR HEMOGLOBIN 29.4 pg (25-34); MEAN CORPUSCULAR HGB CONC 33.7 g/dl (32-36); RED CELL DISTRIBUTION WIDTH CV 15.6 % (11.5-14.5); RED CELL DISTRIBUTION WIDTH SD 50.2 fL (36.4-46.3); WHITE BLOOD COUNT 9.63 K/uL (4.8-10.8)
[2017-06-23] MEDS ORDERED: ACET650S10 PR (08:18)
[2017-06-23] MEDS ORDERED: VLT50 PO (08:24)
[2017-06-23] MEDS ORDERED: LINICRE61 TOP (08:24)
[2017-06-23] MEDS ORDERED: BISA10SU3 PR (08:27)
[2017-06-23] MEDS ORDERED: DIVA125C8 PO (08:27)
[2017-06-23] MEDS ORDERED: HALO5TAB PO (08:29)
[2017-06-23 08:30] LABS: PTT PATIENT 19.9 SECONDS (21.0-31.0)
[2017-06-23] MEDS ORDERED: INSU100I SQ (08:32)
[2017-06-23 08:35] LABS: ALBUMIN 2.8 gm/dl (3.4-5.0); CALCIUM 8.6 mg/dl (8.5-10.1); CREATININE 1.03 mg/dl (0.60-1.20); POTASSIUM 4.1 mmol/L (3.5-5.1)
[2017-06-23] MEDS ORDERED: NITR1CAP16 PO (08:35)
[2017-06-23] MEDS ORDERED: MAGNESIUM SULFATE 1GM / D5W 1 GM BAG IV STA (08:36)
[2017-06-23 08:38] LABS: CKMB 0.7 ng/ml (0.5-3.6); TOTAL PROTEIN 6.3 gm/dl (6.4-8.2)
[2017-06-23] MEDS ORDERED: METO-551 PO (08:39)
[2017-06-23] MEDS ORDERED: [UNRECOGNIZED DRUG - CODE] PO (08:39)
[2017-06-23] MEDS ORDERED: POTA-65 PO (08:39)
[2017-06-23 08:41] LABS: BASO % 0.1 %; BASO ABS # 0.01 K/uL (0-0.2); IG# 0.02 K/uL (0.00-0.02); LYMPH % 2.3 %; LYMPH ABS # 0.22 K/uL (1.2-3.4); MEAN PLATELET VOLUME 10.7 fL (7.4-10.4); MONO % 6.2 %; NEUT % 91.2 %; NEUT ABS # 8.78 K/uL (1.4-6.5); PLATELET COUNT 89 K/uL (130-400)
[2017-06-23] MEDS ORDERED: LEVAQUIN 750MG / 150ML D5W IV STA (09:03)
--- NOTE | 2017-06-23 09:03 | DIAGNOSTIC IMAGING REPORT ---
CHEST ONE VIEW PORTABLE HISTORY: 72 years-old Female Sepsis acute sepsis COMPARISON: Chest radiograph 12/04/2013 TECHNIQUE: Portable AP view of the chest FINDINGS: Patient is slightly rotated to the left. Cardiomediastinal and hilar silhouettes are within normal limits. No pneumothorax, pleural effusion, lobar airspace consolidation or overt pulmonary edema. Minimal subsegmental left basilar opacities suggest atelectasis. Degenerative changes of the shoulders and spine. IMPRESSION: No acute process. The above report was generated using voice recognition software. It may contain grammatical, syntax or spelling errors. Electronically signed by: Eric Oconnor M.D. 06/23/2017 9:01 AM Dictated Date/Time: 06/23/2017 9:00 AM
[2017-06-23 09:41] LABS: INFLUENZA A PCR Neg for Influ A (NEG); INFLUENZA B PCR Neg for Influ B (NEG)
[2017-06-23] MEDS ORDERED: ALBUTEROL 0.083% NEBU SOLN 3 ML VIAL INH PRN (10:00)
[2017-06-23] MEDS ORDERED: ACETAMINOPHEN 325 MG TAB PO PRN (10:00)
[2017-06-23] MEDS ORDERED: HALOPERIDOL 5 MG TAB PO PRN (10:00)
[2017-06-23] MEDS ORDERED: DIVALPROEX SODIUM SPRINKLE 125 MG CAP PO PRN (10:00)
[2017-06-23] MEDS ORDERED: ONDANSETRON INJ 2 MG/ML 2 ML VIAL IV PRN (10:00)
[2017-06-23] MEDS ORDERED: BISACODYL 10 MG SUPP PR PRN (10:00)
[2017-06-23] MEDS ORDERED: [UNRECOGNIZED DRUG - OTHER] PO PRN (10:00)
[2017-06-23] MEDS ORDERED: NITROGLYCERIN 0.4 MG SL PER TAB CHARGE SL PRN (10:00)
[2017-06-23] MEDS ORDERED: ONDANSETRON 4 MG TAB PO PRN (10:00)
[2017-06-23] MEDS ORDERED: POLYETHYLENE (MIRALAX) 17 GM PACK PO PRN (10:00)
[2017-06-23] MEDS ORDERED: ACETAMINOPHEN 650 MG SUPP PR PRN (10:00)
--- NOTE | 2017-06-23 10:51 | History and Physical ---
History & Physical Date & Time of Service: June 23, 2017 at 10:33 Chief Complaint: Fever/Illness Primary Care Physician: Geovanna Desouza History of Present Illness Patient presented from [facility] with tachycardia and fever with chills she has baseline mental impairment with multiple sclerosis and previous psychosis. In the ER is felt that she has SIRS from UTI present on admission. She is given IV fluids magnesium and levofloxacin Upon my evaluation of the patient she shook her head when I asked her if she wanted to stay in the hospital however she does have mental impairment and baseline psychotic history. Attempt to call her family listed in the chart I phoned both numbers both were met with no answer. I then spoke with medical malpractice paralegal at the long-term facility and he informed me that there was no polst form on the chart, and there is not been any family decision about rendering comfort care if she were to become more ill subsequently I made a decision to keep the patient in our facility despite her disagreement to treat her urinary tract infection present on admission, augment her hypomagnesemia, attend to her diabetes and to continue her other medications for her mental health. Past Medical/Surgical History Medical Problems: (1) Acute paranoia (2) Acute psychosis (3) Altered mental status (4) Atrial fibrillation (5) Back pain (6) bipolar disorder by history, with psychosis (7) Breast cancer (8) Chronic urinary tract infection (9) COPD (chronic obstructive pulmonary disease) (10) Diabetes mellitus (11) DKA (diabetic ketoacidosis) (12) Dyslipidemia (13) fibromyalgia (14) GERD (gastroesophageal reflux disease) (15) Hernia of bladder (16) Herniated disc (17) Hx of TIA (transient ischemic attack) and stroke (18) Hyperglycemia (19) Hypertension (20) Hyponatremia (21) Hypothyroidism (22) Hypoxia (23) Jun (24) Multiple sclerosis (25) Respiratory acidosis (26) Respiratory acidosis (27) SIRS (systemic inflammatory response syndrome) (28) UTI (urinary tract infection) Family History No pertinent family history Social History Smoking Status: Never Smoker Smokeless Tobacco Use: Unknown Marital Status: Occupational Status: retired Immunizations History of Influenza Vaccine: N/A Influenza Vaccine Date: Dec 08, 2011 History of Tetanus Vaccine?: Unknown Tetanus Immunization Date: May 07, 2010 History of Pneumococcal: Unknown Pneumococcal Date: May 07, 2010 History of Hepatitis B Vaccine: Unknown Allergies Coded Allergies: Adhesives (Verified Allergy, Unknown, unknown, 06/23/17) Amitriptyline (Verified Allergy, Unknown, unknown, 06/23/17) Amoxicillin (Verified Allergy, Unknown, unknown, 06/23/17) Baclofen (Verified Allergy, Unknown, unknown, 06/23/17) Benzalkonium Chloride (Verified Allergy, Unknown, UNKNOWN, 06/23/17) Benzocaine (Verified Allergy, Unknown, UNKNOWN, 06/23/17) Erythromycin (Verified Allergy, Unknown, unknown, 06/23/17) Gabapentin (Unverified Allergy, Unknown, UNKNOWN, 06/23/17) Isoflurane (Verified Allergy, Unknown, unknown, 06/23/17) Lanolin (Verified Allergy, Unknown, unknown, 06/23/17) Latex (Verified Allergy, Unknown, unknown, 06/23/17) Nitrofurantoin (Verified Allergy, Unknown, unknown, 06/23/17) Oxycodone (Verified Allergy, Unknown, unknown, 06/23/17) PATIENT TOLERATES MORPHINE Penicillins (Verified Allergy, Unknown, unknown, 06/23/17) Pregabalin (Unverified Allergy, Unknown, UNKNOWN, 06/23/17) Procaine (Verified Allergy, Unknown, unknown, 06/23/17) Promethazine (Verified Allergy, Unknown, unknown, 06/23/17) Propoxyphene (Verified Allergy, Unknown, unknown, 06/23/17) Sulfa Antibiotics (Verified Allergy, Unknown, CAN TAKE LASIX, 06/23/17) Sulfamethoxazole w/Trimethoprim (Verified Allergy, Unknown, unknown, ) Zinc (Verified Allergy, Unknown, UNKNOWN, 06/23/17) Prednisone (Verified Adverse Reaction, Unknown, UNKNOWN, 06/23/17) Home Medications Scheduled Artificial Tear Solution (Artificial Tears), 1 DROPS OPB HS Aspirin (Aspirin Chewable), 81 MG PO QAM Bisacodyl (Dulcolax), 10 MG AL Q2D Carboxymethylcellulose-Glyceri (Refresh Optive 1-0.9 %), 1 DROP OPB BID Cyanocobalamin (Vitamin B-12), 1,000 MCG PO DAILY Famotidine (Pepcid), 20 MG PO BID Furosemide (Lasix), 20 MG PO QAM Insulin Detemir (Levemir), 90 UNITS SC HS Insulin Lispro (Human) (Humalog), 20 UNITS SC AC Insulin Lispro (Human) (Humalog), 1 DOSE SQ UD Levothyroxine Sodium (Levothyroxine Sodium), 50 MCG PO QAM Menthol-Methyl Salicylate (Marissa (Bengay Greaseless), 1 APPLN TOP TID Metformin Hcl (Glucophage), 500 MG PO BIDM Metoprolol Tartrate (Lopressor), 50 MG PO BID Mouthwashes (Biotene Dry Mouth Oral Ri), 1 SPRAY PO TID Potassium Chloride (Potassium Chloride ER), 20 MEQ PO QAM Probiotic Product (Acidophilus), 1 CAP PO HS Saline ([place] Nasal [place]), 1 SPRAY LITA HS Sennosides-Docusate Sodium (Senna Plus), 1 TABS PO TID Simvastatin (Zocor), 40 MG PO QPM Umeclidinium-Vilanterol (Anoro Ellipta 62.5-25 Mcg/INH), 1 PUFF INH DAILY Venlafaxine Hcl (Venlafaxine Hcl Er), 1 TAB PO QAM Scheduled PRN Acetaminophen (Tylenol), 650 MG AL Q12 PRN for Pain or Fever Albuterol Sulf (Proventil 0.083% 2.5MG/3ML), 2.5 MG INH Q4H PRN for SOB/Wheezing Artificial Tear Solution (Artificial Tears), 1 DROPS OPB Q8 PRN for DRYNESS Diclofenac Sod (Diclofenac Sodium Dr), 50 MG PO TID PRN for Pain Dimethicone-Petrolatum ([place] Ultimate Diabet 3-30 %), 1 APPLN TOP TID PRN for DRY SKIN Divalproex Sodium (Depakote Sprinkles), 125 MG PO TID PRN for MOOD SWINGS Haloperidol (Haldol), 5 MG PO HS PRN for PSYCHOSIS Morphine Sulfate (Morphine Sulfate ER), 60 MG PO TID PRN for Pain Mouthwashes (Biotene Dry Mouth Oral Ri), 1 SPRAY PO Q4 PRN for dry mouth Nitrofurantoin Monohyd Macro (Macrobid), 100 MG PO BID PRN for UTI Ondansetron Hcl (Zofran), 4 MG PO Q8H PRN for Nausea Tramadol (Ultram), 50 MG PO Q6 PRN for Pain Review of Systems Constitutional: + fever, + chills, + weakness, + fatigue Respiratory: No cough, No sputum, No wheezing, No shortness of breath Cardiovascular: No chest pain, No orthopnea, No PND, No edema Abdomen: No pain, No nausea, No diarrhea Musculoskeletal: No joint pain, No muscle pain, No swelling Neurologic: + memory loss, + paralysis, + weakness, + numbness/tingling Psychiatric: + depression symptoms, + anxiety, No anhedonism Endocrine: No fatigue Physical Exam Vital Signs Date Time Temp Pulse Resp B/P (MAP) Pulse Ox O2 Delivery O2 Flow Rate FiO2 06/23/17 10:05 37.3 118 20 116/67 94 Nasal Cannula 3.0 06/23/17 09:53 96 Nasal Cannula 3.0 06/23/17 08:34 122 22 127/68 96 Nasal Cannula 3.0 06/23/17 08:32 96 Nasal Cannula 3.0 06/23/17 08:10 132 06/23/17 07:41 38.5 127 24 141/78 92 Room Air General Appearance: WD/WN, + moderate distress Head: normocephalic, + pertinent finding (facial droop to right) Eyes: normal inspection, sclerae normal Neck: supple, no JVD Respiratory/Chest: chest non-tender, lungs clear, normal breath sounds Cardiovascular: regular rate, rhythm, no murmur Abdomen/GI: normal bowel sounds, non tender, soft Back: no CVA tenderness Extremities/Musculoskelatal: + pedal edema, + swelling Neurologic/Psych: alert, + facial droop, + motor weakness Skin: normal color, no rash Diagnostics Laboratory Results Results Past 24 Hours Test 06/23/17 07:55 06/23/17 08:15 06/23/17 08:17 06/23/17 08:18 Range/Units White Blood Count 9.63 4.8-10.8 K/uL Red Blood Count 4.25 4.2-5.4 M/uL Hemoglobin 12.5 12.0-16.0 g/dL Hematocrit 37.1 37-47 % Mean Corpuscular Volume 87.3 80-100 fL Mean Corpuscular Hemoglobin 29.4 25-34 pg Mean Corpuscular Hemoglobin Concent 33.7 32-36 g/dl Platelet Count 89 130-400 K/uL Mean Platelet Volume 10.7 7.4-10.4 fL Neutrophils (%) (Auto) 91.2 % Lymphocytes (%) (Auto) 2.3 % Monocytes (%) (Auto) 6.2 % Eosinophils (%) (Auto) 0.0 % Basophils (%) (Auto) 0.1 % Neutrophils # (Auto) 8.78 1.4-6.5 K/uL Lymphocytes # (Auto) 0.22 1.2-3.4 K/uL Monocytes # (Auto) 0.60 0.11-0.59 K/uL Eosinophils # (Auto) 0.00 0-0.5 K/uL Basophils # (Auto) 0.01 0-0.2 K/uL RDW Standard Deviation 50.2 36.4-46.3 fL RDW Coefficient of Variation 15.6 11.5-14.5 % Immature Granulocyte % (Auto) 0.2 % Immature Granulocyte # (Auto) 0.02 0.00-0.02 K/uL Platelet Estimate DECREASED Erythrocyte Sedimentation Rate 29 0-21 mm/hr Prothrombin Time 10.8 9.0-12.0 SECONDS Prothromb Time International Ratio 1.0 0.9-1.1 Activated Partial Thromboplast Time 19.9 21.0-31.0 SECONDS Partial Thromboplastin Ratio 0.8 Sodium Level 135 136-145 mmol/L Potassium Level 4.1 3.5-5.1 mmol/L Chloride Level 98 98-107 mmol/L Carbon Dioxide Level 29 21-32 mmol/L Anion Gap 8.0 3-11 mmol/L Blood Urea Nitrogen 16 7-18 mg/dl Creatinine 1.03 0.60-1.20 mg/dl Est Creatinine Clear Calc Drug Dose 62.5 ml/min Estimated GFR () 63.3 Estimated GFR (Non- 54.6 BUN/Creatinine Ratio 15.6 10-20 Random Glucose 325 70-99 mg/dl Calcium Level 8.6 8.5-10.1 mg/dl Phosphorus Level 3.0 2.5-4.9 mg/dl Magnesium Level 1.4 1.8-2.4 mg/dl Total Bilirubin 0.4 0.2-1 mg/dl Aspartate Amino Transf (AST/SGOT) 12 15-37 U/L Alanine Aminotransferase (ALT/SGPT) 18 12-78 U/L Alkaline Phosphatase 102 45-117 U/L Total Creatine Kinase 73 26-192 U/L Creatine Kinase MB 0.7 0.5-3.6 ng/ml Creatine Kinase MB Ratio 1.0 0-3.0 Troponin I 0.062 0-0.045 ng/ml C-Reactive Protein 9.98 0-0.29 mg/dl Pro-B-Type Natriuretic Peptide 2926 0-900 pg/ml Total Protein 6.3 6.4-8.2 gm/dl Albumin 2.8 3.4-5.0 gm/dl Globulin 3.5 2.5-4.0 gm/dl Albumin/Globulin Ratio 0.8 0.9-2 Lipase 131 73-393 U/L Beta-Hydroxybutyric Acid 2.25 0.2-2.81 mg/dL Valproic Acid (Depakene) Level 27 50-100 mcg/ml Influenza Type A (RT-PCR) Neg for Influ A NEG Influenza Type B (RT-PCR) Neg for Influ B NEG Bedside Lactic Acid Venous 4.63 0.90-1.70 mmol/L Venous Blood pH 7.37 7.36-7.41 Venous Blood Partial Pressure CO2 44 38.0-50.0 mmHg Venous Blood Partial Pressure O2 37 mmHg Venous Blood HCO3 25 mmol/L Venous Blood Oxygen Saturation 67.4 % Venous Blood Base Excess -0.6 mEq/L Ammonia < 10.0 11-32 umol/L Test 06/23/17 08:25 06/23/17 09:59 Range/Units Urine Color DK YELLOW Urine Appearance CLOUDY CLEAR Urine pH 6.0 4.5-7.5 Urine Specific [place] 1.019 1.000-1.030 Urine Protein 2+ NEG Urine Glucose (UA) 2+ NEG Urine Ketones 1+ NEG Urine Occult Blood NEG NEG Urine Nitrite NEG NEG Urine Bilirubin NEG NEG Urine Urobilinogen NEG NEG Urine Leukocyte Esterase MODERATE NEG Urine WBC (Auto) >30 0-5 /hpf Urine RBC (Auto) 0-4 0-4 /hpf Urine Hyaline Casts (Auto) 1-5 0-5 /lpf Urine Epithelial Cells (Auto) 10-20 0-5 /lpf Urine Bacteria (Auto) NEG NEG Urine Renal Epithelial Cells 0-5 /lpf Microbiology Results 06/23/17 Blood Culture, Received Pending 06/23/17 Blood Culture, Received Pending 06/23/17 Urine Culture, Received Pending CXR normal other (sinus tachycardia) Impression Assessment and Plan 72 F here from snf, previously DNR has baseline psychosis, states she does not want to be admitted, attempts to contact family met with no answer, discussion with [facility] medical malpractice paralegal finds that the family had not made a decision about comfort measures or POLST form, positive care consultation will be undertaken during this admission to determine if the patient and family wishes would prevent further admissions in the future SIRS from urinary source present on admission, PT was given levaquin in the ER and will continue, blood and urine cutlures DM, this places her at increased risk of infection, hold metformin, levimir and ssi, diabetic diet Tachycardia, from SIRS, will be hydrated, continue metoprolol Psychisos previous jun, maintain effexor, cymbalta, check depakote level constipation amitiza and linzess lovenox Advanced Directives Existing Living Will: Yes Existing Power of Strip Mill Operator: No Resuscitation Status VTE Prophylaxis Will order VTE Prophylaxis: Yes
[2017-06-23] MEDS: SODIUM CHLORIDE 0.9% 1000ML 1,000 ML IV SCH ×2 (12:00→20:24)
[2017-06-23] MEDS ORDERED: ARTIFICIAL TEARS OP SOLN OPB PRN (12:30)
[2017-06-23] MEDS ORDERED: GLUCAGON FOR INJ 1 MG VIAL IM PRN (12:45)
[2017-06-23] MEDS ORDERED: CARBOHYDRATES FOR HYPOGLYCEMIA PO PRN (12:45)
[2017-06-23] MEDS ORDERED: GLUCOSE 10 TABS/TUBE PO PRN (12:45)
[2017-06-23] MEDS ORDERED: GLUCOSE 40% GEL 15 GM TUBE PO PRN (12:45)
[2017-06-23] MEDS ORDERED: DEXTROSE 50% 50 ML SYR IV PRN (12:45)
[2017-06-23] MEDS: INSULIN ASPART 100 UNITS/ML 3 ML PEN SC SCH ×5 (13:39→20:26)
[2017-06-23] MEDS: DOCUSATE SODIUM/SENNA 50/8.6MG TAB PO SCH ×2 (13:40→21:00)
[2017-06-23] MEDS: ENOXAPARIN 40 MG/0.4 ML SYR SC SCH (13:57)
[2017-06-23] MEDS ORDERED: NURSING VERBAL MED ORDER ONE (16:30)
[2017-06-23] MEDS: SODIUM CHLORIDE 0.65% NA SOLN 45 ML (OCEAN) NAE SCH (20:24)
[2017-06-23] MEDS: INSULIN DETEMIR FLEXPEN/FLEX TOUCH 100 UNITS/ML 3ML SC SCH (20:28)
[2017-06-23] MEDS ORDERED: METOPROLOL TARTRATE 1 MG/ML VIAL IV STA (20:47)
[2017-06-23] MEDS: FAMOTIDINE 20 MG TAB PO SCH (21:00)
[2017-06-23] MEDS: ARTIFICIAL TEARS OP SOLN OPB SCH ×2 (21:00)
[2017-06-23] MEDS: SIMVASTATIN 40 MG TAB PO SCH (21:00)
[2017-06-23] MEDS: METOPROLOL TARTRATE 50 MG TAB PO SCH (21:00)
[2017-06-23] MEDS: LACTOBACILLUS ACIDOPHILUS (FLORANEX) TAB PO SCH (21:00)
[2017-06-23] MEDS ORDERED: INSULIN DETEMIR FLEXPEN/FLEX TOUCH 100 UNITS/ML 3ML SC SCH (21:00)
[2017-06-23] MEDS: MoRPHine SULFATE 2 MG/ML CARP IV PRN (22:18)
[2017-06-24] VITALS (7 sets, daily range): BP systolic 136–189; BP diastolic 78–114; PULSE 82–116; TEMP 36.5–37.2; O2SAT 92–97; Ht 170.2 cm; Wt 76.5 kg
[2017-06-24] MEDS: TRAMADOL HCL 50 MG TAB PO PRN ×2 (00:06→22:52)
[2017-06-24] MEDS: MoRPHine SULFATE 2 MG/ML CARP IV PRN ×3 (00:06→23:55)
[2017-06-24] MEDS: LEVOTHYROXINE 50 MCG TAB PO SCH (06:00)
[2017-06-24] MEDS: SODIUM CHLORIDE 0.9% 1000ML 1,000 ML IV SCH ×2 (06:35→16:29)
[2017-06-24 07:18] LABS: HEMATOCRIT 35.1 % (37-47); HEMOGLOBIN 11.6 g/dL (12.0-16.0); MEAN CELL VOLUME 87.8 fL (80-100); RED CELL DISTRIBUTION WIDTH CV 15.9 % (11.5-14.5); RED CELL DISTRIBUTION WIDTH SD 51.4 fL (36.4-46.3); WHITE BLOOD COUNT 6.59 K/uL (4.8-10.8)
[2017-06-24 07:24] LABS: MEAN PLATELET VOLUME 9.5 fL (7.4-10.4); PLATELET COUNT 92 K/uL (130-400)
[2017-06-24 07:45] LABS: CALCIUM 8.6 mg/dl (8.5-10.1); CREATININE 0.76 mg/dl (0.60-1.20); POTASSIUM 4.1 mmol/L (3.5-5.1)
--- NOTE | 2017-06-24 08:32 | Palliative Care Consultation ---
Consultation Date of Consultation: June 24, 2017. Requesting Physician: Dr. Carolina Attending Physician: Dr. Barragan Reason for Consultation: Goals of Care / POLST History of Present Illness This patient is a 72 year old Female who is DNR was transferred to the ED from [facility] for tachycardia, fever and chills. The patient has a PMH of bipolar disorder with psychosis, MS, TIA, COPD, facial drooping. She is currently being treated for a UTI with Levaquin and IV fluids. Upon assessment, the patient is calm, lying in her bed. She was appropriate when answering questions regarding where she is and why she was here. She kept saying that 'it heredia around that tube' referring to the Fitzgerald catheter. She was able to tell me that she was at the hospital and came in for a UTI - she also stated that she lives at [facility] in a private room. The patient does have a daughter Camille, who lives in [place]. Prior to discharge back to [facility], it would be a good idea to discuss GOALS OF CARE and complete a POLST form for the staff at [facility] to keep on file. The attending physician attempted to call the daughter on admission without success. I phoned her as well at the following numbers: [phone] (NO ANSWER ) and [phone] (LEFT VM). Thank you kindly for involving us in the care and discharge planning for this patient. Past Medical/Surgical History Medical History: Bipolar disorder with Psychosis UTI MS COPD Social History Smoking Status: Never Smoker History of Alcohol Use: No Marital Status: Occupation Status: retired Review of Systems Eyes: + problem reported (Pt denies visual changes ) ENT: + problem reported (Pt states it is harder for her to eat lately - no coughing with swallowing. Pt denies BATES, dizziness) Respiratory: + problem reported (Patient denies SOB) Cardiac: + problem reported (Pt denies palpitations) Abdomen: + problem reported (Pt denies abdominal pain) Musculoskeletal: + problem reported (Pt states it is harder for her to walk) Female : + problem reported (Pt has burning around catheter site) Neurologic: + problem reported (Pt denies insomnia) Psychiatric: + problem reported (patient with psych history - appears at baseline) Skin: + problem reported (pt denies skin changes) Allergies Coded Allergies: Adhesives (Verified Allergy, Unknown, unknown, 06/23/17) Amitriptyline (Verified Allergy, Unknown, unknown, 06/23/17) Amoxicillin (Verified Allergy, Unknown, unknown, 06/23/17) Baclofen (Verified Allergy, Unknown, unknown, 06/23/17) Benzalkonium Chloride (Verified Allergy, Unknown, UNKNOWN, 06/23/17) Benzocaine (Verified Allergy, Unknown, UNKNOWN, 06/23/17) Erythromycin (Verified Allergy, Unknown, unknown, 06/23/17) Gabapentin (Unverified Allergy, Unknown, UNKNOWN, 06/23/17) Isoflurane (Verified Allergy, Unknown, unknown, 06/23/17) Lanolin (Verified Allergy, Unknown, unknown, 06/23/17) Latex (Verified Allergy, Unknown, unknown, 06/23/17) Nitrofurantoin (Verified Allergy, Unknown, unknown, 06/23/17) Oxycodone (Verified Allergy, Unknown, unknown, 06/23/17) PATIENT TOLERATES MORPHINE Penicillins (Verified Allergy, Unknown, unknown, 06/23/17) Pregabalin (Unverified Allergy, Unknown, UNKNOWN, 06/23/17) Procaine (Verified Allergy, Unknown, unknown, 06/23/17) Promethazine (Verified Allergy, Unknown, unknown, 06/23/17) Propoxyphene (Verified Allergy, Unknown, unknown, 06/23/17) Sulfa Antibiotics (Verified Allergy, Unknown, CAN TAKE LASIX, 06/23/17) Sulfamethoxazole w/Trimethoprim (Verified Allergy, Unknown, unknown, ) Zinc (Verified Allergy, Unknown, UNKNOWN, 06/23/17) Prednisone (Verified Adverse Reaction, Unknown, UNKNOWN, 06/23/17) Medications Current Inpatient Medications Medications (Trade) Dose Ordered Sig/[place] Route Start Time Stop Time Status Last Admin Dose Admin Acetaminophen (Tylenol Supp) 650 mg Q12 PRN MN 06/23/17 10:00 07/23/17 09:59 Albuterol Sulfate (Ventolin 0.083% 2.5MG/3ML Neb) 2.5 mg Q4H PRN INH 06/23/17 10:00 07/23/17 09:59 Aspirin (Ecotrin Tab) 81 mg QAM PO 06/24/17 09:00 07/24/17 08:59 Bisacodyl (Dulcolax Supp) 10 mg Q2D PRN MN 06/23/17 10:00 07/23/17 09:59 Cyanocobalamin (Vitamin B-12 Tab) 1,000 mcg DAILY PO 06/24/17 09:00 07/24/17 08:59 Divalproex Sodium (Depakote Sprinkle Cap) 125 mg TID PRN PO 06/23/17 10:00 07/23/17 09:59 Famotidine (Pepcid Tab) 20 mg BID PO 06/23/17 21:00 07/23/17 20:59 Haloperidol (Haldol Tab) 5 mg HS PRN PO 06/23/17 10:00 07/23/17 09:59 Insulin Aspart (novoLOG ASPART) 20 units AC SC 06/23/17 12:45 07/23/17 12:44 06/23/17 16:45 20 UNITS Levothyroxine Sodium (Synthroid Tab) 50 mcg DAILYBB PO 06/24/17 06:00 07/24/17 05:59 Metoprolol Tartrate (Lopressor Tab) 50 mg BID PO 06/23/17 21:00 07/23/17 20:59 Ondansetron HCl (Zofran Tab) 4 mg Q8H PRN PO 06/23/17 10:00 07/23/17 09:59 Sodium Chloride ([place] Nasal [place]) 2 sprays HS LITA 06/23/17 21:00 07/23/17 20:59 Senna/Docusate Sodium (Senokot S Tab) 1 tab TID PO 06/23/17 14:00 07/23/17 13:59 Simvastatin (Zocor Tab) 40 mg QPM PO 06/23/17 21:00 07/23/17 20:59 Tramadol HCl (Ultram Tab) 50 mg Q6 PRN PO 06/23/17 10:00 07/23/17 09:59 06/24/17 00:06 50 MG Venlafaxine HCl (effeXOR EXTENDED REL CAP) 150 mg QAM PO 06/24/17 09:00 07/24/17 08:59 Artificial Tears (Artificial Tears) 1 drops HS OPB 06/23/17 21:00 07/23/17 20:59 06/23/17 21:00 1 DROPS Artificial Tears (Artificial Tears) 1 drops Q8H PRN OPB 06/23/17 12:30 07/23/17 12:29 Artificial Tears (Artificial Tears) 1 drops BID OPB 06/23/17 21:00 07/23/17 20:59 Potassium Chloride (Klor-Con Tab) 20 meq QAM PO 06/24/17 09:00 07/24/17 08:59 Lactobacillus Acidophilus (Floranex Tab) 4 tab HS PO 06/23/17 21:00 07/23/17 20:59 Levofloxacin 500 mg/Prmx 100 ml @ 100 mls/hr Q24H IV 06/24/17 10:00 07/03/17 09:59 Insulin Aspart (novoLOG ASPART) SLIDING SCALE PARAMETER ACHS SC 06/23/17 16:15 07/23/17 16:14 06/23/17 16:44 4 UNITS Morphine Sulfate (MoRPHine SULFATE INJ) 4 mg Q4H PRN IV 06/23/17 10:00 07/07/17 09:59 Morphine Sulfate (MoRPHine SULFATE INJ) 2 mg Q4H PRN IV 06/23/17 10:00 07/07/17 09:59 06/24/17 00:06 2 MG Enoxaparin Sodium (Lovenox Inj) 40 mg Q24H SC 06/23/17 14:00 07/23/17 13:59 06/23/17 13:57 40 MG Sodium Chloride 1,000 ml @ 100 mls/hr Q10H IV 06/23/17 09:59 07/23/17 09:58 06/24/17 06:35 100 MLS/HR Acetaminophen (Tylenol Tab) 650 mg Q4H PRN PO 06/23/17 10:00 07/23/17 09:59 Ondansetron HCl (Zofran Inj) 4 mg Q6H PRN IV 06/23/17 10:00 07/23/17 09:59 Nitroglycerin (Nitrostat Tab) 0.4 mg UD PRN SL 06/23/17 10:00 07/23/17 09:59 Polyethylene (Miralax Powder Packet) 17 gm DAILY PRN PO 06/23/17 10:00 07/23/17 09:59 Insulin Detemir (Levemir Flexpen/ FlexTouch) 30 units HS SC 06/23/17 21:00 07/23/17 20:59 06/23/17 20:28 30 UNITS Glucose (Glucose 40% Gel) 15-30 GRAMS 15 GRAMS... UD PRN PO 06/23/17 12:45 07/23/17 12:44 Glucose (Glucose Chew Tab) 4-8 Tablets 4 Tabl... UD PRN PO 06/23/17 12:45 07/23/17 12:44 Dextrose (Dextrose 50% 50ML Syringe) 25-50ML 25ML FOR ... UD PRN IV 06/23/17 12:45 07/23/17 12:44 Glucagon (Glucagon Inj) 1 mg UD PRN IM 06/23/17 12:45 07/23/17 12:44 Carbohydrates (Carbohydrates For Hypoglycemia) 15-30 GRAMS 15 grams if BSG 54-69... UD PRN PO 06/23/17 12:45 07/23/17 12:44 Physical Exam Date Time Temp Pulse Resp B/P (MAP) Pulse Ox O2 Delivery O2 Flow Rate FiO2 06/24/17 07:20 36.8 116 16 170/80 (110) 92 Room Air 06/24/17 04:00 92 Nasal Cannula 3.0 06/24/17 04:00 114 22 92 Room Air 06/24/17 00:01 92 Nasal Cannula 3.0 06/23/17 23:31 37.3 117 18 161/87 (111) 93 Room Air 06/23/17 21:12 141 135/76 06/23/17 20:00 91 Room Air 06/23/17 19:03 37.3 122 19 127/60 (82) 91 Room Air 06/23/17 16:00 100 Room Air 4.0 06/23/17 15:35 37.2 114 21 127/71 (89) 100 Nasal Cannula 4.0 06/23/17 12:00 95 Nasal Cannula 3.0 06/23/17 11:12 37.1 127 18 128/70 (89) 97 Nasal Cannula 3.0 06/23/17 10:44 37.3 122 20 122/70 94 06/23/17 10:05 37.3 118 20 116/67 94 Nasal Cannula 3.0 06/23/17 09:53 96 Nasal Cannula 3.0 06/23/17 08:34 122 22 127/68 96 Nasal Cannula 3.0 06/23/17 08:32 96 Nasal Cannula 3.0 General Appearance: no apparent distress, + pertinent finding (Pt sitting up in the bed without any visible distress) Respiratory: lungs clear, normal breath sounds, no respiratory distress, no accessory muscle use Cardiovascular: + tachycardia (110-115) Abdomen: normal bowel sounds, non tender, soft Musculoskeletal: pertinent finding (B/L UE 4/5) Neurologic/Psychiatric: + pertinent finding (Patient oriented to self, location and situation - That being said, would like to speak with family re: GOALS OF CARE as I do not think the patient has the capacity to comment on the complexity of the POLST form) Laboratory Results Last 24 Hours Test 06/23/17 10:47 06/23/17 11:27 06/23/17 13:36 06/23/17 15:59 Valproic Acid (Depakene) Level 22 mcg/ml Bedside Glucose 296 mg/dl 268 mg/dl Troponin I 0.062 ng/ml Test 06/23/17 16:35 06/23/17 20:11 06/23/17 21:53 06/24/17 07:05 Bedside Glucose 229 mg/dl 142 mg/dl Troponin I 0.051 ng/ml 0.032 ng/ml White Blood Count 6.59 K/uL Red Blood Count 4.00 M/uL Hemoglobin 11.6 g/dL Hematocrit 35.1 % Mean Corpuscular Volume 87.8 fL Mean Corpuscular Hemoglobin 29.0 pg Mean Corpuscular Hemoglobin Concent 33.0 g/dl RDW Standard Deviation 51.4 fL RDW Coefficient of Variation 15.9 % Platelet Count 92 K/uL Mean Platelet Volume 9.5 fL Sodium Level 140 mmol/L Potassium Level 4.1 mmol/L Chloride Level 108 mmol/L Carbon Dioxide Level 29 mmol/L Anion Gap 3.0 mmol/L Blood Urea Nitrogen 11 mg/dl Creatinine 0.76 mg/dl Est Creatinine Clear Calc Drug Dose 82.2 ml/min Estimated GFR () 91.5 Estimated GFR (Non- 78.9 BUN/Creatinine Ratio 15.1 Random Glucose 183 mg/dl Calcium Level 8.6 mg/dl Magnesium Level 2.0 mg/dl Test 06/24/17 07:24 Bedside Glucose 158 mg/dl Assessment & Plan Palliative Performance Scale: 60 % Palliative Care Encounter Goals of Care Bipolar with psychosis TIA UTI Palliative Care Recommendations: -Continue supportive care for UTI - patient appears at baseline mental status -Continue to attempt reaching out to family to discuss GOALS OF CARE and complete a POLST form -Discuss with CM re: difficulty in reaching family Counseling and Coordination Total time spent 50 minutes with > 50% of that time assessing the patient at the bedside, reviewing the chart and previous admissions, and attempting to contact family
--- NOTE | 2017-06-24 08:40 | Clinical Documentation Query ---
CLINICAL DOCUMENTATION QUERY 72 year old female who presents to the Emergency Room with complaints of a fever. H&P is stating SIRS from urinary source. Since the christianity of ICD10 SIRS from urinary source simply codes to UTI. SIRS can only be captured when a noninfectious source is documented. Query #1/3 In your clinical opinion is this patient being managed for: (x ) Sepsis due to UTI e/b fever, tachycardia, hypoxia, AMS, and lactic acidosis treated with IVF boluses and IV Levofloxacin ( ) Not Agree ( ) Other explanation of clinical findings (Please Explain. If no explanation given, this would be considered a no response.) ( ) Unable to determine ( ) Need to Discuss (Please call CDS via extension or qliq. If no interaction occurs this is considered a no response.) The medical record reflects the following clinical findings, treatment, and risk factors. Clinical Indicators: Fever 3.85, tachycardia 127, hypoxia 90%, elevated serum lactic acid 4.63, +Troponin's, and AMS. Treatment: IVF boluses and IV Levofloxacin, UC, BCx2, Risk Factors: Age, UTI, Query #2/3 In your clinical opinion is this patient being managed for: ( x ) Metabolic encephalopathy ( ) Not Agree ( ) Other explanation of clinical findings (Please Explain. If no explanation given, this would be considered a no response.) ( ) Unable to determine ( ) Need to Discuss (Please call CDS via extension or qliq. If no interaction occurs this is considered a no response.) The medical record reflects the following clinical findings, treatment, and risk factors. Clinical Indicators: AMS, serum lactic acid 4.63, fever 38.5, Treatment: telemetry, O2, IV Levofloxacin, q4hr neurochecks, Risk Factors: Age, infection, Query #3/3 In your clinical opinion is this patient being managed for: ( ) Chronic HFpEF (Chronic diastolic CHF) ( ) Not Agree ( ) Other explanation of clinical findings (Please Explain. If no explanation given, this would be considered a no response.) ( x ) Unable to determine ( ) Need to Discuss (Please call CDS via extension or qliq. If no interaction occurs this is considered a no response.) The medical record reflects the following clinical findings, treatment, and risk factors. Clinical Indicators: Patient home lasix Treatment: telemetry, I/O's, daily weights Risk Factors: Age, diastolic dysfunction. Please clarify and document your clinical opinion in the progress notes and discharge summary. Terms such as "probable", "suspected", "likely", "questionable", "possible", or "still to be ruled out" are acceptable. IF IN AGREEMENT, YOU MUST DOCUMENT ABOVE DIAGNOSTIC STATEMENT IN DAILY PROGRESS NOTES AND DISCHARGE SUMMARY. This document is not part of the patient's record. Thank You, Ahsan Mcneal RN [phone] & via qlicCONNECT
[2017-06-24] MEDS: ARTIFICIAL TEARS OP SOLN OPB SCH ×3 (09:00→21:18)
[2017-06-24] MEDS: DOCUSATE SODIUM/SENNA 50/8.6MG TAB PO SCH ×3 (09:10→21:13)
[2017-06-24] MEDS: FAMOTIDINE 20 MG TAB PO SCH ×2 (09:10→21:13)
[2017-06-24] MEDS: VENLAFAXINE HCL XR 150 MG CAPXR PO SCH (09:10)
[2017-06-24] MEDS: ASPIRIN 81 MG ECTAB PO SCH (09:10)
[2017-06-24] MEDS: CYANOCOBALAMIN 500 MCG TAB (VIT B-12) PO SCH (09:10)
[2017-06-24] MEDS: METOPROLOL TARTRATE 50 MG TAB PO SCH ×2 (09:11→21:12)
[2017-06-24] MEDS: POTASSIUM CHLORIDE 20 MEQ TABCR PO SCH (09:11)
[2017-06-24] MEDS: INSULIN ASPART 100 UNITS/ML 3 ML PEN SC SCH ×7 (09:13→21:16)
[2017-06-24] MEDS ORDERED: LEVOFLOXACIN / D5W 500 MG in PREMIXED IN D5W 100 ML IV SCH (10:00)
[2017-06-24] MEDS: ENOXAPARIN 40 MG/0.4 ML SYR SC SCH (14:49)
--- NOTE | 2017-06-24 15:16 | Progress Note ---
Subjective Date of Service: June 24, 2017. Subjective Pt evaluation today including: conversation w/ patient Lilia reports generalized malaise. She states she has a chronic facial droop. She reports being bed bound. She states she had a discussion with palliative care and had polst form completed. I tried calling family with no avail. POLST FORM COMPLETED. Problem List Medical Problems: (1) Acute paranoia Status: Acute (2) Altered mental status Status: Acute (3) Back pain Status: Acute (4) DKA (diabetic ketoacidosis) Status: Acute (5) Hernia of bladder Status: Acute (6) Hyponatremia Status: Acute (7) UTI (urinary tract infection) Status: Acute (8) UTI (urinary tract infection) Status: Acute Review of Systems Constitutional: No fever, No chills Eyes: No eye pain ENT: No unusual epistaxis Respiratory: No dyspnea on exertion Cardiac: No chest pain Abdomen: No pain Neurologic: No memory loss Psychiatric: No depression symptoms Endo: No fatigue Skin: No rash All Other Systems: Reviewed and Negative Medications Current Inpatient Medications Medications (Trade) Dose Ordered Sig/[place] Route Start Time Stop Time Status Last Admin Dose Admin Acetaminophen (Tylenol Supp) 650 mg Q12 PRN [place] 06/23/17 10:00 07/23/17 09:59 Albuterol Sulfate (Ventolin 0.083% 2.5MG/3ML Neb) 2.5 mg Q4H PRN INH 06/23/17 10:00 07/23/17 09:59 Aspirin (Ecotrin Tab) 81 mg QAM PO 06/24/17 09:00 07/24/17 08:59 06/24/17 09:10 81 MG Bisacodyl (Dulcolax Supp) 10 mg Q2D PRN [place] 06/23/17 10:00 07/23/17 09:59 Cyanocobalamin (Vitamin B-12 Tab) 1,000 mcg DAILY PO 06/24/17 09:00 07/24/17 08:59 06/24/17 09:10 1,000 MCG Divalproex Sodium (Depakote Sprinkle Cap) 125 mg TID PRN PO 06/23/17 10:00 07/23/17 09:59 Famotidine (Pepcid Tab) 20 mg BID PO 06/23/17 21:00 07/23/17 20:59 06/24/17 21:13 20 MG Haloperidol (Haldol Tab) 5 mg HS PRN PO 06/23/17 10:00 07/23/17 09:59 Insulin Aspart (novoLOG ASPART) 20 units AC SC 06/23/17 12:45 07/23/17 12:44 06/24/17 12:59 20 UNITS Levothyroxine Sodium (Synthroid Tab) 50 mcg DAILYBB PO 06/24/17 06:00 07/24/17 05:59 06/25/17 05:13 50 MCG Metoprolol Tartrate (Lopressor Tab) 50 mg BID PO 06/23/17 21:00 07/23/17 20:59 06/24/17 21:12 50 MG Ondansetron HCl (Zofran Tab) 4 mg Q8H PRN PO 06/23/17 10:00 07/23/17 09:59 Sodium Chloride ([place] Nasal [place]) 2 sprays HS LITA 06/23/17 21:00 07/23/17 20:59 06/24/17 21:21 2 SPRAYS Senna/Docusate Sodium (Senokot S Tab) 1 tab TID PO 06/23/17 14:00 07/23/17 13:59 06/24/17 21:13 1 TAB Simvastatin (Zocor Tab) 40 mg QPM PO 06/23/17 21:00 07/23/17 20:59 06/24/17 21:13 40 MG Tramadol HCl (Ultram Tab) 50 mg Q6 PRN PO 06/23/17 10:00 07/23/17 09:59 06/24/17 22:52 50 MG Venlafaxine HCl (effeXOR EXTENDED REL CAP) 150 mg QAM PO 06/24/17 09:00 07/24/17 08:59 06/24/17 09:10 150 MG Artificial Tears (Artificial Tears) 1 drops HS OPB 06/23/17 21:00 07/23/17 20:59 06/24/17 21:18 1 DROPS Artificial Tears (Artificial Tears) 1 drops Q8H PRN OPB 06/23/17 12:30 07/23/17 12:29 Artificial Tears (Artificial Tears) 1 drops BID OPB 06/23/17 21:00 07/23/17 20:59 Potassium Chloride (Klor-Con Tab) 20 meq QAM PO 06/24/17 09:00 07/24/17 08:59 06/24/17 09:11 20 MEQ Lactobacillus Acidophilus (Floranex Tab) 4 tab HS PO 06/23/17 21:00 07/23/17 20:59 06/24/17 21:12 4 TAB Insulin Aspart (novoLOG ASPART) SLIDING SCALE PARAMETER ACHS SC 06/23/17 16:15 07/23/17 16:14 06/24/17 21:16 2 UNITS Morphine Sulfate (MoRPHine SULFATE INJ) 4 mg Q4H PRN IV 06/23/17 10:00 07/07/17 09:59 Morphine Sulfate (MoRPHine SULFATE INJ) 2 mg Q4H PRN IV 06/23/17 10:00 07/07/17 09:59 06/25/17 05:12 2 MG Enoxaparin Sodium (Lovenox Inj) 40 mg Q24H SC 06/23/17 14:00 07/23/17 13:59 06/24/17 14:49 40 MG Sodium Chloride 1,000 ml @ 100 mls/hr Q10H IV 06/23/17 09:59 07/23/17 09:58 06/25/17 02:11 100 MLS/HR Acetaminophen (Tylenol Tab) 650 mg Q4H PRN PO 06/23/17 10:00 07/23/17 09:59 Ondansetron HCl (Zofran Inj) 4 mg Q6H PRN IV 06/23/17 10:00 07/23/17 09:59 Nitroglycerin (Nitrostat Tab) 0.4 mg UD PRN SL 06/23/17 10:00 07/23/17 09:59 Polyethylene (Miralax Powder Packet) 17 gm DAILY PRN PO 06/23/17 10:00 07/23/17 09:59 Insulin Detemir (Levemir Flexpen/ FlexTouch) 30 units HS SC 06/23/17 21:00 07/23/17 20:59 06/24/17 21:16 30 UNITS Glucose (Glucose 40% Gel) 15-30 GRAMS 15 GRAMS... UD PRN PO 06/23/17 12:45 07/23/17 12:44 Glucose (Glucose Chew Tab) 4-8 Tablets 4 Tabl... UD PRN PO 06/23/17 12:45 07/23/17 12:44 Dextrose (Dextrose 50% 50ML Syringe) 25-50ML 25ML FOR ... UD PRN IV 06/23/17 12:45 07/23/17 12:44 Glucagon (Glucagon Inj) 1 mg UD PRN IM 06/23/17 12:45 07/23/17 12:44 Carbohydrates (Carbohydrates For Hypoglycemia) 15-30 GRAMS 15 grams if BSG 54-69... UD PRN PO 06/23/17 12:45 07/23/17 12:44 Ceftriaxone Sodium 1 gm/ Dextrose 50 ml @ 100 mls/hr Q24H IV 06/24/17 16:00 07/04/17 15:59 06/24/17 16:21 100 MLS/HR Objective Vital Signs Date Time Temp Pulse Resp B/P (MAP) Pulse Ox O2 Delivery O2 Flow Rate FiO2 06/24/17 12:03 37.2 82 18 136/78 (97) 94 Room Air 06/24/17 12:00 Nasal Cannula 3.0 06/24/17 08:00 Nasal Cannula 3.0 06/24/17 07:20 36.8 116 16 170/80 (110) 92 Room Air 06/24/17 04:00 92 Nasal Cannula 3.0 06/24/17 04:00 114 22 92 Room Air 06/24/17 00:01 92 Nasal Cannula 3.0 06/23/17 23:31 37.3 117 18 161/87 (111) 93 Room Air 06/23/17 21:12 141 135/76 06/23/17 20:00 91 Room Air 06/23/17 19:03 37.3 122 19 127/60 (82) 91 Room Air 06/23/17 16:00 100 Room Air 4.0 06/23/17 15:35 37.2 114 21 127/71 (89) 100 Nasal Cannula 4.0 Physical Exam Comments: General Appearance: WD/WN, no distress Head: normocephalic, + pertinent finding (facial droop to right) Eyes: normal inspection, sclerae normal Neck: supple, no JVD Respiratory/Chest: chest non-tender, lungs clear, normal breath sounds Cardiovascular: regular rate, rhythm, no murmur Abdomen/GI: normal bowel sounds, non tender, soft Back: no CVA tenderness Extremities/Musculoskelatal: + pedal edema, + swelling Neurologic/Psych: alert, + facial droop, + motor weakness Skin: normal color, no rash Laboratory Results Last 24 Hours Test 06/23/17 15:59 06/23/17 16:35 06/23/17 20:11 06/23/17 21:53 Troponin I 0.062 ng/ml 0.051 ng/ml Bedside Glucose 229 mg/dl 142 mg/dl Test 06/24/17 07:05 06/24/17 07:24 06/24/17 09:52 06/24/17 12:22 White Blood Count 6.59 K/uL Red Blood Count 4.00 M/uL Hemoglobin 11.6 g/dL Hematocrit 35.1 % Mean Corpuscular Volume 87.8 fL Mean Corpuscular Hemoglobin 29.0 pg Mean Corpuscular Hemoglobin Concent 33.0 g/dl RDW Standard Deviation 51.4 fL RDW Coefficient of Variation 15.9 % Platelet Count 92 K/uL Mean Platelet Volume 9.5 fL Sodium Level 140 mmol/L Potassium Level 4.1 mmol/L Chloride Level 108 mmol/L Carbon Dioxide Level 29 mmol/L Anion Gap 3.0 mmol/L Blood Urea Nitrogen 11 mg/dl Creatinine 0.76 mg/dl Est Creatinine Clear Calc Drug Dose 82.2 ml/min Estimated GFR () 91.5 Estimated GFR (Non- 78.9 BUN/Creatinine Ratio 15.1 Random Glucose 183 mg/dl Calcium Level 8.6 mg/dl Magnesium Level 2.0 mg/dl Troponin I 0.032 ng/ml 0.037 ng/ml Bedside Glucose 158 mg/dl 116 mg/dl Assessment and Plan 72 F here from snf, previously DNR has baseline psychosis, states she does not want to be admitted, attempts to contact family met with no answer, discussion with [facility] veterinary medical officer finds that the family had not made a decision about comfort measures or POLST form, positive care consultation will be undertaken during this admission to determine if the patient and family wishes would prevent further admissions in the future Sepsis due to UTI Patient had fever, tachycardia, hypoxia, AMS and IVF treated with IVF boluses and levofloxacin. Now on cephalosporin. Awaiting urine cultures Metabolic encephalopathy on admission. Resolved. Patient appears to be more awake today. Able to carry conversation. DM, this places her at increased risk of infection, hold metformin, levimir and ssi, diabetic diet Tachycardia, from SIRS, will be hydrated, continue metoprolol Psychosis previous jun, maintain effexor, cymbalta, check depakote level constipation le and sudheer lozoya spent 40 minutes with patient today.
[2017-06-24] MEDS: CEFTRIAXONE SOD INJ 1000 MG in DEXTROSE 5% 50ML IV SCH (16:21)
[2017-06-24] MEDS: LACTOBACILLUS ACIDOPHILUS (FLORANEX) TAB PO SCH (21:12)
[2017-06-24] MEDS: SIMVASTATIN 40 MG TAB PO SCH (21:13)
[2017-06-24] MEDS: INSULIN DETEMIR FLEXPEN/FLEX TOUCH 100 UNITS/ML 3ML SC SCH (21:16)
[2017-06-24] MEDS: SODIUM CHLORIDE 0.65% NA SOLN 45 ML (OCEAN) NAE SCH (21:21)
[2017-06-25] VITALS (7 sets, daily range): BP systolic 156–198; BP diastolic 82–104; PULSE 77–87; TEMP 36.4–37; O2SAT 93–97
[2017-06-25] MEDS: SODIUM CHLORIDE 0.9% 1000ML 1,000 ML IV SCH ×3 (02:11→23:43)
[2017-06-25] MEDS: MoRPHine SULFATE 2 MG/ML CARP IV PRN ×2 (05:12→21:33)
[2017-06-25] MEDS: LEVOTHYROXINE 50 MCG TAB PO SCH (05:13)
[2017-06-25 06:38] LABS: CALCIUM 8.5 mg/dl (8.5-10.1); CREATININE 0.58 mg/dl (0.60-1.20); POTASSIUM 3.8 mmol/L (3.5-5.1)
[2017-06-25] MEDS: ARTIFICIAL TEARS OP SOLN OPB SCH ×3 (08:20→20:50)
[2017-06-25] MEDS: INSULIN ASPART 100 UNITS/ML 3 ML PEN SC SCH ×8 (08:21→20:33)
[2017-06-25] MEDS: TRAMADOL HCL 50 MG TAB PO PRN ×2 (08:22→23:43)
[2017-06-25] MEDS: ASPIRIN 81 MG ECTAB PO SCH (08:22)
[2017-06-25] MEDS: FAMOTIDINE 20 MG TAB PO SCH ×2 (08:23→20:52)
[2017-06-25] MEDS: METOPROLOL TARTRATE 50 MG TAB PO SCH ×2 (08:23→20:52)
[2017-06-25] MEDS: POTASSIUM CHLORIDE 20 MEQ TABCR PO SCH (08:23)
[2017-06-25] MEDS: DOCUSATE SODIUM/SENNA 50/8.6MG TAB PO SCH ×3 (08:24→20:50)
[2017-06-25] MEDS: CYANOCOBALAMIN 500 MCG TAB (VIT B-12) PO SCH (08:24)
[2017-06-25] MEDS: VENLAFAXINE HCL XR 150 MG CAPXR PO SCH (08:24)
[2017-06-25] MEDS: MoRPHine SULFATE 4 MG/ML 1 ML CARP\\VIAL IV PRN (11:28)
[2017-06-25] MEDS: ENOXAPARIN 40 MG/0.4 ML SYR SC SCH (15:24)
[2017-06-25] MEDS: CEFTRIAXONE SOD INJ 1000 MG in DEXTROSE 5% 50ML IV SCH (15:24)
[2017-06-25] MEDS: SODIUM CHLORIDE 0.65% NA SOLN 45 ML (OCEAN) NAE SCH (20:50)
[2017-06-25] MEDS: LACTOBACILLUS ACIDOPHILUS (FLORANEX) TAB PO SCH (20:51)
[2017-06-25] MEDS: SIMVASTATIN 40 MG TAB PO SCH (20:52)
[2017-06-25] MEDS: INSULIN DETEMIR FLEXPEN/FLEX TOUCH 100 UNITS/ML 3ML SC SCH (21:38)
--- NOTE | 2017-06-25 21:38 | Progress Note ---
Progress Note Date of Service June 25, 2017. Progress Note Called to address patient's insulin coverage - BSG 95 Discussed case with pharmacy - reduced levemir to 10units tonight with additional accu checks overnight Defer alterations in insulin management while in hospital to primary team in AM Resident Tracking Resident Involvement: Resident Care Provided Care Provided: Adult Hospital Medicine
--- NOTE | 2017-06-25 21:59 | Progress Note ---
Subjective Date of Service: June 25, 2017. Subjective Pt evaluation today including: conversation w/ patient Patient has no new complaints today. Problem List Medical Problems: (1) Acute paranoia Status: Acute (2) Altered mental status Status: Acute (3) Back pain Status: Acute (4) DKA (diabetic ketoacidosis) Status: Acute (5) Hernia of bladder Status: Acute (6) Hyponatremia Status: Acute (7) UTI (urinary tract infection) Status: Acute (8) UTI (urinary tract infection) Status: Acute Review of Systems Constitutional: No fever, No chills Eyes: No eye pain ENT: No unusual epistaxis Respiratory: No dyspnea on exertion Cardiac: No chest pain Abdomen: No pain Neurologic: No memory loss Psychiatric: No depression symptoms Endo: No fatigue Skin: No rash All Other Systems: Reviewed and Negative Objective Vital Signs Date Time Temp Pulse Resp B/P (MAP) Pulse Ox O2 Delivery O2 Flow Rate FiO2 06/25/17 20:49 36.7 84 18 169/93 (118) 97 Room Air 06/25/17 16:00 Room Air 06/25/17 15:33 36.8 84 163/82 (109) 96 Room Air 06/25/17 12:40 169/96 (120) 06/25/17 12:00 Room Air 06/25/17 10:55 37.0 78 20 198/104 (135) 95 Room Air 175/88 (117) 06/25/17 08:00 Room Air 06/25/17 06:53 36.7 87 18 156/84 (108) 93 Room Air 06/25/17 04:00 Room Air 06/25/17 04:00 36.6 84 18 170/87 (114) 95 Room Air 06/25/17 00:00 Room Air 06/24/17 23:42 37.1 89 17 189/114 (139) 93 Room Air Physical Exam Comments: General Appearance: WD/WN, no distress Head: normocephalic, + pertinent finding (facial droop to right) Eyes: normal inspection, sclerae normal Neck: supple, no JVD Respiratory/Chest: chest non-tender, lungs clear, normal breath sounds Cardiovascular: regular rate, rhythm, no murmur Abdomen/GI: normal bowel sounds, non tender, soft Back: no CVA tenderness Extremities/Musculoskelatal: + pedal edema, + swelling Neurologic/Psych: alert, + facial droop, + motor weakness Skin: normal color, no rash Laboratory Results Last 24 Hours Test 06/25/17 05:43 06/25/17 07:19 06/25/17 11:17 06/25/17 16:33 Sodium Level 138 mmol/L Potassium Level 3.8 mmol/L Chloride Level 107 mmol/L Carbon Dioxide Level 28 mmol/L Anion Gap 3.0 mmol/L Blood Urea Nitrogen 10 mg/dl Creatinine 0.58 mg/dl Est Creatinine Clear Calc Drug Dose 106.7 ml/min Estimated GFR () 107.5 Estimated GFR (Non- 92.7 BUN/Creatinine Ratio 16.6 Random Glucose 136 mg/dl Calcium Level 8.5 mg/dl Bedside Glucose 189 mg/dl 85 mg/dl 192 mg/dl Test 06/25/17 20:21 Bedside Glucose 95 mg/dl Assessment and Plan 72 F here from snf, previously DNR has baseline psychosis, states she does not want to be admitted, attempts to contact family met with no answer, discussion with [facility] esthetician and manager [facility] finds that the family had not made a decision about comfort measures or POLST form, positive care consultation will be undertaken during this admission to determine if the patient and family wishes would prevent further admissions in the future Sepsis due to UTI Patient had fever, tachycardia, hypoxia, AMS and IVF treated with IVF boluses and levofloxacin Now on cephalosporin. Awaiting urine cultures. Vitals appear to be controlled. Metabolic encepahlopathy on admission. Resolved. Patient appears to be more awake today. Able to carry conversation. DM, this places her at increased risk of infection, hold metformin, levimir and ssi, diabetic diet Tachycardia, from SIRS, will be hydrated, continue metoprolol Psychosis previous jun, maintain effexor, cymbalta, check depakote level constipation amitiza and linzess lovenox
[2017-06-25] MEDS ORDERED: INSULIN DETEMIR FLEXPEN/FLEX TOUCH 100 UNITS/ML 3ML SC SCH (22:00)
[2017-06-26] VITALS: BP 148/69; PULSE 72; TEMP 36.5; O2SAT 94
[2017-06-26] MEDS: MoRPHine SULFATE 4 MG/ML 1 ML CARP\\VIAL IV PRN ×3 (02:40→12:37)
[2017-06-26] MEDS: INSULIN ASPART 100 UNITS/ML 3 ML PEN SC SCH ×8 (04:00→21:06)
[2017-06-26 05:08] LABS: HEMATOCRIT 42.2 % (37-47); MEAN CELL VOLUME 86.1 fL (80-100); MEAN CORPUSCULAR HEMOGLOBIN 28.6 pg (25-34); MEAN CORPUSCULAR HGB CONC 33.2 g/dl (32-36); MEAN PLATELET VOLUME 9.5 fL (7.4-10.4); PLATELET COUNT 141 K/uL (130-400); RED CELL DISTRIBUTION WIDTH CV 15.6 % (11.5-14.5); RED CELL DISTRIBUTION WIDTH SD 49.3 fL (36.4-46.3); WHITE BLOOD COUNT 6.86 K/uL (4.8-10.8)
[2017-06-26 05:13] LABS: CALCIUM 8.7 mg/dl (8.5-10.1); CREATININE 0.67 mg/dl (0.60-1.20); POTASSIUM 3.6 mmol/L (3.5-5.1)
[2017-06-26] MEDS: LEVOTHYROXINE 50 MCG TAB PO SCH (06:37)
[2017-06-26] MEDS: TRAMADOL HCL 50 MG TAB PO PRN ×2 (06:37→20:27)
[2017-06-26 07:39] VITALS: BP 165/99; PULSE 82; TEMP 36.7; O2SAT 95
[2017-06-26] MEDS: ARTIFICIAL TEARS OP SOLN OPB SCH ×3 (08:44→21:06)
[2017-06-26] MEDS: SODIUM CHLORIDE 0.9% 1000ML 1,000 ML IV SCH (08:44)
[2017-06-26] MEDS: FAMOTIDINE 20 MG TAB PO SCH ×2 (08:45→20:08)
[2017-06-26] MEDS: POTASSIUM CHLORIDE 20 MEQ TABCR PO SCH (08:45)
[2017-06-26] MEDS: VENLAFAXINE HCL XR 150 MG CAPXR PO SCH (08:45)
[2017-06-26] MEDS: CYANOCOBALAMIN 500 MCG TAB (VIT B-12) PO SCH (08:45)
[2017-06-26] MEDS: DOCUSATE SODIUM/SENNA 50/8.6MG TAB PO SCH ×3 (08:45→20:07)
[2017-06-26] MEDS: METOPROLOL TARTRATE 50 MG TAB PO SCH ×2 (08:45→20:08)
[2017-06-26] MEDS: ASPIRIN 81 MG ECTAB PO SCH (08:45)
[2017-06-26] MEDS: ENOXAPARIN 40 MG/0.4 ML SYR SC SCH (14:26)
--- NOTE | 2017-06-26 14:35 | Discharge Summary ---
Discharge Summary Date of Service June 27, 2017. Discharge Summary Admission Date: June 23, 2017 at 10:09 Discharge Date: June 27, 2017 Discharge Disposition: care home facility Principal Diagnosis: Metabolic Encephalopathy Problems/Secondary Diagnoses: as noted below Immunizations: Have You Had Influenza Vaccine: N/A Influenza Vaccine Date: Dec 08, 2011 History of Tetanus Vaccine?: Unknown Tetanus Immunization Date: May 07, 2010 History of Pneumococcal: Unknown Pneumococcal Date: May 07, 2010 History of Hepatitis B Vaccine: Unknown Medication Reconciliation Continued Medications: Acetaminophen (Tylenol) 650 Mg Supp 650 MG IA Q12 PRN for Pain or Fever Albuterol Sulf (Proventil 0.083% 2.5MG/3ML) 2.5 Mg/3 Ml Nebu 2.5 MG INH Q4H PRN for SOB/Wheezing Artificial Tear Solution (Artificial Tears) 1 Gisell Gisell 1 DROPS OPB Q8 PRN for DRYNESS, 5 Refills Artificial Tear Solution (Artificial Tears) 1 Gisell Gisell 1 DROPS OPB HS, 5 Refills Aspirin (Aspirin Chewable) 81 Mg Chew 81 MG PO QAM Bisacodyl (Dulcolax) 10 Mg Sup 10 MG IA Q2D ON DAY SHIFTS NEEDED FOR CONSTIPATION Carboxymethylcellulose-Glyceri (Refresh Optive 1-0.9 %) 1 Gel Gel 1 DROP OPB BID Cyanocobalamin (Vitamin B-12) 1,000 Mcg Tab 1000 MCG PO DAILY, TAB Dimethicone-Petrolatum ([place] Ultimate Diabet 3-30 %) 1 Cre Cre 1 APPLN TOP TID PRN for DRY SKIN USE ON LOWER LEGS Divalproex Sodium (Depakote Sprinkles) 125 Mg Cap 125 MG PO TID PRN for MOOD SWINGS Famotidine (Pepcid) 20 Mg Tab 20 MG PO BID heartburn, indigestion Furosemide (Lasix) 20 Mg Tab 20 MG PO QAM Haloperidol (Haldol) 5 Mg Tab 5 MG PO HS PRN for PSYCHOSIS Insulin Detemir (Levemir) 100 Units/Ml Inj 90 UNITS SC HS Insulin Lispro (Human) (Humalog) 100 Unit/Ml Inj 20 UNITS SC AC Insulin Lispro (Human) (Humalog) 100 Unit/Ml Inj 1 DOSE SQ UD BEFORE MEALS AND AT BEDTIME PER SLIDING SCALE: 350-400= 8 UNITS 401-450= 12 UNITS 451-500= 16 UNITS 501-550= 18 UNITS RECHECK BS IN 2 HRS Levothyroxine Sodium (Levothyroxine Sodium) 50 Mcg Tab 50 MCG PO QAM, 3 Refills Menthol-Methyl Salicylate (Marissa (Bengay Greaseless) 1 Cre Cre 1 APPLN TOP TID ONCE PER SHIFT TO UPPER, LOWER EXTREMETIES NEEDED FOR MUSCLE ACHES Metformin Hcl (Glucophage) 500 Mg Tab 500 MG PO BIDM Metoprolol Tartrate (Lopressor) 50 Mg Tab 50 MG PO BID Morphine Sulfate (Morphine Sulfate ER) 60 Mg Tabcr 60 MG PO TID PRN for Pain Mouthwashes (Biotene Dry Mouth Oral Ri) 1 Liq Liq 1 SPRAY PO Q4 PRN for dry mouth Mouthwashes (Biotene Dry Mouth Oral Ri) 1 Liq Liq 1 SPRAY PO TID Ondansetron Hcl (Zofran) 4 Mg Tab 4 MG PO Q8H PRN for Nausea, TAB Potassium Chloride (Potassium Chloride ER) 20 Meq Tab 20 MEQ PO QAM Probiotic Product (Acidophilus) 1 Cap Cap 1 CAP PO HS Saline ([place] Nasal [place]) 0.65 % Spr 1 SPRAY LITA HS Sennosides-Docusate Sodium (Senna Plus) 1 Tab Tab 1 TABS PO TID for Constipation Simvastatin (Zocor) 40 Mg Tab 40 MG PO QPM, TAB Tramadol (Ultram) 50 Mg Tab 50 MG PO Q6 PRN for Pain, TAB Umeclidinium-Vilanterol (Anoro Ellipta 62.5-25 Mcg/INH) 1 Aer Aer 1 PUFF INH DAILY Venlafaxine Hcl (Venlafaxine Hcl Er) 150 Mg Tab 1 TAB PO QAM for 30 Days, #30 TAB 2 Refills Discontinued Medications: Diclofenac Sod (Diclofenac Sodium Dr) 50 Mg Tabec 50 MG PO TID PRN for Pain Nitrofurantoin Monohyd Macro (Macrobid) 100 Mg Cap 100 MG PO BID PRN for UTI EVERY MORNING AND AT BEDTIME FOR 7 DAYS. START DATE 06/21/17 Discharge Exam ROS: Constitutional: No fever, No chills Eyes: No eye pain ENT: No unusual epistaxis Respiratory: No dyspnea on exertion Cardiac: No chest pain Abdomen: No pain Neurologic: No memory loss Psychiatric: No depression symptoms Endo: No fatigue Skin: No rash Physical Exam Comments: General Appearance: WD/WN, no distress Head: normocephalic, + pertinent finding (facial droop to right) Eyes: normal inspection, sclerae normal Neck: supple, no JVD Respiratory/Chest: chest non-tender, lungs clear, normal breath sounds Cardiovascular: regular rate, rhythm, no murmur Abdomen/GI: normal bowel sounds, non tender, soft Back: no CVA tenderness Extremities/Musculoskelatal: + pedal edema, + swelling Neurologic/Psych: alert, + facial droop, + motor weakness Skin: normal color, no rash Hospital Course 72 F here from snf, previously DNR has baseline psychosis, states she does not want to be admitted, attempts to contact family met with no answer, discussion with group home medical office specialist finds that the family had not made a decision about comfort measures or POLST form, positive care consultation will be undertaken during this admission to determine if the patient and family wishes would prevent further admissions in the future Sepsis due to UTI Patient had fever, tachycardia, hypoxia, AMS and IVF treated with IVF boluses and levofloxacin. Now on cephalosporin. Uirne cultures showed gram positive and dihpteroids. will continue cephalosporin, and will discharge patient on cefadroxil, and will complete treatment. Metabolic encepahlopathy on admission. Resolved. Patient appears to be more awake today. Able to carry conversation. DM, this places her at increased risk of infection, hold metformin, On levimir and ssi, diabetic diet Blood sugar was low which hed discharge the previous day. Today BS better controlled. Tachycardia, from SIRS, will be hydrated, continue metoprolol Psychosis previous jun, maintain effexor, cymbalta, check depakote level constipation amitiza and linzess lovenox I answered all of the patients questions and concerns. Total Time Spent: Greater than 30 minutes This includes examination of the patient, discharge planning, medication reconciliation, and communication with other providers. Discharge Instructions Please refer to the electronic Patient Visit Report (Discharge Instructions) for additional information. Follow-Up as noted in discharge instructions
[2017-06-26] MEDS ORDERED: CEFA500C2 PO (14:41)
--- NOTE | 2017-06-26 14:46 | Discharge Instructions ---
Discharge Instructions Date of Service June 26, 2017. Admission Reason for Admission: Sirs,Uti Discharge Discharge Diagnosis / Problem: Cystitis Discharge Goals Goal(s): Decrease discomfort, Improve function Activity Recommendations Activity Limitations: resume your previous activity . Instructions / Follow-Up Instructions / Follow-Up Followup with PCP in 1 week finish up course of antibiotics You came in to the hospital due to Urinary tract infection. This has been treated and you have improved. Please finish 4 more of antibiotics Current Hospital Diet Patient's current hospital diet: Diabetes Type 2 Diet, Vegetarian Diet Discharge Diet Recommended Diet: Diabetes Type 2 Diet, Vegetarian Diet Pending Studies Studies pending at discharge: no Laboratory Results Hemoglobin A1c Test 04/04/17 05:10 Range/Units Estimated Average Glucose 209 mg/dl Hemoglobin A1c 8.9 H 4.5-5.6 % Lipid Panel Test 05/31/17 05:42 Range/Units Triglycerides Level 169 H 0-150 mg/dl Cholesterol Level 132 0-200 mg/dl HDL Cholesterol 47 mg/dl Cholesterol/HDL Ratio 2.8 LDL Cholesterol, Calculated 51 mg/dl Medical Emergencies . Who to Call and When: Medical Emergencies: If at any time you feel your situation is an emergency, please call 911 immediately. . Non-Emergent Contact Non-Emergency issues call your: Primary Care Provider Call Non-Emergent contact if: you have any medication questions . . "Provider Documentation" section prepared by Eduin Soliman. .
[2017-06-26 14:51] VITALS: BP 165/99; PULSE 82; TEMP 36.7; O2SAT 95
[2017-06-26 16:00] VITALS: O2SAT 95
[2017-06-26] MEDS ORDERED: PHARMACY GLYCEMIC MGMT CONSULT PRN (16:12)
[2017-06-26] MEDS: CEFTRIAXONE SOD INJ 1000 MG in DEXTROSE 5% 50ML IV SCH (16:30)
[2017-06-26] MEDS ORDERED: NURSING VERBAL MED ORDER ONE (17:30)
[2017-06-26] MEDS: SIMVASTATIN 40 MG TAB PO SCH (20:13)
[2017-06-26] MEDS: LACTOBACILLUS ACIDOPHILUS (FLORANEX) TAB PO SCH (20:14)
[2017-06-26] MEDS: SODIUM CHLORIDE 0.65% NA SOLN 45 ML (OCEAN) NAE SCH (21:05)
--- NOTE | 2017-06-26 21:44 | Pharmacy Progress Note ---
Pharmacy Glycemic Short Note 2 Date of Service June 26, 2017. OUTPATIENT ANTIDIABETIC REGIMEN: * Levemir 90 units qHS * Humalog 20 units w/ meals * Humalog per sliding scale * Metformin 500 mg BID * A1c 8.9% on 04/04/17 ASSESSMENT: * Consult received late today for hypoglycemia causing discharge to be cancelled * Patient currently ordered set dose of Novolog w/ meals, which most likely caused the hypoglycemia * Will change Novolog to CF/CR and split basal/bolus 50/50 for est TDD of 60-70 units PLAN FOR INPATIENT GLYCEMIC CONTROL: * Hold outpatient oral diabetes medications * Basal insulin * Levemir 15, 20 or 25 units qHS depending on BSG * Bolus insulin * NovoLog per scale ACHS or Q6hrs while NPO * Goal Range: Low 110 mg/dL - High 150 mg/dL * Correction Factor: 25 mg/dL/unit * Nutritional / Prandial insulin per carb ratio of 1 unit per 7 grams CHO consumed
[2017-06-26] MEDS ORDERED: INSULIN DETEMIR FLEXPEN/FLEX TOUCH 100 UNITS/ML 3ML SC SCH (22:00)
--- NOTE | 2017-06-26 22:26 | Progress Note ---
Subjective Date of Service: June 26, 2017. Subjective Pt evaluation today including: conversation w/ patient, conversation w/ family 72 yo female, hos no new complaints today. Problem List Medical Problems: (1) Acute paranoia Status: Acute (2) Altered mental status Status: Acute (3) Back pain Status: Acute (4) DKA (diabetic ketoacidosis) Status: Acute (5) Hernia of bladder Status: Acute (6) Hyponatremia Status: Acute (7) UTI (urinary tract infection) Status: Acute (8) UTI (urinary tract infection) Status: Acute Review of Systems Constitutional: No fever, No chills Eyes: No eye pain ENT: No unusual epistaxis Respiratory: No dyspnea on exertion Cardiac: No chest pain Abdomen: No pain Neurologic: No memory loss Psychiatric: No depression symptoms Endo: No fatigue Skin: No rash All Other Systems: Reviewed and Negative Objective Vital Signs Date Time Temp Pulse Resp B/P (MAP) Pulse Ox O2 Delivery O2 Flow Rate FiO2 06/26/17 20:00 Room Air 06/26/17 16:00 95 Room Air 06/26/17 14:51 36.7 82 16 95 Room Air 06/26/17 08:00 Room Air 06/26/17 07:39 36.7 82 16 165/99 (121) 95 Room Air 06/26/17 00:00 36.5 72 20 148/69 (95) 94 Room Air 06/26/17 00:00 Room Air Physical Exam Comments: General Appearance: WD/WN, no distress Head: normocephalic, + pertinent finding (facial droop to right) Eyes: normal inspection, sclerae normal Neck: supple, no JVD Respiratory/Chest: chest non-tender, lungs clear, normal breath sounds Cardiovascular: regular rate, rhythm, no murmur Abdomen/GI: normal bowel sounds, non tender, soft Back: no CVA tenderness Extremities/Musculoskelatal: + pedal edema, + swelling Neurologic/Psych: alert, + facial droop, + motor weakness Skin: normal color, no rash Laboratory Results Last 24 Hours Test 06/25/17 22:34 06/26/17 00:16 06/26/17 04:07 06/26/17 04:54 Bedside Glucose 98 mg/dl 93 mg/dl 146 mg/dl White Blood Count 6.86 K/uL Red Blood Count 4.90 M/uL Hemoglobin 14.0 g/dL Hematocrit 42.2 % Mean Corpuscular Volume 86.1 fL Mean Corpuscular Hemoglobin 28.6 pg Mean Corpuscular Hemoglobin Concent 33.2 g/dl RDW Standard Deviation 49.3 fL RDW Coefficient of Variation 15.6 % Platelet Count 141 K/uL Mean Platelet Volume 9.5 fL Sodium Level 139 mmol/L Potassium Level 3.6 mmol/L Chloride Level 106 mmol/L Carbon Dioxide Level 26 mmol/L Anion Gap 7.0 mmol/L Blood Urea Nitrogen 10 mg/dl Creatinine 0.67 mg/dl Est Creatinine Clear Calc Drug Dose 92.4 ml/min Estimated GFR () 102.5 Estimated GFR (Non- 88.4 BUN/Creatinine Ratio 14.2 Random Glucose 135 mg/dl Calcium Level 8.7 mg/dl Magnesium Level 1.8 mg/dl Test 06/26/17 07:52 06/26/17 11:36 06/26/17 15:07 06/26/17 15:19 Bedside Glucose 216 mg/dl 130 mg/dl 63 mg/dl 56 mg/dl Test 06/26/17 15:33 06/26/17 15:56 06/26/17 16:40 06/26/17 18:06 Bedside Glucose 73 mg/dl 102 mg/dl 235 mg/dl 204 mg/dl Test 06/26/17 20:08 Bedside Glucose 124 mg/dl Assessment and Plan 72 F here from snf, previously DNR has baseline psychosis, states she does not want to be admitted, attempts to contact family met with no answer, discussion with retirement medical coding specialist finds that the family had not made a decision about comfort measures or POLST form, positive care consultation will be undertaken during this admission to determine if the patient and family wishes would prevent further admissions in the future Sepsis due to UTI Patient had fever, tachycardia, hypoxia, AMS and IVF treated with IVF boluses and levofloxacin. Now on cephalosporin. Uirne cultures showed gram positive and dihpteroids. will continue cephalosporin, and will discharge patient on cefadroxil. Metabolic encepahlopathy on admission. Resolved. Patient appears to be more awake today. Able to carry conversation. DM, this places her at increased risk of infection, hold metformin, On levimir and ssi, diabetic diet Blood sugar was low whcih cuased discharge to be held. Tachycardia, from SIRS, will be hydrated, continue metoprolol Psychosis previous jun, maintain effexor, cymbalta, check depakote level constipation le and sudheer lozoya Spent 35 minutes in management of the case today.
[2017-06-27] MEDS: MoRPHine SULFATE 4 MG/ML 1 ML CARP\\VIAL IV PRN ×3 (00:22→09:19)
[2017-06-27 00:30] VITALS: BP 174/111; PULSE 80; TEMP 36.8; O2SAT 95
[2017-06-27 01:58] VITALS: BP 168/110
[2017-06-27] MEDS: LEVOTHYROXINE 50 MCG TAB PO SCH (04:53)
[2017-06-27 07:20] LABS: CALCIUM 8.9 mg/dl (8.5-10.1); CREATININE 0.76 mg/dl (0.60-1.20); POTASSIUM 3.8 mmol/L (3.5-5.1)
[2017-06-27] MEDS: ARTIFICIAL TEARS OP SOLN OPB SCH (08:00)
[2017-06-27 08:16] VITALS: BP_SYST 162; BP_SYST 170; BP_DIAS 106; BP_DIAS 126; PULSE 87; TEMP 36.8; O2SAT 96
[2017-06-27] MEDS: POTASSIUM CHLORIDE 20 MEQ TABCR PO SCH (09:18)
[2017-06-27] MEDS: DOCUSATE SODIUM/SENNA 50/8.6MG TAB PO SCH (09:18)
[2017-06-27] MEDS: VENLAFAXINE HCL XR 150 MG CAPXR PO SCH (09:18)
[2017-06-27] MEDS: METOPROLOL TARTRATE 50 MG TAB PO SCH (09:18)
[2017-06-27] MEDS: ASPIRIN 81 MG ECTAB PO SCH (09:18)
[2017-06-27] MEDS: FAMOTIDINE 20 MG TAB PO SCH (09:18)
[2017-06-27] MEDS: CYANOCOBALAMIN 500 MCG TAB (VIT B-12) PO SCH (09:18)
[2017-06-27] MEDS: INSULIN ASPART 100 UNITS/ML 3 ML PEN SC SCH (09:26)
== END 2017-06-27 10:36 | DRG 871 ==
LOC: EDBD 07:35 → C.EDB 07:36 → C.2T 10:09 → UNDOADMIN 10:09 → ENRESERV 10:19 → C.MS4W 06-25 19:40
PROVIDERS: ADMIT Internal Medicine; ATTEND Internal Medicine Sports Medicine
DX: A41.89 Other specified sepsis (principal); G93.41 Metabolic encephalopathy; N39.0 Urinary tract infection, site not specified; E83.42 Hypomagnesemia; E11.649 Type 2 diabetes mellitus with hypoglycemia without coma; K59.00 Constipation, unspecified; G35 Multiple sclerosis; J44.9 Chronic obstructive pulmonary disease, unspecified; F31.9 Bipolar disorder, unspecified; Z66 Do not resuscitate; Z51.5 Encounter for palliative care; Z86.73 Personal history of transient ischemic attack (TIA), and cerebral infarction without residual deficits; Z86.59 Personal history of other mental and behavioral disorders; Z79.82 Long term (current) use of aspirin; Z79.4 Long term (current) use of insulin; Z79.899 Other long term (current) drug therapy; Z88.0 Allergy status to penicillin; Z88.1 Allergy status to other antibiotic agents; Z88.2 Allergy status to sulfonamides; Z88.5 Allergy status to narcotic agent; Z88.4 Allergy status to anesthetic agent; Z88.8 Allergy status to other drugs, medicaments and biological substances

== ENCOUNTER 2017-07-28 04:11 | Emergency (ER) | payer OTHER ==
[~2017-07-28] VITALS: Ht 167.6 cm; Wt 95.3 kg
[~2017-07-28 04:11] MED LIST changes: -ACET-1693 PO; +ACET650S10 PR; -AMT24 PO; +BISA10SU3 PR; -CEPH-570 PO; -CYM/30 PO; -DICL50TA3 PO; +DIVA125C8 PO; -DIVA250T PO; +HALO5TAB PO; -HMLI SC; -INSU100I SC; +INSU100I SQ; -LINA1CAP PO; +LINICRE61 TOP; -LVMI SC; +LVMI SQ; +METO-551 PO; -METO50TA8 PO; -MORP1CAP PO; -MORP1CAP96 PO; -MORP30TA PO; +POTA-65 PO; -POTA10CA28 PO; +[UNRECOGNIZED DRUG - CODE] PO
[2017-07-28 04:18] VITALS: TEMP 37; Ht 167.6 cm; Wt 95.3 kg
--- NOTE | 2017-07-28 04:21 | EMERGENCY ROOM VISIT NOTE ---
History Report prepared by Amelia: Emmanuel Stapleton Under the Supervision of: Dr. Maria Teresa Ybarra D.O. First contact with patient: 04:09 Chief Complaint: ALTERED MENTAL STATUS Stated Complaint: LEFT FOOT PAIN/CHANGE IN MENTAL STATUS History of Present Illness The patient is a 78 year old female who presents to the Emergency Room via EMS with complaints of a constant cold left leg beginning this evening. EMS states that when they arrived at [facility], the patient seemed to have an altered mental status. The staff explained that she is "normally more talkative". Patient states that the coldness in her leg is not new. Patient denies any pain in her legs or abdomen. EMS states that the patient is from [facility]. EMS adds the patient is a diabetic. Source of History: patient Onset: This evening Position: leg (left) Quality: other (Cold) Timing: constant Modifying Factors (Relieving): other (None) Associated Symptoms: No abdominal pain Note: Patient denies leg pain. Review of Systems See HPI for pertinent positives & negatives. A total of 10 systems reviewed and were otherwise negative. Past Medical & Surgical Medical Problems: (1) Acute psychosis (2) Atrial fibrillation (3) bipolar disorder by history, with psychosis (4) Chronic urinary tract infection (5) COPD (chronic obstructive pulmonary disease) (6) Diabetes mellitus (7) Dyslipidemia (8) fibromyalgia (9) GERD (gastroesophageal reflux disease) (10) Herniated disc (11) Hx of TIA (transient ischemic attack) and stroke (12) Hyperglycemia (13) Hypertension (14) Hypothyroidism (15) Mariella (16) Multiple sclerosis (17) SIRS (systemic inflammatory response syndrome) Family History Omitted secondary to age. Social History Housing Status: assisted living Current/Historical Medications Scheduled Artificial Tear Solution (Artificial Tears), 1 DROPS OPB HS Aspirin (Aspirin Chewable), 81 MG PO QAM Benztropine Mesylate (Benztropine Mesylate), 0.5 MG PO BID Bisacodyl (Dulcolax), 10 MG TN Q2D Carboxymethylcellulose-Glyceri (Refresh Optive 1-0.9 %), 1 DROP OPB BID Cyanocobalamin (Vitamin B-12), 1,000 MCG PO DAILY Divalproex Sodium (Depakote Sprinkles), 125 MG PO TID Famotidine (Pepcid), 20 MG PO BID Furosemide (Lasix), 20 MG PO QAM Insulin Detemir (Levemir), 90 UNITS SQ HS Insulin Lispro (Human) (Humalog), 20 UNITS SQ AC Insulin Lispro (Human) (Humalog), 1 DOSE SQ UD Levothyroxine Sodium (Levothyroxine Sodium), 50 MCG PO QAM Menthol-Methyl Salicylate (Marissa (Bengay Greaseless), 1 APPLN TOP TID Metformin Hcl (Glucophage), 500 MG PO BIDM Metoprolol Tartrate (Lopressor), 50 MG PO BID Morphine Sulfate (Morphine Sulfate ER), 60 MG PO TID Mouthwashes (Biotene Dry Mouth Oral Ri), 1 SPRAY PO TID Potassium Chloride (Potassium Chloride ER), 20 MEQ PO QAM Probiotic Product (Acidophilus), 1 CAP PO HS Saline ([place] Nasal [place]), 1 SPRAY LITA HS Sennosides-Docusate Sodium (Senna Plus), 1 TABS PO TID Simvastatin (Zocor), 40 MG PO QPM Umeclidinium-Vilanterol (Anoro Ellipta 62.5-25 Mcg/INH), 1 PUFF INH DAILY Venlafaxine Hcl (Venlafaxine Hcl Er), 150 MG PO QAM Scheduled PRN Acetaminophen (Tylenol), 650 MG TN Q12 PRN for Pain or Fever Albuterol Sulf (Proventil 0.083% 2.5MG/3ML), 2.5 MG INH Q4H PRN for SOB/Wheezing Dimethicone-Petrolatum (Gold Patterson Ultimate Diabet 3-30 %), 1 APPLN TOP TID PRN for DRY SKIN Lactulose (Lactulose), 30 ML PO Q6H PRN for Constipation Ondansetron Hcl (Zofran), 4 MG PO Q8H PRN for Nausea Tramadol (Ultram), 50 MG PO Q6 PRN for Pain Allergies Coded Allergies: Adhesives (Verified Allergy, Unknown, unknown, 06/23/17) Amitriptyline (Verified Allergy, Unknown, unknown, 06/23/17) Amoxicillin (Verified Allergy, Unknown, unknown, 06/23/17) Baclofen (Verified Allergy, Unknown, unknown, 06/23/17) Benzalkonium Chloride (Verified Allergy, Unknown, UNKNOWN, 06/23/17) Benzocaine (Verified Allergy, Unknown, UNKNOWN, 06/23/17) Erythromycin (Verified Allergy, Unknown, unknown, 06/23/17) Gabapentin (Unverified Allergy, Unknown, UNKNOWN, 06/23/17) Isoflurane (Verified Allergy, Unknown, unknown, 06/23/17) Lanolin (Verified Allergy, Unknown, unknown, 06/23/17) Latex (Verified Allergy, Unknown, unknown, 06/23/17) Nitrofurantoin (Verified Allergy, Unknown, unknown, 06/23/17) Oxycodone (Verified Allergy, Unknown, unknown, 06/23/17) PATIENT TOLERATES MORPHINE Penicillins (Verified Allergy, Unknown, unknown, 06/23/17) Pregabalin (Unverified Allergy, Unknown, UNKNOWN, 06/23/17) Procaine (Verified Allergy, Unknown, unknown, 06/23/17) Promethazine (Verified Allergy, Unknown, unknown, 06/23/17) Propoxyphene (Verified Allergy, Unknown, unknown, 06/23/17) Sulfa Antibiotics (Verified Allergy, Unknown, CAN TAKE LASIX, 06/23/17) Sulfamethoxazole w/Trimethoprim (Verified Allergy, Unknown, unknown, ) Zinc (Verified Allergy, Unknown, UNKNOWN, 06/23/17) Prednisone (Verified Adverse Reaction, Unknown, UNKNOWN, 06/23/17) Physical Exam Vital Signs Date Time Temp Pulse Resp B/P (MAP) Pulse Ox O2 Delivery O2 Flow Rate FiO2 07/28/17 09:22 92 22 144/81 92 Room Air 07/28/17 08:01 86 20 125/81 97 Nasal Cannula 2.0 07/28/17 06:38 94 Nasal Cannula 2.0 07/28/17 06:36 87 16 123/66 90 Room Air 07/28/17 05:17 88 18 128/91 94 Room Air 07/28/17 04:44 89 07/28/17 04:18 37.0 86 18 136/103 97 Room Air Physical Exam HEENT: Head - normocephalic and atraumatic Pupils are equal, round, and reactive to light. Extraocular eye muscles are intact, and sclera are anicteric. Nose - moist nasal mucosa without discharge. Mouth - moist buccal mucosa. Oropharynx is nonerythematous and there is no tonsillar exudate or edema noted. Neck: Supple; no JVD, nuchal rigidity, cervical lymphadenopathy. Heart: Regular rate and rhythm. There is a normal S1 and S2 with no murmurs, clicks, or gallops appreciated. Lungs: Clear to auscultation bilaterally with no wheezes, rales, or rhonchi. Abdomen: Soft, completely nontender, nondistended, with good bowel sounds. There are no palpable pulsatile masses or hepatosplenomegaly. There is no guarding, rigidity, or rebound noted. Extremities: No palpable femoral pulse, dorsalis pedis pulse, or posterior tibial pulse. Skin: warm and dry with good turgor and no rashes. Neuro: I have seen this patient in the past and her neurological status seems to be at its baseline. She is alert and oriented to person and place. She does mumble at times. Medical Decision & Procedures ER Provider Diagnostic Interpretation: Radiology results as stated below per my review and the radiologist's interpretation: L ART DOP DUPLEX LWR EXT UNI HISTORY: 72 years-old Female cold left lower extremity acute sudden onset left leg coldness COMPARISON: None available TECHNIQUE: Multiple real-time sonographic images of the left lower extremity arterial structures were obtained assessing grayscale appearance and color flow FINDINGS: Study is limited secondary to combative patient. Triphasic waveforms within the common femoral, profunda femoris, superficial femoral and popliteal arteries. Biphasic waveforms in the anterior tibial and peroneal arteries with triphasic waveforms in the posterior tibial artery. Triphasic waveforms within the dorsalis pedis artery. No significantly elevated peak systolic velocities identified to suggest high-grade stenosis. No arterial occlusion. IMPRESSION: 1. Biphasic waveforms within the arterial structures about the calf suggests underlying peripheral arterial disease. 2. Triphasic waveforms above the level of the knee without evidence of significant inflow disease. The above report was generated using voice recognition software. It may contain grammatical, syntax or spelling errors. Electronically signed by: Eric Oconnor M.D. 07/28/2017 7:00 AM Laboratory Results 07/28/17 04:32 Red Blood Count 4.49, Mean Corpuscular Volume 92.2, Mean Corpuscular Hemoglobin 28.7, Mean Corpuscular Hemoglobin Concent 31.2, Mean Platelet Volume 9.4, Neutrophils (%) (Auto) 77.3, Lymphocytes (%) (Auto) 10.8, Monocytes (%) (Auto) 9.8, Eosinophils (%) (Auto) 1.4, Basophils (%) (Auto) 0.2, Neutrophils # (Auto) 9.36, Lymphocytes # (Auto) 1.31, Monocytes # (Auto) 1.19, Eosinophils # (Auto) 0.17, Basophils # (Auto) 0.03 07/28/17 04:32 Test 07/28/17 04:32 White Blood Count 12.12 K/uL (4.8-10.8) Red Blood Count 4.49 M/uL (4.2-5.4) Hemoglobin 12.9 g/dL (12.0-16.0) Hematocrit 41.4 % (37-47) Mean Corpuscular Volume 92.2 fL (80-100) Mean Corpuscular Hemoglobin 28.7 pg (25-34) Mean Corpuscular Hemoglobin Concent 31.2 g/dl (32-36) Platelet Count 196 K/uL (130-400) Mean Platelet Volume 9.4 fL (7.4-10.4) Neutrophils (%) (Auto) 77.3 % Lymphocytes (%) (Auto) 10.8 % Monocytes (%) (Auto) 9.8 % Eosinophils (%) (Auto) 1.4 % Basophils (%) (Auto) 0.2 % Neutrophils # (Auto) 9.36 K/uL (1.4-6.5) Lymphocytes # (Auto) 1.31 K/uL (1.2-3.4) Monocytes # (Auto) 1.19 K/uL (0.11-0.59) Eosinophils # (Auto) 0.17 K/uL (0-0.5) Basophils # (Auto) 0.03 K/uL (0-0.2) RDW Standard Deviation 53.8 fL (36.4-46.3) RDW Coefficient of Variation 15.9 % (11.5-14.5) Immature Granulocyte % (Auto) 0.5 % Immature Granulocyte # (Auto) 0.06 K/uL (0.00-0.02) Prothrombin Time 11.2 SECONDS (9.0-12.0) Prothromb Time International Ratio 1.1 (0.9-1.1) Activated Partial Thromboplast Time 25.8 SECONDS (21.0-31.0) Partial Thromboplastin Ratio 1.0 Anion Gap 5.0 mmol/L (3-11) Est Creatinine Clear Calc Drug Dose 50.9 ml/min Estimated GFR () 53.7 Estimated GFR (Non- 46.4 BUN/Creatinine Ratio 19.0 (10-20) Calcium Level 9.5 mg/dl (8.5-10.1) Laboratory results per my review. Medications Administered Medications (Trade) Dose Ordered Sig/Corby Route Start Time Stop Time Status Last Admin Dose Admin Lorazepam (Ativan Inj) 1 mg NOW STAT IV 07/28/17 05:35 07/28/17 05:36 DC 07/28/17 05:43 1 MG Sodium Chloride 500 ml @ 999 mls/hr Q31M STAT IV 07/28/17 07:14 07/28/17 07:44 DC 07/28/17 07:52 999 MLS/HR Procedure Ativan Inj 1mg IV ECG Per My Interpretation Indication: altered mental status Rate (beats per minute): 86 Rhythm: normal sinus Findings: no acute ischemic change, no ectopy, other (No ST segment changes) ED Course 0408: Past medical records reviewed. The patient was evaluated in room A3. A complete history and physical exam was performed. An IV lock was initiated and labs were drawn as above. The patient will go for ultrasound of the left leg which is cold to touch. 0535: Patient is becoming agitated and ultrasound. I ordered Ativan Inj 1mg IV 0638: I reevaluated the patient and updated her on her findings. The left leg seems to be more warm to the touch proximally than it had been before but the tib-fib region, ankle and foot are still extremely cold to touch. 0700: Patient was signed out to Dr. Mcclain at change of shifts. He has ordered CT angiogram of the left lower extremity. Medical Decision The patient is a 72 year old female who presents to the ED with constant cold left leg. Differential diagnosis includes arterial occlusion of LLE and neuropathy. Lab results show coags normal, BUN = 22, creatinine = 1.1, glucose = 184, potassium slightly high at 1.7, WBC = 12.1, and stable H&H. This is a 72-year-old female patient presents to the emergency department from [facility] with a cold left lower extremity. I could not palpate pulses throughout the entire left lower extremity. It was extremely cold to touch and mottled appearing. However, the patient denied any pain in that extremity. Ultrasound did show peripheral arterial disease but no golden occlusion. I remain concerned about the flow to the patient's foot as it is so cold and no pulses were obtainable. However, the patient's upper left leg and knee seemed to become more warm throughout her stay here in the emergency department. The case was signed out to Dr. Mcclain Medication Reconcilliation Current Medication List: was personally reviewed by me Blood Pressure Screening Patient's blood pressure: Normal blood pressure Blood pressure disposition: Did not require urgent referral Impression Primary Impression: Peripheral artery disease Scribe Attestation The scribe's documentation has been prepared under my direction and personally reviewed by me in its entirety. I confirm that the note above accurately reflects all work, treatment, procedures, and medical decision making performed by me. Departure Information Dispostion Still a Patient
[2017-07-28 04:44] LABS: BASO % 0.2 %; BASO ABS # 0.03 K/uL (0-0.2); EOS % 1.4 %; EOS ABS # 0.17 K/uL (0-0.5); HEMATOCRIT 41.4 % (37-47); HEMOGLOBIN 12.9 g/dL (12.0-16.0); IG# 0.06 K/uL (0.00-0.02); LYMPH % 10.8 %; LYMPH ABS # 1.31 K/uL (1.2-3.4); MEAN CELL VOLUME 92.2 fL (80-100); MEAN CORPUSCULAR HEMOGLOBIN 28.7 pg (25-34); MEAN CORPUSCULAR HGB CONC 31.2 g/dl (32-36); MEAN PLATELET VOLUME 9.4 fL (7.4-10.4); MONO % 9.8 %; MONO ABS # 1.19 K/uL (0.11-0.59); NEUT % 77.3 %; NEUT ABS # 9.36 K/uL (1.4-6.5); PLATELET COUNT 196 K/uL (130-400); RED CELL DISTRIBUTION WIDTH CV 15.9 % (11.5-14.5); RED CELL DISTRIBUTION WIDTH SD 53.8 fL (36.4-46.3); WHITE BLOOD COUNT 12.12 K/uL (4.8-10.8)
[2017-07-28] MEDS ORDERED: BENZ0.5T28 PO (04:53)
[2017-07-28 04:55] LABS: INR 1.1 (0.9-1.1); PTT PATIENT 25.8 SECONDS (21.0-31.0)
[2017-07-28] MEDS ORDERED: LCTL30 PO (05:06)
[2017-07-28 05:07] LABS: CALCIUM 9.5 mg/dl (8.5-10.1); CREATININE 1.18 mg/dl (0.60-1.20); POTASSIUM 5.7 mmol/L (3.5-5.1)
[2017-07-28] MEDS ORDERED: LORAZEPAM 2 MG/ML 1 ML VIAL IV STA (05:35)
[2017-07-28 06:38] VITALS: O2SAT 94
--- NOTE | 2017-07-28 07:01 | DIAGNOSTIC IMAGING REPORT ---
L ART DOP DUPLEX LWR EXT UNI HISTORY: 72 years-old Female cold left lower extremity acute sudden onset left leg coldness COMPARISON: None available TECHNIQUE: Multiple real-time sonographic images of the left lower extremity arterial structures were obtained assessing grayscale appearance and color flow FINDINGS: Study is limited secondary to combative patient. Triphasic waveforms within the common femoral, profunda femoris, superficial femoral and popliteal arteries. Biphasic waveforms in the anterior tibial and peroneal arteries with triphasic waveforms in the posterior tibial artery. Triphasic waveforms within the dorsalis pedis artery. No significantly elevated peak systolic velocities identified to suggest high-grade stenosis. No arterial occlusion. IMPRESSION: 1. Biphasic waveforms within the arterial structures about the calf suggests underlying peripheral arterial disease. 2. Triphasic waveforms above the level of the knee without evidence of significant inflow disease. The above report was generated using voice recognition software. It may contain grammatical, syntax or spelling errors. Electronically signed by: Eric Oconnor M.D. 07/28/2017 7:00 AM Dictated Date/Time: 07/28/2017 6:55 AM
[2017-07-28] MEDS ORDERED: SODIUM CHLORIDE 0.9% 500ML 500 ML IV STA (07:14)
[2017-07-28] MEDS ORDERED: OPTIRAY 320 IV PRN (07:30)
--- NOTE | 2017-07-28 08:15 | DIAGNOSTIC IMAGING REPORT ---
LOWER EXTREMITY WITH HISTORY: 72 years-old Female LT acute cold left leg with concern for vascular injury. COMPARISON: Duplex arterial study of same day. TECHNIQUE: Multiple axial CT images of the left lower extremity were obtained from the hip through the ankle following the intravenous administration of 115 mL Optiray 320 IV contrast . Coronal and sagittal reformatted images were obtained from the axial data set and were submitted for review. A dose lowering technique was used consistent with the principals of DEVANG. FINDINGS: Right hip arthroplasty noted on the localizer images. Bones appear moderately demineralized. Degenerative changes are seen about the left SI joint and pubic symphysis. Severe osteoarthritis of the left femoral acetabular joint with partial collapse of the left femoral head. Heterotopic ossifications are noted about the left femoral acetabular joint with remodeling changes. No pelvic fracture identified. Left femur appears intact without acute fracture or dislocation. Degenerative changes are noted about the bilateral feet with tricompartmental osteoarthritis about the bilateral knees. Nonaggressive appearing sclerotic lesion measuring 1.2 cm involving the right medial femoral condyle suggests a chondral lesion. Large stool ball of the rectal vault with moderate stool volume throughout the imaged colon suggesting constipation. Mild urinary bladder distention. Peripheral arterial calcifications are noted throughout the lower extremities. The common femoral, superficial femoral and popliteal arteries appear patent. Normal trifurcation with three-vessel flow seen to the level of the ankle bilaterally. There is mild muscular atrophy involving the bilateral lower extremities which appears symmetric. No drainable fluid collections, soft tissue mass or focal subcutaneous or intramuscular edema. IMPRESSION: 1. Peripheral arterial disease with three-vessel arterial flow seen to the level of the ankle. 2. No inflammatory changes or acute abnormality identified. 3. Severe osteoarthritis about the left femoral acetabular joint with chronic remodeling changes and heterotopic periarticular ossifications. Partial collapse/flattening of the left femoral head. 4. No acute fracture or dislocation. 5. Large stool ball of the rectal vault with constipation. The above report was generated using voice recognition software. It may contain grammatical, syntax or spelling errors. Electronically signed by: Eric Oconnor M.D. 07/28/2017 8:14 AM Dictated Date/Time: 07/28/2017 8:04 AM
--- NOTE | 2017-07-28 08:39 | EMERGENCY ROOM VISIT NOTE ---
ED Visit Note This patient signed out to me change of shift. History and physical verified by me. Patient presented this morning with a cold mottled leg, unable to palpate femoral pulse. Her ultrasound shows peripheral artery disease therefore the decision was made to send the patient for CTA of the lower extremity LOWER EXTREMITY WITH HISTORY: 72 years-old Female LT acute cold left leg with concern for vascular injury. COMPARISON: Duplex arterial study of same day. TECHNIQUE: Multiple axial CT images of the left lower extremity were obtained from the hip through the ankle following the intravenous administration of 115 mL Optiray 320 IV contrast . Coronal and sagittal reformatted images were obtained from the axial data set and were submitted for review. A dose lowering technique was used consistent with the principals of DEVANG. FINDINGS: Right hip arthroplasty noted on the localizer images. Bones appear moderately demineralized. Degenerative changes are seen about the left SI joint and pubic symphysis. Severe osteoarthritis of the left femoral acetabular joint with partial collapse of the left femoral head. Heterotopic ossifications are noted about the left femoral acetabular joint with remodeling changes. No pelvic fracture identified. Left femur appears intact without acute fracture or dislocation. Degenerative changes are noted about the bilateral feet with tricompartmental osteoarthritis about the bilateral knees. Nonaggressive appearing sclerotic lesion measuring 1.2 cm involving the right medial femoral condyle suggests a chondral lesion. Large stool ball of the rectal vault with moderate stool volume throughout the imaged colon suggesting constipation. Mild urinary bladder distention. Peripheral arterial calcifications are noted throughout the lower extremities. The common femoral, superficial femoral and popliteal arteries appear patent. Normal trifurcation with three-vessel flow seen to the level of the ankle bilaterally. There is mild muscular atrophy involving the bilateral lower extremities which appears symmetric. No drainable fluid collections, soft tissue mass or focal subcutaneous or intramuscular edema. IMPRESSION: 1. Peripheral arterial disease with three-vessel arterial flow seen to the level of the ankle. 2. No inflammatory changes or acute abnormality identified. 3. Severe osteoarthritis about the left femoral acetabular joint with chronic remodeling changes and heterotopic periarticular ossifications. Partial collapse/flattening of the left femoral head. 4. No acute fracture or dislocation. 5. Large stool ball of the rectal vault with constipation. The above report was generated using voice recognition software. It may contain grammatical, syntax or spelling errors. Electronically signed by: Eric Oconnor M.D. 07/28/2017 8:14 AM Dictated Date/Time: 07/28/2017 8:04 AM Upon my reexamination the leg has significantly improved. In addition I am able to Doppler pulses in her left foot. The patient at this point has no complaints and I feel she can be safely discharged back to the long-term however she does have significant peripheral artery disease and I cannot guarantee that this will not occur again. Based on this I am going to have the patient follow-up with us Dr. Deshpande. Problem List Medical Problems: (1) Chronic urinary tract infection Status: Chronic (2) Diabetes mellitus Status: Chronic (3) fibromyalgia Status: Chronic (4) Herniated disc Status: Chronic (5) Hypothyroidism Status: Chronic (6) Multiple sclerosis Status: Chronic Current/Historical Medications Scheduled Artificial Tear Solution (Artificial Tears), 1 DROPS OPB HS Aspirin (Aspirin Chewable), 81 MG PO QAM Benztropine Mesylate (Benztropine Mesylate), 0.5 MG PO BID Bisacodyl (Dulcolax), 10 MG OH Q2D Carboxymethylcellulose-Glyceri (Refresh Optive 1-0.9 %), 1 DROP OPB BID Cyanocobalamin (Vitamin B-12), 1,000 MCG PO DAILY Divalproex Sodium (Depakote Sprinkles), 125 MG PO TID Famotidine (Pepcid), 20 MG PO BID Furosemide (Lasix), 20 MG PO QAM Insulin Detemir (Levemir), 90 UNITS SQ HS Insulin Lispro (Human) (Humalog), 20 UNITS SQ AC Insulin Lispro (Human) (Humalog), 1 DOSE SQ UD Levothyroxine Sodium (Levothyroxine Sodium), 50 MCG PO QAM Menthol-Methyl Salicylate (Marissa (Bengay Greaseless), 1 APPLN TOP TID Metformin Hcl (Glucophage), 500 MG PO BIDM Metoprolol Tartrate (Lopressor), 50 MG PO BID Morphine Sulfate (Morphine Sulfate ER), 60 MG PO TID Mouthwashes (Biotene Dry Mouth Oral Ri), 1 SPRAY PO TID Potassium Chloride (Potassium Chloride ER), 20 MEQ PO QAM Probiotic Product (Acidophilus), 1 CAP PO HS Saline ([place] Nasal [place]), 1 SPRAY LITA HS Sennosides-Docusate Sodium (Senna Plus), 1 TABS PO TID Simvastatin (Zocor), 40 MG PO QPM Umeclidinium-Vilanterol (Anoro Ellipta 62.5-25 Mcg/INH), 1 PUFF INH DAILY Venlafaxine Hcl (Venlafaxine Hcl Er), 150 MG PO QAM Scheduled PRN Acetaminophen (Tylenol), 650 MG OH Q12 PRN for Pain or Fever Albuterol Sulf (Proventil 0.083% 2.5MG/3ML), 2.5 MG INH Q4H PRN for SOB/Wheezing Dimethicone-Petrolatum ([place] Ultimate Diabet 3-30 %), 1 APPLN TOP TID PRN for DRY SKIN Lactulose (Lactulose), 30 ML PO Q6H PRN for Constipation Ondansetron Hcl (Zofran), 4 MG PO Q8H PRN for Nausea Tramadol (Ultram), 50 MG PO Q6 PRN for Pain Allergies Coded Allergies: Adhesives (Verified Allergy, Unknown, unknown, 06/23/17) Amitriptyline (Verified Allergy, Unknown, unknown, 06/23/17) Amoxicillin (Verified Allergy, Unknown, unknown, 06/23/17) Baclofen (Verified Allergy, Unknown, unknown, 06/23/17) Benzalkonium Chloride (Verified Allergy, Unknown, UNKNOWN, 06/23/17) Benzocaine (Verified Allergy, Unknown, UNKNOWN, 06/23/17) Erythromycin (Verified Allergy, Unknown, unknown, 06/23/17) Gabapentin (Unverified Allergy, Unknown, UNKNOWN, 06/23/17) Isoflurane (Verified Allergy, Unknown, unknown, 06/23/17) Lanolin (Verified Allergy, Unknown, unknown, 06/23/17) Latex (Verified Allergy, Unknown, unknown, 06/23/17) Nitrofurantoin (Verified Allergy, Unknown, unknown, 06/23/17) Oxycodone (Verified Allergy, Unknown, unknown, 06/23/17) PATIENT TOLERATES MORPHINE Penicillins (Verified Allergy, Unknown, unknown, 06/23/17) Pregabalin (Unverified Allergy, Unknown, UNKNOWN, 06/23/17) Procaine (Verified Allergy, Unknown, unknown, 06/23/17) Promethazine (Verified Allergy, Unknown, unknown, 06/23/17) Propoxyphene (Verified Allergy, Unknown, unknown, 06/23/17) Sulfa Antibiotics (Verified Allergy, Unknown, CAN TAKE LASIX, 06/23/17) Sulfamethoxazole w/Trimethoprim (Verified Allergy, Unknown, unknown, ) Zinc (Verified Allergy, Unknown, UNKNOWN, 06/23/17) Prednisone (Verified Adverse Reaction, Unknown, UNKNOWN, 06/23/17) Vital Signs Date Time Temp Pulse Resp B/P (MAP) Pulse Ox O2 Delivery O2 Flow Rate FiO2 07/28/17 09:22 92 22 144/81 92 Room Air 07/28/17 08:01 86 20 125/81 97 Nasal Cannula 2.0 07/28/17 06:38 94 Nasal Cannula 2.0 07/28/17 06:36 87 16 123/66 90 Room Air 07/28/17 05:17 88 18 128/91 94 Room Air 07/28/17 04:44 89 07/28/17 04:18 37.0 86 18 136/103 97 Room Air Laboratory Results 07/28/17 04:32 Red Blood Count 4.49, Mean Corpuscular Volume 92.2, Mean Corpuscular Hemoglobin 28.7, Mean Corpuscular Hemoglobin Concent 31.2, Mean Platelet Volume 9.4, Neutrophils (%) (Auto) 77.3, Lymphocytes (%) (Auto) 10.8, Monocytes (%) (Auto) 9.8, Eosinophils (%) (Auto) 1.4, Basophils (%) (Auto) 0.2, Neutrophils # (Auto) 9.36, Lymphocytes # (Auto) 1.31, Monocytes # (Auto) 1.19, Eosinophils # (Auto) 0.17, Basophils # (Auto) 0.03 07/28/17 04:32 Test 07/28/17 04:32 White Blood Count 12.12 K/uL (4.8-10.8) Red Blood Count 4.49 M/uL (4.2-5.4) Hemoglobin 12.9 g/dL (12.0-16.0) Hematocrit 41.4 % (37-47) Mean Corpuscular Volume 92.2 fL (80-100) Mean Corpuscular Hemoglobin 28.7 pg (25-34) Mean Corpuscular Hemoglobin Concent 31.2 g/dl (32-36) Platelet Count 196 K/uL (130-400) Mean Platelet Volume 9.4 fL (7.4-10.4) Neutrophils (%) (Auto) 77.3 % Lymphocytes (%) (Auto) 10.8 % Monocytes (%) (Auto) 9.8 % Eosinophils (%) (Auto) 1.4 % Basophils (%) (Auto) 0.2 % Neutrophils # (Auto) 9.36 K/uL (1.4-6.5) Lymphocytes # (Auto) 1.31 K/uL (1.2-3.4) Monocytes # (Auto) 1.19 K/uL (0.11-0.59) Eosinophils # (Auto) 0.17 K/uL (0-0.5) Basophils # (Auto) 0.03 K/uL (0-0.2) RDW Standard Deviation 53.8 fL (36.4-46.3) RDW Coefficient of Variation 15.9 % (11.5-14.5) Immature Granulocyte % (Auto) 0.5 % Immature Granulocyte # (Auto) 0.06 K/uL (0.00-0.02) Prothrombin Time 11.2 SECONDS (9.0-12.0) Prothromb Time International Ratio 1.1 (0.9-1.1) Activated Partial Thromboplast Time 25.8 SECONDS (21.0-31.0) Partial Thromboplastin Ratio 1.0 Anion Gap 5.0 mmol/L (3-11) Est Creatinine Clear Calc Drug Dose 50.9 ml/min Estimated GFR () 53.7 Estimated GFR (Non- 46.4 BUN/Creatinine Ratio 19.0 (10-20) Calcium Level 9.5 mg/dl (8.5-10.1) Medications Administered Medications (Trade) Dose Ordered Sig/[place] Route Start Time Stop Time Status Last Admin Dose Admin Lorazepam (Ativan Inj) 1 mg NOW STAT IV 07/28/17 05:35 07/28/17 05:36 DC 07/28/17 05:43 1 MG Sodium Chloride 500 ml @ 999 mls/hr Q31M STAT IV 07/28/17 07:14 07/28/17 07:44 DC 07/28/17 07:52 999 MLS/HR Departure Information Impression Primary Impression: Peripheral artery disease Dispostion Still a Patient Referrals Cy Boyle M.D. (PCP) Patient Instructions My [facility]
[2017-07-28 09:22] VITALS: BP 144/81; PULSE 92; O2SAT 92
== END 2017-07-28 10:04 | disposition home or self-care (01) ==
LOC: EDBD 04:11 → C.EDA 04:12
DX: I73.9 Peripheral vascular disease, unspecified (principal); E11.51 Type 2 diabetes mellitus with diabetic peripheral angiopathy without gangrene; I48.91 Unspecified atrial fibrillation; F31.9 Bipolar disorder, unspecified; Z87.440 Personal history of urinary (tract) infections; E78.5 Hyperlipidemia, unspecified; M79.7 Fibromyalgia; K21.9 Gastro-esophageal reflux disease without esophagitis; Z86.73 Personal history of transient ischemic attack (TIA), and cerebral infarction without residual deficits; I10 Essential (primary) hypertension; E03.9 Hypothyroidism, unspecified; G35 Multiple sclerosis; Z79.82 Long term (current) use of aspirin; Z79.4 Long term (current) use of insulin; Z79.899 Other long term (current) drug therapy; Z88.1 Allergy status to other antibiotic agents; Z91.040 Latex allergy status; Z88.5 Allergy status to narcotic agent; Z88.0 Allergy status to penicillin; Z88.2 Allergy status to sulfonamides; Z88.8 Allergy status to other drugs, medicaments and biological substances